=== PATIENT | male | born 1960 | race Two or more races ===

== ENCOUNTER 2024-01-21 16:10 | Inpatient (IN) | payer MEDICARE, MEDICAID ==
[~2024-01-21] VITALS: Ht 190.5 cm; Wt 178.7 kg
[2024-01-21 18:12] LABS: Basophils # (auto) 0.1 10 ^3/uL (0-0.2); Basophils % (auto) 0.3 % (0.0-2.0); Eosinophils # (auto) 0.2 10 ^3/uL (0-0.8); Eosinophils % (auto) 1.1 % (0.0-7.0); Hematocrit 31.3 % (41.0-53.0); Hemoglobin 10.2 g/dL (13.5-17.5); Lymphocytes # (auto) 1.1 10 ^3/uL (0.4-5.4); Lymphocytes % (auto) 7.9 % (10.0-50.0); Mean Corpuscular Hemoglobin 27.9 pg (28.0-32.0); Mean Corpuscular Hgb Conc. 32.5 g/dL (32.0-36.0); Mean Corpuscular Volume 85.9 fL (80.0-100.0); Monocytes # (auto) 1.3 10 ^3/uL (0-1.3); Monocytes % (auto) 8.8 % (0.0-12.0); Neutrophils # (auto) 11.8 10 ^3/uL (1.6-8.6); Neutrophils % (auto) 81.9 % (37.0-80.0); Red Blood Cells 3.64 10^6/uL (4.5-5.90); White Blood Cell 14.4 10^3/uL (4.4-10.8)
[2024-01-21 18:35] LABS: Alanine Aminotransferase 12 U/L (7-40); Alkaline Phosphatase 173 U/L (46-116); Anion Gap 6 (5-15); Aspartate Aminotransferase 21 U/L (13-40); BUN/Creatinine Ratio 10.7 (10.0-20.0); Blood Urea Nitrogen 61 mg/dL (9-23); Calcium 8.2 mg/dL (8.7-10.4); Carbon Dioxide 25 mmol/L (20-30); Chloride 90 mmol/L (98-107); Glucose 224 mg/dL (74-106); Potassium 5.2 mmol/L (3.5-5.1); Sodium 121 mmol/L (136-145)
[2024-01-21 18:36] LABS: Albumin 3.4 g/dL (3.2-4.8); Bilirubin, Total 0.5 mg/dL (0.2-1.0); Total Protein 7.5 g/dL (5.7-8.2)
[2024-01-21] MEDS ORDERED: ACETAMINOPHEN 325 MG TAB PO PRN (19:45)
[2024-01-21] MEDS ORDERED: DOCUSATE SOD 100 MG CAP PO PRN (19:45)
[2024-01-21] MEDS ORDERED: ONDANSETRON HCL 4 MG/2 ML VIAL IV PRN (19:45)
[2024-01-21] MEDS ORDERED: hydrALAZINE HCL 20 MG/ML VL IV PRN (19:45)
[2024-01-21] MEDS ORDERED: MORPHINE SULFATE INJ 2 MG/ml SYRG IV PRN (21:30)
[2024-01-21] MEDS ORDERED: NITROGLYCERIN 0.4 MG SL TAB SL PRN (21:30)
[2024-01-22 00:40] VITALS: PULSE 102; RESP 18; O2SAT 99
[2024-01-22] MEDS: APIXABAN 5 MG TAB PO SCH (01:09)
[2024-01-22] MEDS: CARVEDILOL 12.5 MG TAB PO SCH (01:10)
[2024-01-22] MEDS: cefTRIAXone 1GM/50ML D5W 50 ML IV ONE (01:11)
[2024-01-22] MEDS: ATORVASTATIN 20 MG TAB PO SCH (01:11)
[2024-01-22 02:58] LABS: Urine Bacteria None Seen /hpf (None Seen)
[2024-01-22 03:18] LABS: Urine Blood TRACE /uL (Negative); Urine Clarity Clear (Clear); Urine Color Light-Yellow (Yellow); Urine Protein, UAD 2+ (Negative); Urine Specific Gravity 1.007 (1.001-1.035); Urine Urobilinogen Normal (Negative); Urine WBC 4 /hpf (0 - 3)
[2024-01-22] MEDS: HYDROcodone-ACET 5/325MG TAB PO PRN (05:21)
[2024-01-22 06:18] LABS: Basophils # (auto) 0 10 ^3/uL (0-0.2); Basophils % (auto) 0.3 % (0.0-2.0); Eosinophils # (auto) 0.1 10 ^3/uL (0-0.8); Eosinophils % (auto) 0.9 % (0.0-7.0); Hematocrit 29.6 % (41.0-53.0); Hemoglobin 9.7 g/dL (13.5-17.5); Lymphocytes # (auto) 1.1 10 ^3/uL (0.4-5.4); Lymphocytes % (auto) 7.6 % (10.0-50.0); Mean Corpuscular Hgb Conc. 32.7 g/dL (32.0-36.0); Mean Corpuscular Volume 85.8 fL (80.0-100.0); Monocytes # (auto) 1.2 10 ^3/uL (0-1.3); Monocytes % (auto) 8.4 % (0.0-12.0); Neutrophils # (auto) 11.9 10 ^3/uL (1.6-8.6); Neutrophils % (auto) 82.8 % (37.0-80.0); Nucleated Red Blood Cells % 0.1 %; Red Blood Cells 3.44 10^6/uL (4.5-5.90); Red Cell Distribution Width 14.2 % (11.8-14.3); White Blood Cell 14.4 10^3/uL (4.4-10.8)
[2024-01-22 06:34] LABS: Alanine Aminotransferase 12 U/L (7-40); Albumin 3.2 g/dL (3.2-4.8); Alkaline Phosphatase 164 U/L (46-116); Anion Gap 8 (5-15); Aspartate Aminotransferase 20 U/L (13-40); BUN/Creatinine Ratio 10.9 (10.0-20.0); Blood Urea Nitrogen 66 mg/dL (9-23); Calcium 8.2 mg/dL (8.7-10.4); Carbon Dioxide 24 mmol/L (20-30); Chloride 89 mmol/L (98-107); Glucose 216 mg/dL (74-106); Sodium 121 mmol/L (136-145)
[2024-01-22 06:35] LABS: Bilirubin, Total 0.5 mg/dL (0.2-1.0); Total Protein 7.3 g/dL (5.7-8.2)
[2024-01-22 06:39] LABS: Potassium 5.7 mmol/L (3.5-5.1)
[2024-01-22] MEDS: SODIUM ZIRCONIUM CYCL 10 GM PAK PO ONE (07:42)
[2024-01-22] MEDS: ALBUTEROL SULF 2.5 MG/0.5ML(0.5%) NEB SOLN NEB ONE (07:42)
[2024-01-22] MEDS: cefTRIAXone 1GM/50ML D5W 50 ML IV SCH (07:42)
[2024-01-22] MEDS: B-COMPLEX W/ C & FOLIC ACID(NEPHROVITE TAB) PO SCH (07:43)
[2024-01-22] MEDS: SEVELAMER 800 MG TAB PO SCH (07:43)
[2024-01-22] MEDS: SODIUM BICARB 8.4% 50Meq/50ml SYR INJ IV ONE (07:44)
[2024-01-22] MEDS: FUROSEMIDE 40 MG/4 ML VIAL IV ONE (07:44)
[2024-01-22] MEDS: DEXTROSE (50%) 50ML SYRG IV ONE (07:44)
[2024-01-22] MEDS: InsuLIN REG 1unit/0.01ml Soln (100units/ml) IV ONE (07:48)
[2024-01-22] MEDS: CALCIUM GLUC 1,000mg/50ml-NS 50 ML IV ONE ×2 (08:21)
[2024-01-22] MEDS: FAMOTIDINE 20 MG TAB PO SCH (08:22)
[2024-01-22] MEDS ORDERED: SODIUM BICARB 8.4% 50Meq/50ml SYR INJ IV ONE (08:30)
[2024-01-22] MEDS ORDERED: DEXTROSE (50%) 50ML SYRG IV ONE (08:30)
[2024-01-22] MEDS ORDERED: FUROSEMIDE 20 MG/2 ML VIAL IV ONE (08:30)
[2024-01-22] MEDS ORDERED: InsuLIN REG 1unit/0.01ml Soln (100units/ml) IV ONE (08:30)
[2024-01-22] MEDS ORDERED: ALBUTEROL SULF 2.5 MG/0.5ML(0.5%) NEB SOLN NEB ONE (08:30)
[2024-01-22 08:54] VITALS: PULSE 85; RESP 18; O2SAT 91; O2SAT 98
[2024-01-22] MEDS: SODIUM CHL 0.9% 1000 ML BAG XX ONE (09:30)
[2024-01-22] MEDS ORDERED: ASPirin 81 mg TAB PO SCH (10:00)
[2024-01-22] MEDS ORDERED: FAMOTIDINE (10MG/ML) 2ML VL IV SCH (10:00)
[2024-01-22 11:34] LABS: % Iron Saturation 22.3 % (20-55)
[2024-01-22] MEDS ORDERED: DEXTROSE (50%) 50ML SYRG IV PRN (16:00)
[2024-01-22] MEDS: InsuLIN REG 1unit/0.01ml Soln (100units/ml) SC SCH (17:10)
[2024-01-22] MEDS: ACCU-CHEK COMFORT CURVE STRIP VI SCH (17:10)
[2024-01-22] MEDS: AZITHROMYCIN 500MG/ 250ML 250 ML IV ONE (19:00)
[2024-01-22 19:10] VITALS: PULSE 85; RESP 18; O2SAT 98
[2024-01-22 19:31] LABS: COVID19 ANTIGEN SOFIA FIA NEGATIVE (NEGATIVE); Rapid Influenza A Negative (Negative); Rapid Influenza B Negative (Negative)
[2024-01-22] MEDS: EPOETIN ALFA-EPBX 4,000 UNIT/ML VIAL SC ONE (21:13)
[2024-01-22] MEDS: INSULIN LANTUS (GLARGINE) 1 /0.01ml (100units/ml) SC SCH (21:24)
[2024-01-23] VITALS (7 sets, daily range): BP systolic 113–122; BP diastolic 51–64; PULSE 71–84; RESP 18–22; TEMP 36.6; O2SAT 93–100
[2024-01-23] MEDS ORDERED: OYST500T28 (03:09)
[2024-01-23] MEDS ORDERED: ACET-1882 PO (03:09)
[2024-01-23 06:20] LABS: Basophils # (auto) 0 10 ^3/uL (0-0.2); Basophils % (auto) 0.3 % (0.0-2.0); Eosinophils # (auto) 0.2 10 ^3/uL (0-0.8); Eosinophils % (auto) 2.1 % (0.0-7.0); Hematocrit 37.7 % (41.0-53.0); Hemoglobin 13.1 g/dL (13.5-17.5); Lymphocytes # (auto) 2.2 10 ^3/uL (0.4-5.4); Lymphocytes % (auto) 29.6 % (10.0-50.0); Mean Corpuscular Hemoglobin 30.7 pg (28.0-32.0); Mean Corpuscular Hgb Conc. 34.7 g/dL (32.0-36.0); Mean Corpuscular Volume 88.5 fL (80.0-100.0); Monocytes # (auto) 0.8 10 ^3/uL (0-1.3); Monocytes % (auto) 10.4 % (0.0-12.0); Neutrophils # (auto) 4.2 10 ^3/uL (1.6-8.6); Neutrophils % (auto) 57.6 % (37.0-80.0); Red Blood Cells 4.26 10^6/uL (4.5-5.90); Red Cell Distribution Width 12.8 % (11.8-14.3); White Blood Cell 7.3 10^3/uL (4.4-10.8)
[2024-01-23 06:26] LABS: Potassium 4.1 mmol/L (3.5-5.1); Sodium 140 mmol/L (136-145)
[2024-01-23 06:27] LABS: Anion Gap 6 (5-15); Carbon Dioxide 25 mmol/L (20-30)
[2024-01-23 06:28] LABS: Calcium 8.4 mg/dL (8.7-10.4)
[2024-01-23 06:32] LABS: BUN/Creatinine Ratio 11.1 (10.0-20.0); Blood Urea Nitrogen 11 mg/dL (9-23); Glucose 88 mg/dL (74-106)
[2024-01-23 06:33] LABS: Chloride 109 mmol/L (98-107)
[2024-01-23 06:35] LABS: Phosphorus 2.9 mg/dL (2.4-5.1)
[2024-01-23] MEDS ORDERED: AUG875T PO ×2 (09:10→18:59)
[2024-01-23 09:18] LABS: Hepatitis B Surface Antigen Negative (Negative)
[2024-01-23 09:39] LABS: Hepatitis A Ab IgM Negative; Hepatitis B Core IgM Negative
[2024-01-23 09:40] LABS: Hepatitis C Antibody Negative (Negative)
[2024-01-23] MEDS ORDERED: APIX2.5T PO ×2 (10:04→18:59)
[2024-01-23] MEDS ORDERED: MUPI2OIN2 EX ×2 (15:01→18:59)
[2024-01-23] MEDS ORDERED: DOXY-448 PO ×2 (15:04→18:59)
[2024-01-23] MEDS ORDERED: AZITHROMYCIN 500MG/ 250ML 250 ML IV SCH (22:00)
== END 2024-01-23 20:14 | disposition home or self-care (01) | DRG 177 ==
LOC: ER 16:10 → TELE 21:20 → OVERFLOW 21:20 → UNDOADMIN 21:20 → TELE-CENTR 01-23 02:44
PROVIDERS: ADMIT Internal Medicine Pulmonary Disease; ATTEND Internal Medicine Pulmonary Disease
PROC: 5A1D70Z Performance of Urinary Filtration, Intermittent, Less than 6 Hours Per Day (ICD-10-PCS; principal; 2024-01-22)
DX: J15.69 Pneumonia due to other Gram-negative bacteria (principal); J96.01 Acute respiratory failure with hypoxia; N18.6 End stage renal disease; J44.0 Chronic obstructive pulmonary disease with (acute) lower respiratory infection; I13.2 Hypertensive heart and chronic kidney disease with heart failure and with stage 5 chronic kidney disease, or end stage renal disease; J44.1 Chronic obstructive pulmonary disease with (acute) exacerbation; Z68.41 Body mass index [BMI] 40.0-44.9, adult; J15.9 Unspecified bacterial pneumonia; E11.22 Type 2 diabetes mellitus with diabetic chronic kidney disease; E87.5 Hyperkalemia; D63.1 Anemia in chronic kidney disease; E66.01 Morbid (severe) obesity due to excess calories; I50.9 Heart failure, unspecified; E11.65 Type 2 diabetes mellitus with hyperglycemia; Z20.822 Contact with and (suspected) exposure to COVID-19; K21.9 Gastro-esophageal reflux disease without esophagitis; I48.91 Unspecified atrial fibrillation; Z96.653 Presence of artificial knee joint, bilateral; Z99.2 Dependence on renal dialysis; Z88.8 Allergy status to other drugs, medicaments and biological substances; Z88.1 Allergy status to other antibiotic agents
CPT/HCPCS: 36415; 71045; 71250; 76604; 80048; 80053; 80074; 81001; 82728; 82962; 83036; 83540; 83550; 83605; 83880; 84100; 84132; 84484; 85025; 87040; 87081; 87426; 87804; 90935; 93306; 93970; 94640; G0378; J1642; J1815

== ENCOUNTER 2024-01-30 11:00 | Inpatient (IN) | payer MEDICARE, MEDICAID ==
[~2024-01-30] VITALS: Ht 190.5 cm; Wt 173.5 kg
[~2024-01-30 11:00] MED LIST: ACET-1882 PO; APIX2.5T PO; AUG875T PO; DOXY-448 PO; MUPI2OIN2 EX; OYST500T28
[2024-01-30 11:56] LABS: Basophils # (auto) 0.1 10 ^3/uL (0-0.2); Basophils % (auto) 0.4 % (0.0-2.0); Eosinophils # (auto) 0.2 10 ^3/uL (0-0.8); Eosinophils % (auto) 1.5 % (0.0-7.0); Hemoglobin 9.7 g/dL (13.5-17.5); Lymphocytes # (auto) 1.2 10 ^3/uL (0.4-5.4); Mean Corpuscular Hemoglobin 28.5 pg (28.0-32.0); Mean Corpuscular Hgb Conc. 32.3 g/dL (32.0-36.0); Mean Corpuscular Volume 88.3 fL (80.0-100.0); Monocytes # (auto) 1.3 10 ^3/uL (0-1.3); Monocytes % (auto) 8.5 % (0.0-12.0); Neutrophils # (auto) 12.5 10 ^3/uL (1.6-8.6); Neutrophils % (auto) 81.6 % (37.0-80.0); Nucleated Red Blood Cells % 0.1 %; Red Cell Distribution Width 14.6 % (11.8-14.3); White Blood Cell 15.3 10^3/uL (4.4-10.8)
[2024-01-30 12:00] VITALS: PULSE 100; O2SAT 99
[2024-01-30 12:03] LABS: Alanine Aminotransferase 12 U/L (7-40); Albumin 3.2 g/dL (3.2-4.8); Alkaline Phosphatase 159 U/L (46-116); Anion Gap 6 (5-15); Aspartate Aminotransferase 17 U/L (13-40); BUN/Creatinine Ratio 8.6 (10.0-20.0); Blood Urea Nitrogen 44 mg/dL (9-23); Carbon Dioxide 28 mmol/L (20-30); Chloride 91 mmol/L (98-107); Glucose 321 mg/dL (74-106); INR 1.18 (0.9-1.15); Partial Thromboplastin Time 31.2 SEC (24.5-34.5); Potassium 4.9 mmol/L (3.5-5.1); Prothrombin Time 12.4 sec (9.3-11.8); Sodium 125 mmol/L (136-145)
[2024-01-30 12:04] LABS: Bilirubin, Total 0.3 mg/dL (0.2-1.0); Total Protein 7.5 g/dL (5.7-8.2)
[2024-01-30] MEDS ORDERED: ACETAMINOPHEN 325 MG TAB PO PRN (15:30)
[2024-01-30] MEDS: SODIUM CHLOR 0.9% PF (SALINE LOCK) 10ML VIAL/SYR IV SCH (21:52)
[2024-01-30] MEDS: APIXABAN 2.5 MG TAB PO SCH (22:18)
[2024-01-30] MEDS: BUMETANIDE 2.5mg/10ml (0.25 mg/ml) INJ IV SCH (22:18)
[2024-01-30] MEDS: HYDROcodone-ACET 5/325MG TAB PO PRN (22:18)
[2024-01-30] MEDS: ONDANSETRON HCL 4 MG/2 ML VIAL IV PRN (22:19)
[2024-01-30 23:57] VITALS: BP 99/53; PULSE 86; RESP 19; TEMP 98.7; O2SAT 95
[2024-01-31] VITALS (7 sets, daily range): BP systolic 99–134; BP diastolic 45–99; PULSE 67–98; RESP 15–19; TEMP 97–98.9; O2SAT 88–100
[2024-01-31] MEDS ORDERED: MAGN241.4 PO (01:58)
[2024-01-31] MEDS ORDERED: GUAI400T13 PO (01:58)
[2024-01-31] MEDS ORDERED: CYCL-839 PO (01:58)
[2024-01-31] MEDS ORDERED: FURO40TA4 PO (01:58)
[2024-01-31] MEDS ORDERED: ATOR20TA50 PO (01:58)
[2024-01-31] MEDS ORDERED: APIX5TAB PO (01:58)
[2024-01-31] MEDS ORDERED: SITA50TA PO (01:58)
[2024-01-31 07:59] LABS: Chloride 92 mmol/L (98-107); Potassium 5.1 mmol/L (3.5-5.1); Sodium 124 mmol/L (136-145)
[2024-01-31 08:00] LABS: Anion Gap 7 (5-15); Calcium 8.3 mg/dL (8.7-10.4); Carbon Dioxide 25 mmol/L (20-30)
[2024-01-31 08:05] LABS: BUN/Creatinine Ratio 8.2 (10.0-20.0); Blood Urea Nitrogen 47 mg/dL (9-23)
[2024-01-31 08:06] LABS: Glucose 178 mg/dL (74-106)
[2024-01-31 10:08] LABS: Basophils # (auto) 0.1 10 ^3/uL (0-0.2); Basophils % (auto) 0.9 % (0.0-2.0); Eosinophils # (auto) 0.3 10 ^3/uL (0-0.8); Lymphocytes # (auto) 1.7 10 ^3/uL (0.4-5.4); Lymphocytes % (auto) 11.5 % (10.0-50.0); Mean Corpuscular Hemoglobin 28.2 pg (28.0-32.0); Mean Corpuscular Hgb Conc. 32.3 g/dL (32.0-36.0); Mean Corpuscular Volume 87.4 fL (80.0-100.0); Monocytes # (auto) 1.5 10 ^3/uL (0-1.3); Monocytes % (auto) 10.2 % (0.0-12.0); Neutrophils # (auto) 10.8 10 ^3/uL (1.6-8.6); Neutrophils % (auto) 75.4 % (37.0-80.0); Red Blood Cells 3.55 10^6/uL (4.5-5.90); Red Cell Distribution Width 14.6 % (11.8-14.3); White Blood Cell 14.3 10^3/uL (4.4-10.8)
[2024-01-31] MEDS: CEFEPIME 1GM/ 50ML 50 ML IV SCH (13:04)
[2024-01-31] MEDS ORDERED: DEXTROSE (50%) 50ML SYRG IV PRN (15:30)
[2024-01-31] MEDS: ACCU-CHEK COMFORT CURVE STRIP VI SCH (17:42)
[2024-01-31] MEDS: FUROSEMIDE 40 MG TAB PO ONE (17:45)
[2024-01-31] MEDS: InsuLIN REG 1unit/0.01ml Soln (100units/ml) SC SCH ×2 (17:45→22:13)
[2024-01-31] MEDS: CALCIUM ACETATE 667 MG CAP PO SCH (17:48)
[2024-01-31] MEDS: ATORVASTATIN 20 MG TAB PO SCH (21:57)
[2024-01-31] MEDS: APIXABAN 5 MG TAB PO SCH (21:57)
[2024-02-01 01:00] VITALS: BP 119/63; PULSE 86; RESP 18; TEMP 98.1; O2SAT 92
[2024-02-01 05:00] VITALS: BP 122/68; PULSE 98; RESP 18; TEMP 98; O2SAT 92
[2024-02-01] MEDS: SODIUM CHL 0.9% 1000 ML BAG XX ONE (07:00)
[2024-02-01 07:33] LABS: Basophils # (auto) 0.1 10 ^3/uL (0-0.2); Basophils % (auto) 0.5 % (0.0-2.0); Eosinophils # (auto) 0.2 10 ^3/uL (0-0.8); Eosinophils % (auto) 1.5 % (0.0-7.0); Hematocrit 31.9 % (41.0-53.0); Hemoglobin 10.1 g/dL (13.5-17.5); Lymphocytes # (auto) 1.4 10 ^3/uL (0.4-5.4); Lymphocytes % (auto) 8.5 % (10.0-50.0); Mean Corpuscular Hemoglobin 27.9 pg (28.0-32.0); Mean Corpuscular Hgb Conc. 31.5 g/dL (32.0-36.0); Mean Corpuscular Volume 88.6 fL (80.0-100.0); Monocytes # (auto) 1.4 10 ^3/uL (0-1.3); Monocytes % (auto) 8.6 % (0.0-12.0); Neutrophils % (auto) 80.9 % (37.0-80.0); Red Cell Distribution Width 14.4 % (11.8-14.3); White Blood Cell 16.1 10^3/uL (4.4-10.8)
[2024-02-01 07:44] LABS: Chloride 90 mmol/L (98-107); Sodium 124 mmol/L (136-145)
[2024-02-01 07:45] LABS: Anion Gap 12 (5-15); Calcium 8.2 mg/dL (8.7-10.4); Carbon Dioxide 22 mmol/L (20-30)
[2024-02-01 07:49] VITALS: BP 108/57; PULSE 66; RESP 22; TEMP 98.6
[2024-02-01 07:50] LABS: BUN/Creatinine Ratio 7.4 (10.0-20.0); Blood Urea Nitrogen 48 mg/dL (9-23); Glucose 166 mg/dL (74-106)
[2024-02-01 07:54] LABS: Potassium 5.7 mmol/L (3.5-5.1)
[2024-02-01] MEDS ORDERED: VANCOMYCIN PER PHARMACY 0 MG IV SCH (09:30)
[2024-02-01] MEDS: MUPIROCIN 2% OINT 15gm or 22gm FOR MRSA NARES EACHNOSTRI SCH (10:04)
[2024-02-01 11:44] VITALS: BP 136/55; PULSE 82; RESP 20; TEMP 98.7; O2SAT 97
[2024-02-01] MEDS: FUROSEMIDE 40 MG TAB PO SCH (14:12)
[2024-02-01] MEDS: VANCOMYCIN 1GM/200ML 200 ML IV ONE (14:30)
[2024-02-01 16:38] VITALS: BP 125/71; PULSE 83; RESP 22; TEMP 98.7; O2SAT 90
[2024-02-01] MEDS: METOPROLOL SUCCINATE XL 50 MG TAB PO ONE (19:30)
[2024-02-01 21:00] VITALS: BP 115/64; PULSE 74; RESP 18; O2SAT 95
[2024-02-01] MEDS: EPOETIN ALFA-EPBX 10,000 UNIT/1ML VIAL SC ONE (21:01)
[2024-02-02] VITALS (7 sets, daily range): BP systolic 96–138; BP diastolic 50–68; PULSE 63–102; RESP 16–20; TEMP 97.3–98.7; O2SAT 90–97
[2024-02-02 06:09] LABS: Chloride 95 mmol/L (98-107); Potassium 4.9 mmol/L (3.5-5.1)
[2024-02-02 06:10] LABS: Anion Gap 8 (5-15); Basophils # (auto) 0.1 10 ^3/uL (0-0.2); Basophils % (auto) 0.5 % (0.0-2.0); Calcium 8.6 mg/dL (8.7-10.4); Carbon Dioxide 28 mmol/L (20-30); Eosinophils # (auto) 0.2 10 ^3/uL (0-0.8); Eosinophils % (auto) 1.5 % (0.0-7.0); Hematocrit 35.4 % (41.0-53.0); Hemoglobin 11.5 g/dL (13.5-17.5); Lymphocytes # (auto) 0.8 10 ^3/uL (0.4-5.4); Mean Corpuscular Hemoglobin 28.9 pg (28.0-32.0); Mean Corpuscular Hgb Conc. 32.5 g/dL (32.0-36.0); Mean Corpuscular Volume 88.9 fL (80.0-100.0); Monocytes # (auto) 1.2 10 ^3/uL (0-1.3); Monocytes % (auto) 9.6 % (0.0-12.0); Neutrophils # (auto) 9.8 10 ^3/uL (1.6-8.6); Neutrophils % (auto) 81.4 % (37.0-80.0); Nucleated Red Blood Cells % 0.1 %; Red Blood Cells 3.98 10^6/uL (4.5-5.90); Red Cell Distribution Width 14.9 % (11.8-14.3); White Blood Cell 12.1 10^3/uL (4.4-10.8)
[2024-02-02 06:15] LABS: BUN/Creatinine Ratio 7.1 (10.0-20.0); Glucose 214 mg/dL (74-106)
[2024-02-02 06:36] LABS: Blood Urea Nitrogen 38 mg/dL (9-23); Sodium 131 mmol/L (136-145)
[2024-02-02] MEDS: METOPROLOL SUCCINATE XL 50 MG TAB PO SCH (09:19)
[2024-02-02 10:03] LABS: Base Excess -0.3 mmol/L (-2.0-2.0)
[2024-02-02] MEDS: VANCOMYCIN 1GM/200ML 200 ML IV ONE (16:00)
[2024-02-02] MEDS ORDERED: DOX100PBAE PO (17:14)
[2024-02-03] VITALS (8 sets, daily range): BP systolic 105–133; BP diastolic 55–67; PULSE 69–92; RESP 16–21; TEMP 36.6–37; O2SAT 91–100
[2024-02-03 08:55] LABS: Hepatitis B Surface Antigen Negative (Negative)
[2024-02-03 09:16] LABS: Hepatitis A Ab IgM Negative
[2024-02-03 09:17] LABS: Hepatitis B Core IgM Negative; Hepatitis C Antibody Negative (Negative)
[2024-02-03 09:32] LABS: Chloride 97 mmol/L (98-107); Potassium 5.1 mmol/L (3.5-5.1); Sodium 133 mmol/L (136-145)
[2024-02-03 09:33] LABS: Anion Gap 11 (5-15); Carbon Dioxide 25 mmol/L (20-30)
[2024-02-03 09:34] LABS: Calcium 8.1 mg/dL (8.7-10.4)
[2024-02-03 09:39] LABS: BUN/Creatinine Ratio 9.7 (10.0-20.0); Glucose 186 mg/dL (74-106)
[2024-02-03 09:41] LABS: Blood Urea Nitrogen 58 mg/dL (9-23)
[2024-02-03] MEDS: SODIUM ZIRCONIUM CYCL 10 GM PAK PO ONE (12:12)
[2024-02-03] MEDS: VANCOMYCIN 1GM/200ML 200 ML IV ONE (12:13)
[2024-02-04] MEDS ORDERED: SODIUM CHL 0.9% 1000 ML BAG XX ONE (07:00)
[2024-02-04] MEDS ORDERED: EPOETIN ALFA-EPBX 10,000 UNIT/1ML VIAL SC ONE (21:00)
== END 2024-02-03 22:38 | disposition home or self-care (01) | DRG 640 ==
LOC: ER 11:00 → EDBD 11:00 → OVERFLOW 15:26 → EAST 15:26 → CENTRAL 23:43 → EAST 02-02 14:46
PROVIDERS: ADMIT Internal Medicine Geriatric Medicine; ATTEND Emergency Medicine
PROC: 5A1D70Z Performance of Urinary Filtration, Intermittent, Less than 6 Hours Per Day (ICD-10-PCS; principal; 2024-02-01)
DX: E87.5 Hyperkalemia (principal); N18.6 End stage renal disease; I13.2 Hypertensive heart and chronic kidney disease with heart failure and with stage 5 chronic kidney disease, or end stage renal disease; Z68.42 Body mass index [BMI] 45.0-49.9, adult; J44.0 Chronic obstructive pulmonary disease with (acute) lower respiratory infection; J96.10 Chronic respiratory failure, unspecified whether with hypoxia or hypercapnia; E66.2 Morbid (severe) obesity with alveolar hypoventilation; E87.1 Hypo-osmolality and hyponatremia; I48.0 Paroxysmal atrial fibrillation; D63.1 Anemia in chronic kidney disease; E83.39 Other disorders of phosphorus metabolism; I50.9 Heart failure, unspecified; E11.22 Type 2 diabetes mellitus with diabetic chronic kidney disease; K21.9 Gastro-esophageal reflux disease without esophagitis; Z88.8 Allergy status to other drugs, medicaments and biological substances; Z79.899 Other long term (current) drug therapy; Z79.1 Long term (current) use of non-steroidal anti-inflammatories (NSAID); Z88.1 Allergy status to other antibiotic agents; Z99.2 Dependence on renal dialysis; Z74.01 Bed confinement status; Z79.85 Long-term (current) use of injectable non-insulin antidiabetic drugs; J20.9 Acute bronchitis, unspecified
CPT/HCPCS: 36415; 36600; 71045; 76604; 80048; 80053; 80074; 80202; 82565; 82805; 82962; 84100; 85025; 85610; 85730; 87040; 87081; 90935; 93005; G0378; J1642; J1815; J2405

== ENCOUNTER 2024-02-05 13:56 | Inpatient (IN) | payer MEDICARE, MEDICAID ==
[~2024-02-05] VITALS: Ht 182.9 cm; Wt 164.4 kg
[~2024-02-05 13:56] MED LIST changes: +APIX5TAB PO; +ATOR20TA50 PO; +CYCL-839 PO; +DOX100PBAE PO; +FURO40TA4 PO; +GUAI400T13 PO; +MAGN241.4 PO; +SITA50TA PO
[2024-02-05 14:16] VITALS: PULSE 81; RESP 18; O2SAT 98
[2024-02-05 15:44] LABS: Basophils # (auto) 0.1 10 ^3/uL (0-0.2); Basophils % (auto) 0.9 % (0.0-2.0); Eosinophils # (auto) 0.2 10 ^3/uL (0-0.8); Eosinophils % (auto) 1.5 % (0.0-7.0); Hematocrit 32.9 % (41.0-53.0); Hemoglobin 10.5 g/dL (13.5-17.5); Lymphocytes # (auto) 1.2 10 ^3/uL (0.4-5.4); Lymphocytes % (auto) 9.5 % (10.0-50.0); Mean Corpuscular Hemoglobin 27.8 pg (28.0-32.0); Mean Corpuscular Hgb Conc. 31.8 g/dL (32.0-36.0); Mean Corpuscular Volume 87.5 fL (80.0-100.0); Monocytes # (auto) 1.3 10 ^3/uL (0-1.3); Neutrophils # (auto) 9.4 10 ^3/uL (1.6-8.6); Neutrophils % (auto) 77.1 % (37.0-80.0); Red Blood Cells 3.76 10^6/uL (4.5-5.90); Red Cell Distribution Width 15.1 % (11.8-14.3); White Blood Cell 12.2 10^3/uL (4.4-10.8)
[2024-02-05 16:04] LABS: Alanine Aminotransferase 13 U/L (7-40); Albumin 3.4 g/dL (3.2-4.8); Alkaline Phosphatase 178 U/L (46-116); Anion Gap 10 (5-15); Aspartate Aminotransferase 23 U/L (13-40); BUN/Creatinine Ratio 8.3 (10.0-20.0); Bilirubin, Total 0.3 mg/dL (0.2-1.0); Blood Urea Nitrogen 62 mg/dL (9-23); Calcium 8.8 mg/dL (8.7-10.4); Carbon Dioxide 25 mmol/L (20-30); Chloride 96 mmol/L (98-107); Glucose 257 mg/dL (74-106); Potassium 4.7 mmol/L (3.5-5.1); Sodium 131 mmol/L (136-145); Total Protein 7.9 g/dL (5.7-8.2)
[2024-02-05 16:22] LABS: Urine Bacteria None Seen /hpf (None Seen)
[2024-02-05 16:33] LABS: Urine Blood TRACE /uL (Negative); Urine Clarity Clear (Clear); Urine Color Light-Yellow (Yellow); Urine Protein, UAD 2+ (Negative); Urine Urobilinogen Normal (Negative); Urine WBC 5 /hpf (0 - 3); Urine pH 6.5 (5.0-9.0)
[2024-02-05] MEDS: FUROSEMIDE 20 MG/2 ML VIAL IV ONE ×2 (16:59→20:51)
[2024-02-05 19:17] VITALS: PULSE 109; RESP 18; O2SAT 100
[2024-02-05] MEDS ORDERED: ACETAMINOPHEN 325 MG TAB PO PRN (20:00)
[2024-02-05] MEDS ORDERED: DOCUSATE SOD 100 MG CAP PO PRN (20:00)
[2024-02-05] MEDS ORDERED: ONDANSETRON HCL 4 MG/2 ML VIAL IV PRN (20:00)
[2024-02-05] MEDS: APIXABAN 5 MG TAB PO SCH (20:52)
[2024-02-05] MEDS: SODIUM CHLOR 0.9% PF (SALINE LOCK) 10ML VIAL/SYR IV SCH (22:21)
[2024-02-06] MEDS: SODIUM CHLORIDE 0.9% 500 ML IV ONE (04:53)
[2024-02-06] MEDS: FUROSEMIDE 40 MG/4 ML VIAL IV SCH (06:03)
[2024-02-06 08:30] VITALS: BP 124/46; PULSE 78; RESP 20; TEMP 97.3; O2SAT 98
[2024-02-06 09:00] VITALS: BP 124/46; PULSE 78; RESP 20; TEMP 97.3; O2SAT 98
[2024-02-06] MEDS: HYDROcodone-ACET 5/325MG TAB PO PRN (09:52)
[2024-02-06 10:51] LABS: Basophils # (auto) 0.1 10 ^3/uL (0-0.2); Eosinophils # (auto) 0.2 10 ^3/uL (0-0.8); Eosinophils % (auto) 1.3 % (0.0-7.0); Hemoglobin 10.2 g/dL (13.5-17.5); Lymphocytes # (auto) 1.1 10 ^3/uL (0.4-5.4); Nucleated Red Blood Cells % 0.1 %
[2024-02-06 10:53] LABS: Basophils % (auto) 0.4 % (0.0-2.0); Hematocrit 33.1 % (41.0-53.0); Lymphocytes % (auto) 7.7 % (10.0-50.0); Mean Corpuscular Hemoglobin 27.7 pg (28.0-32.0); Mean Corpuscular Hgb Conc. 30.7 g/dL (32.0-36.0); Mean Corpuscular Volume 90.2 fL (80.0-100.0); Monocytes # (auto) 1.2 10 ^3/uL (0-1.3); Monocytes % (auto) 8.9 % (0.0-12.0); Neutrophils # (auto) 11.2 10 ^3/uL (1.6-8.6); Neutrophils % (auto) 81.7 % (37.0-80.0); Red Blood Cells 3.67 10^6/uL (4.5-5.90); Red Cell Distribution Width 15.3 % (11.8-14.3); White Blood Cell 13.7 10^3/uL (4.4-10.8)
[2024-02-06 11:02] LABS: Alanine Aminotransferase 14 U/L (7-40); Albumin 3.3 g/dL (3.2-4.8); Alkaline Phosphatase 161 U/L (46-116); Anion Gap 10 (5-15); Aspartate Aminotransferase 23 U/L (13-40); BUN/Creatinine Ratio 8.5 (10.0-20.0); Blood Urea Nitrogen 67 mg/dL (9-23); Calcium 8.8 mg/dL (8.7-10.4); Carbon Dioxide 25 mmol/L (20-30); Chloride 96 mmol/L (98-107); Glucose 166 mg/dL (74-106); Potassium 5.2 mmol/L (3.5-5.1); Sodium 131 mmol/L (136-145)
[2024-02-06 11:03] LABS: Bilirubin, Total 0.3 mg/dL (0.2-1.0); Total Protein 7.6 g/dL (5.7-8.2)
[2024-02-06 13:09] VITALS: BP 106/47; PULSE 76; RESP 20; TEMP 97.2; O2SAT 99
[2024-02-06 17:21] VITALS: BP 130/67; PULSE 84; RESP 20; TEMP 97.2; O2SAT 98
[2024-02-06 20:00] VITALS: PULSE 102; RESP 17; O2SAT 100
[2024-02-06 21:00] VITALS: BP 130/64; PULSE 102; RESP 17; TEMP 100; O2SAT 100
[2024-02-06] MEDS: ATORVASTATIN 20 MG TAB PO SCH (21:59)
[2024-02-06] MEDS: EPOETIN ALFA-EPBX 4,000 UNIT/ML VIAL SC ONE (22:01)
[2024-02-07] VITALS (7 sets, daily range): BP systolic 100–126; BP diastolic 51–68; PULSE 80–104; RESP 16–19; TEMP 97.8–99.6; O2SAT 92–100
[2024-02-07] MEDS: CYCLOBENZAPRINE HCL 10 MG TAB PO PRN (03:36)
[2024-02-07 06:45] LABS: Anion Gap 8 (5-15); Carbon Dioxide 28 mmol/L (20-30); Chloride 96 mmol/L (98-107); Potassium 4.6 mmol/L (3.5-5.1); Sodium 132 mmol/L (136-145)
[2024-02-07 06:46] LABS: Calcium 8.7 mg/dL (8.7-10.4)
[2024-02-07 06:49] LABS: % Iron Saturation 21.2 % (20-55)
[2024-02-07 06:52] LABS: BUN/Creatinine Ratio 8.3 (10.0-20.0); Glucose 211 mg/dL (74-106)
[2024-02-07 06:54] LABS: Blood Urea Nitrogen 50 mg/dL (9-23)
[2024-02-07 07:01] LABS: Basophils # (auto) 0.1 10 ^3/uL (0-0.2); Basophils % (auto) 0.7 % (0.0-2.0); Eosinophils # (auto) 0.2 10 ^3/uL (0-0.8); Eosinophils % (auto) 1.2 % (0.0-7.0); Hematocrit 31.6 % (41.0-53.0); Lymphocytes % (auto) 7.8 % (10.0-50.0); Mean Corpuscular Hemoglobin 27.8 pg (28.0-32.0); Mean Corpuscular Hgb Conc. 31.6 g/dL (32.0-36.0); Monocytes # (auto) 1.3 10 ^3/uL (0-1.3); Monocytes % (auto) 9.7 % (0.0-12.0); Neutrophils # (auto) 10.5 10 ^3/uL (1.6-8.6); Neutrophils % (auto) 80.6 % (37.0-80.0); Red Blood Cells 3.59 10^6/uL (4.5-5.90); Red Cell Distribution Width 15.5 % (11.8-14.3)
[2024-02-07 07:17] LABS: Phosphorus 5.1 mg/dL (2.4-5.1)
[2024-02-07] MEDS: SODIUM CHL 0.9% 1000 ML BAG XX ONE ×2 (08:00→08:28)
[2024-02-07] MEDS: ALBUMIN 25% 50 ML IV ONE (09:26)
[2024-02-08] VITALS (7 sets, daily range): BP systolic 112–145; BP diastolic 40–70; PULSE 94–103; RESP 18–20; TEMP 97.3–98.6; O2SAT 92–100
[2024-02-08 06:02] LABS: Basophils # (auto) 0 10 ^3/uL (0-0.2); Basophils % (auto) 0.4 % (0.0-2.0); Eosinophils # (auto) 0.2 10 ^3/uL (0-0.8); Eosinophils % (auto) 1.5 % (0.0-7.0); Hematocrit 31.4 % (41.0-53.0); Hemoglobin 9.9 g/dL (13.5-17.5); Lymphocytes # (auto) 0.9 10 ^3/uL (0.4-5.4); Lymphocytes % (auto) 8.3 % (10.0-50.0); Mean Corpuscular Hgb Conc. 31.4 g/dL (32.0-36.0); Mean Corpuscular Volume 89.3 fL (80.0-100.0); Monocytes # (auto) 1.1 10 ^3/uL (0-1.3); Monocytes % (auto) 10.5 % (0.0-12.0); Neutrophils # (auto) 8.6 10 ^3/uL (1.6-8.6); Neutrophils % (auto) 79.3 % (37.0-80.0); Nucleated Red Blood Cells % 0.1 %; Red Blood Cells 3.52 10^6/uL (4.5-5.90); Red Cell Distribution Width 15.2 % (11.8-14.3); White Blood Cell 10.8 10^3/uL (4.4-10.8)
[2024-02-08 06:03] LABS: Anion Gap 8 (5-15); Carbon Dioxide 28 mmol/L (20-30); Chloride 100 mmol/L (98-107); Potassium 4.5 mmol/L (3.5-5.1); Sodium 136 mmol/L (136-145)
[2024-02-08 06:05] LABS: Calcium 8.8 mg/dL (8.7-10.4)
[2024-02-08 06:09] LABS: Glucose 161 mg/dL (74-106)
[2024-02-08 06:10] LABS: Blood Urea Nitrogen 29 mg/dL (9-23)
[2024-02-09] VITALS (8 sets, daily range): BP systolic 96–142; BP diastolic 45–65; PULSE 95–106; RESP 19–22; TEMP 97.8–98.4; O2SAT 96–100
[2024-02-09 06:05] LABS: Basophils # (auto) 0.1 10 ^3/uL (0-0.2); Basophils % (auto) 0.5 % (0.0-2.0); Eosinophils # (auto) 0.2 10 ^3/uL (0-0.8); Eosinophils % (auto) 1.7 % (0.0-7.0); Hemoglobin 9.2 g/dL (13.5-17.5); Lymphocytes # (auto) 0.8 10 ^3/uL (0.4-5.4); Lymphocytes % (auto) 7.8 % (10.0-50.0); Mean Corpuscular Hemoglobin 28.1 pg (28.0-32.0); Mean Corpuscular Hgb Conc. 31.7 g/dL (32.0-36.0); Mean Corpuscular Volume 88.6 fL (80.0-100.0); Monocytes # (auto) 1.2 10 ^3/uL (0-1.3); Neutrophils # (auto) 8.1 10 ^3/uL (1.6-8.6); Red Blood Cells 3.27 10^6/uL (4.5-5.90); Red Cell Distribution Width 15.4 % (11.8-14.3); White Blood Cell 10.4 10^3/uL (4.4-10.8)
[2024-02-09 06:56] LABS: Chloride 99 mmol/L (98-107); Potassium 4.4 mmol/L (3.5-5.1); Sodium 135 mmol/L (136-145)
[2024-02-09 06:57] LABS: Anion Gap 9 (5-15); Carbon Dioxide 27 mmol/L (20-30)
[2024-02-09 06:58] LABS: Calcium 8.5 mg/dL (8.7-10.4)
[2024-02-09 07:02] LABS: BUN/Creatinine Ratio 6.5 (10.0-20.0); Glucose 192 mg/dL (74-106)
[2024-02-09 07:03] LABS: Blood Urea Nitrogen 40 mg/dL (9-23)
[2024-02-10] VITALS (8 sets, daily range): BP systolic 100–147; BP diastolic 56–72; PULSE 78–109; RESP 16–22; TEMP 97.6–98.7; O2SAT 92–98
[2024-02-10 07:13] LABS: Basophils # (auto) 0.1 10 ^3/uL (0-0.2); Basophils % (auto) 0.8 % (0.0-2.0); Eosinophils # (auto) 0.2 10 ^3/uL (0-0.8); Eosinophils % (auto) 1.8 % (0.0-7.0); Hematocrit 32.1 % (41.0-53.0); Hemoglobin 10.2 g/dL (13.5-17.5); Lymphocytes # (auto) 1.1 10 ^3/uL (0.4-5.4); Lymphocytes % (auto) 9.5 % (10.0-50.0); Mean Corpuscular Hemoglobin 28.4 pg (28.0-32.0); Mean Corpuscular Hgb Conc. 31.8 g/dL (32.0-36.0); Mean Corpuscular Volume 89.2 fL (80.0-100.0); Monocytes # (auto) 1.1 10 ^3/uL (0-1.3); Monocytes % (auto) 10.2 % (0.0-12.0); Neutrophils # (auto) 8.6 10 ^3/uL (1.6-8.6); Neutrophils % (auto) 77.7 % (37.0-80.0); Red Cell Distribution Width 16.1 % (11.8-14.3); White Blood Cell 11.1 10^3/uL (4.4-10.8)
[2024-02-10 07:33] LABS: Anion Gap 10 (5-15); Calcium 9.1 mg/dL (8.7-10.4); Carbon Dioxide 27 mmol/L (20-30); Chloride 97 mmol/L (98-107); Potassium 4.6 mmol/L (3.5-5.1); Sodium 134 mmol/L (136-145)
[2024-02-10 07:40] LABS: BUN/Creatinine Ratio 7.4 (10.0-20.0); Blood Urea Nitrogen 49 mg/dL (9-23); Glucose 185 mg/dL (74-106)
[2024-02-10] MEDS ORDERED: SODIUM CHL 0.9% 1000 ML BAG XX ONE (09:15)
[2024-02-11] VITALS (10 sets, daily range): BP systolic 103–140; BP diastolic 53–87; PULSE 76–93; RESP 17–20; TEMP 97.6–98.8; O2SAT 95–98
[2024-02-11 10:36] LABS: Anion Gap 7 (5-15); Carbon Dioxide 30 mmol/L (20-30); Chloride 98 mmol/L (98-107); Potassium 4.5 mmol/L (3.5-5.1); Sodium 135 mmol/L (136-145)
[2024-02-11 10:42] LABS: Glucose 208 mg/dL (74-106)
[2024-02-11 10:43] LABS: BUN/Creatinine Ratio 6.3 (10.0-20.0)
[2024-02-11 10:45] LABS: Blood Urea Nitrogen 34 mg/dL (9-23)
[2024-02-11] MEDS: SODIUM CHL 0.9% 1000 ML BAG XX ONE (11:30)
[2024-02-12] VITALS (8 sets, daily range): BP systolic 104–129; BP diastolic 47–63; PULSE 89–114; RESP 18–20; TEMP 97.8–98.8; O2SAT 92–98
[2024-02-12 05:52] LABS: Basophils # (auto) 0.1 10 ^3/uL (0-0.2); Basophils % (auto) 0.6 % (0.0-2.0); Eosinophils # (auto) 0.2 10 ^3/uL (0-0.8); Eosinophils % (auto) 1.6 % (0.0-7.0); Hematocrit 32.8 % (41.0-53.0); Hemoglobin 10.2 g/dL (13.5-17.5); Lymphocytes # (auto) 0.9 10 ^3/uL (0.4-5.4); Lymphocytes % (auto) 7.2 % (10.0-50.0); Mean Corpuscular Hemoglobin 27.6 pg (28.0-32.0); Mean Corpuscular Volume 89.3 fL (80.0-100.0); Monocytes # (auto) 1.2 10 ^3/uL (0-1.3); Monocytes % (auto) 10.1 % (0.0-12.0); Neutrophils # (auto) 9.5 10 ^3/uL (1.6-8.6); Neutrophils % (auto) 80.5 % (37.0-80.0); Nucleated Red Blood Cells % 0.1 %; Red Blood Cells 3.67 10^6/uL (4.5-5.90); Red Cell Distribution Width 15.9 % (11.8-14.3); White Blood Cell 11.8 10^3/uL (4.4-10.8)
[2024-02-12 06:09] LABS: Anion Gap 7 (5-15); Calcium 8.9 mg/dL (8.7-10.4); Carbon Dioxide 29 mmol/L (20-30); Chloride 100 mmol/L (98-107); Potassium 4.2 mmol/L (3.5-5.1); Sodium 136 mmol/L (136-145)
[2024-02-12 06:15] LABS: BUN/Creatinine Ratio 5.4 (10.0-20.0); Blood Urea Nitrogen 21 mg/dL (9-23); Glucose 164 mg/dL (74-106)
[2024-02-12] MEDS ORDERED: SODIUM CHL 0.9% 1000 ML BAG XX ONE (07:00)
[2024-02-12] MEDS: NYSTATIN TOPICAL POWDER 15GM TOP SCH (22:00)
[2024-02-13 01:00] VITALS: BP 107/52; PULSE 91; RESP 20; TEMP 97.6; O2SAT 98
[2024-02-13 05:00] VITALS: BP 123/69; PULSE 87; RESP 20; TEMP 97.5; O2SAT 91
[2024-02-13 06:30] LABS: Chloride 98 mmol/L (98-107); Potassium 4.6 mmol/L (3.5-5.1); Sodium 133 mmol/L (136-145)
[2024-02-13 06:31] LABS: Anion Gap 8 (5-15); Calcium 9.2 mg/dL (8.7-10.4); Carbon Dioxide 27 mmol/L (20-30)
[2024-02-13 06:36] LABS: Blood Urea Nitrogen 30 mg/dL (9-23); Glucose 170 mg/dL (74-106)
[2024-02-13 08:00] VITALS: PULSE 104; RESP 20; O2SAT 96
[2024-02-13 09:00] VITALS: BP 103/59; PULSE 104; RESP 20; TEMP 97.4; O2SAT 99
[2024-02-13] MEDS ORDERED: NYST150P2 XX (10:59)
[2024-02-13] MEDS ORDERED: FURO1TAB31 PO (10:59)
[2024-02-13] MEDS ORDERED: CYCL-839 PO (10:59)
[2024-02-13] MEDS ORDERED: HYDR-4902 PO (10:59)
[2024-02-13 13:00] VITALS: BP_SYST 111; BP_SYST 92; BP_DIAS 50; BP_DIAS 59; PULSE 81; PULSE 92; RESP 16; RESP 18; TEMP 97.7; TEMP 97.8; O2SAT 97
[2024-02-13 13:07] VITALS: BP 107/52
== END 2024-02-13 22:15 | disposition home or self-care (01) | DRG 640 ==
LOC: ER 13:56 → EDUNIT# 13:56 → EDBD 13:56 → OVERFLOW 19:52 → WEST WING 02-06 07:59
PROVIDERS: ADMIT Internal Medicine Geriatric Medicine; ATTEND Internal Medicine Geriatric Medicine
PROC: 5A1D70Z Performance of Urinary Filtration, Intermittent, Less than 6 Hours Per Day (ICD-10-PCS; principal; 2024-02-06)
PROC: 5A1D70Z Performance of Urinary Filtration, Intermittent, Less than 6 Hours Per Day (ICD-10-PCS; 2024-02-07)
PROC: 5A1D70Z Performance of Urinary Filtration, Intermittent, Less than 6 Hours Per Day (ICD-10-PCS; 2024-02-10)
PROC: 5A1D70Z Performance of Urinary Filtration, Intermittent, Less than 6 Hours Per Day (ICD-10-PCS; 2024-02-11)
PROC: 5A1D70Z Performance of Urinary Filtration, Intermittent, Less than 6 Hours Per Day (ICD-10-PCS; 2024-02-13)
DX: E87.70 Fluid overload, unspecified (principal); G93.41 Metabolic encephalopathy; N18.6 End stage renal disease; Z68.42 Body mass index [BMI] 45.0-49.9, adult; E87.5 Hyperkalemia; E87.1 Hypo-osmolality and hyponatremia; D63.1 Anemia in chronic kidney disease; E66.01 Morbid (severe) obesity due to excess calories; K21.9 Gastro-esophageal reflux disease without esophagitis; I48.91 Unspecified atrial fibrillation; J44.9 Chronic obstructive pulmonary disease, unspecified; I50.9 Heart failure, unspecified; Z91.158 Patient's noncompliance with renal dialysis for other reason; Z88.1 Allergy status to other antibiotic agents; Z74.01 Bed confinement status; Z99.2 Dependence on renal dialysis
CPT/HCPCS: 36415; 70450; 71045; 80048; 80053; 81001; 82728; 82962; 83540; 83550; 83880; 84100; 84484; 85025; 86803; 87081; 87340; 90935; 93005; 96374; 96376; 97163; G0378; J1642

== ENCOUNTER 2024-02-18 09:48 | Inpatient (IN) | payer MEDICARE, MEDICAID ==
[2024-02-18] VITALS (26 sets, daily range): BP systolic 92–139; BP diastolic 39–116; PULSE 64–160; RESP 17–24; TEMP 97.7–98.4; O2SAT 86–100
[~2024-02-18] VITALS: Ht 177.8 cm; Wt 157.5 kg
[~2024-02-18 09:48] MED LIST changes: -APIX2.5T PO; -AUG875T PO; -DOX100PBAE PO; -DOXY-448 PO; +FURO1TAB31 PO; +HYDR-4902 PO; -MUPI2OIN2 EX; +NYST150P2 XX
[2024-02-18] MEDS: ETOMIDATE (2MG/ML) 20ML VIAL IV ONE (10:03)
[2024-02-18] MEDS: ROCURONIUM 10MG/ML 10ML VIAL IV ONE (10:04)
[2024-02-18] MEDS: MIDAZOLAM DRIP 50 mg/50mL 50 ML IV ONE (10:09)
[2024-02-18 11:41] LABS: Basophils # (auto) 0 10 ^3/uL (0-0.2); Basophils % (auto) 0.4 % (0.0-2.0); Eosinophils # (auto) 0.2 10 ^3/uL (0-0.8); Eosinophils % (auto) 1.8 % (0.0-7.0); Hematocrit 35.1 % (41.0-53.0); Hemoglobin 10.9 g/dL (13.5-17.5); Lymphocytes # (auto) 0.6 10 ^3/uL (0.4-5.4); Lymphocytes % (auto) 5.5 % (10.0-50.0); Mean Corpuscular Hemoglobin 28.2 pg (28.0-32.0); Monocytes % (auto) 9.5 % (0.0-12.0); Neutrophils # (auto) 8.4 10 ^3/uL (1.6-8.6); Neutrophils % (auto) 82.8 % (37.0-80.0); Nucleated Red Blood Cells % 0.1 %; Platelet Count (auto) 335 10^3/uL (140-450); Red Blood Cells 3.86 10^6/uL (4.5-5.90); Red Cell Distribution Width 16.9 % (11.8-14.3); White Blood Cell 10.2 10^3/uL (4.4-10.8)
[2024-02-18 11:55] LABS: Alanine Aminotransferase 17 U/L (7-40); Albumin 3.3 g/dL (3.2-4.8); Alkaline Phosphatase 160 U/L (46-116); Anion Gap 5 (5-15); Aspartate Aminotransferase 33 U/L (13-40); BUN/Creatinine Ratio 4.9 (10.0-20.0); Blood Urea Nitrogen 24 mg/dL (9-23); Calcium 8.9 mg/dL (8.7-10.4); Carbon Dioxide 29 mmol/L (20-30); Chloride 98 mmol/L (98-107); Glucose 168 mg/dL (74-106); Potassium 4.6 mmol/L (3.5-5.1); Sodium 132 mmol/L (136-145)
[2024-02-18 11:56] LABS: Bilirubin, Total 0.6 mg/dL (0.2-1.0); Total Protein 8.1 g/dL (5.7-8.2)
[2024-02-18] MEDS: MIDAZOLAM DRIP 50 mg/50mL 50 ML IV SCH (13:00)
[2024-02-18 13:04] LABS: Urine Blood 2+ /uL (Negative); Urine Clarity Ex.Turbid (Clear); Urine Color Brown (Yellow); Urine Protein, UAD 3+ (Negative); Urine Specific Gravity 1.012 (1.001-1.035); Urine Urobilinogen Normal (Negative); Urine WBC 4518 /hpf (0 - 3); Urine WBC Clumps PRESENT /hpf (None Seen)
[2024-02-18] MEDS ORDERED: VANCOMYCIN PER PHARMACY 0 MG IV SCH (13:30)
[2024-02-18] MEDS ORDERED: ONDANSETRON HCL 4 MG/2 ML VIAL IV PRN (13:45)
[2024-02-18] MEDS ORDERED: NITROGLYCERIN 0.4 MG SL TAB SL PRN (13:45)
[2024-02-18] MEDS ORDERED: DOCUSATE SOD 100 MG CAP PO PRN (13:45)
[2024-02-18] MEDS ORDERED: HYDROcodone-ACET 5/325MG TAB PO PRN (13:45)
[2024-02-18] MEDS: NOREPINEPHRINE 8 MG/250ML KIT 250 ML IV SCH (13:45)
[2024-02-18] MEDS ORDERED: DEXTROSE (50%) 50ML SYRG IV PRN (14:00)
[2024-02-18] MEDS: NOREPINEPHRINE 8 MG/250ML KIT 250 ML IV ONE (14:07)
[2024-02-18 14:22] LABS: Creatinine, Urine 62.28 mg/dL (30.0-125.0)
[2024-02-18] MEDS: CEFEPIME 1GM/ 50ML 50 ML IV ONE (14:22)
[2024-02-18] MEDS: SODIUM CHLORIDE 0.9% 1,000 ML IV SCH (14:22)
[2024-02-18 14:26] LABS: Protein, Urine 673.7 mg/dL (0.0-11.9)
[2024-02-18 15:08] LABS: Base Excess 0.4 mmol/L (-2.0-2.0)
[2024-02-18 15:23] LABS: Magnesium 2.1 mg/dL (1.6-2.6)
[2024-02-18 15:24] LABS: Phosphorus 5.7 mg/dL (2.4-5.1)
[2024-02-18] MEDS: VANCOMYCIN 1GM/250ML 200 ML IV ONE (15:27)
[2024-02-18 15:43] LABS: INR 1.16 (0.9-1.15); Partial Thromboplastin Time 27.5 SEC (24.5-34.5); Prothrombin Time 12.2 sec (9.3-11.8)
[2024-02-18] MEDS ORDERED: InsuLIN REG 1unit/0.01ml Soln (100units/ml) SC SCH ×2 (17:00→22:00)
[2024-02-18] MEDS ORDERED: ACCU-CHEK COMFORT CURVE STRIP VI SCH (17:00)
[2024-02-18] MEDS: VANCOMYCIN 500 MG in D5W 5% 100 ML IV ONE (17:22)
[2024-02-18] MEDS: FUROSEMIDE 40 MG TAB PO SCH (18:00)
[2024-02-18] MEDS: ACCU-CHEK COMFORT CURVE STRIP VI SCH (18:32)
[2024-02-18] MEDS: InsuLIN REG 1unit/0.01ml Soln (100units/ml) SC SCH (18:35)
[2024-02-18 19:21] LABS: Amphetamine Screen, Urine Neg (NEGATIVE); Barbiturate Scree,Urine Neg (NEGATIVE); Benzodiazephine Screen, Urine Neg (NEGATIVE); Cannabinoid Screen, Urine Pos (NEGATIVE); Cocaine Screen, Urine Neg (NEGATIVE); Opiate Scree,Urine Neg (NEGATIVE); Phencyclidine Screen, Urine Neg (NEGATIVE)
[2024-02-18] MEDS: FUROSEMIDE 100 MG/10ML VIAL IV ONE (20:54)
[2024-02-18] MEDS ORDERED: APIXABAN 5 MG TAB PO SCH (22:00)
[2024-02-18] MEDS: HEPARIN SODIUM (PORCINE) 5000 UNITS/ML 1ML VIAL SC SCH (22:16)
[2024-02-18] MEDS: FAMOTIDINE (10MG/ML) 2ML VL IV SCH (22:16)
[2024-02-19] VITALS (99 sets, daily range): BP systolic 92–140; BP diastolic 36–90; PULSE 62–89; RESP 15–28; TEMP 97.2–98.6; O2SAT 94–100
[2024-02-19 04:07] LABS: Basophils # (auto) 0 10 ^3/uL (0-0.2); Basophils % (auto) 0.4 % (0.0-2.0); Eosinophils # (auto) 0.2 10 ^3/uL (0-0.8); Eosinophils % (auto) 1.4 % (0.0-7.0); Hematocrit 35.7 % (41.0-53.0); Hemoglobin 11.2 g/dL (13.5-17.5); Lymphocytes # (auto) 0.9 10 ^3/uL (0.4-5.4); Lymphocytes % (auto) 7.6 % (10.0-50.0); Mean Corpuscular Hemoglobin 27.7 pg (28.0-32.0); Mean Corpuscular Hgb Conc. 31.2 g/dL (32.0-36.0); Mean Corpuscular Volume 88.6 fL (80.0-100.0); Monocytes # (auto) 1.1 10 ^3/uL (0-1.3); Monocytes % (auto) 9.9 % (0.0-12.0); Neutrophils # (auto) 9.1 10 ^3/uL (1.6-8.6); Neutrophils % (auto) 80.7 % (37.0-80.0); Nucleated Red Blood Cells % 0.2 %; Platelet Count (auto) 312 10^3/uL (140-450); Red Blood Cells 4.03 10^6/uL (4.5-5.90); Red Cell Distribution Width 17.1 % (11.8-14.3); White Blood Cell 11.3 10^3/uL (4.4-10.8)
[2024-02-19 04:24] LABS: Alanine Aminotransferase 13 U/L (7-40); Albumin 2.8 g/dL (3.2-4.8); Alkaline Phosphatase 140 U/L (46-116); Anion Gap 9 (5-15); Aspartate Aminotransferase 28 U/L (13-40); BUN/Creatinine Ratio 4.5 (10.0-20.0); Bilirubin, Total 0.6 mg/dL (0.2-1.0); Blood Urea Nitrogen 24 mg/dL (9-23); Calcium 8.6 mg/dL (8.7-10.4); Carbon Dioxide 25 mmol/L (20-30); Chloride 99 mmol/L (98-107); Glucose 172 mg/dL (74-106); Sodium 133 mmol/L (136-145)
[2024-02-19] MEDS: FUROSEMIDE 100 MG/10ML VIAL IV SCH (05:39)
[2024-02-19 07:12] LABS: Base Excess -0.5 mmol/L (-2.0-2.0)
[2024-02-19] MEDS ORDERED: SITAGLIPTIN PHOSPHATE PO SCH (10:00)
[2024-02-19] MEDS: MAGNESIUM OXIDE 400 MG TAB PO SCH (10:00)
[2024-02-19] MEDS ORDERED: PATIENTS OWN MEDICATION (Magnesium Oxide (Mag-Ox) 1 TAB) PO SCH (10:00)
[2024-02-19] MEDS ORDERED: ENOXAPARIN SOD 40 MG/0.4 ML SYRINGE SC SCH (10:00)
[2024-02-19] MEDS: ATORVASTATIN 20 MG TAB PO SCH (10:00)
[2024-02-19] MEDS: fentaNYL Drip 2500mCg/250mlNS 250 ML IV SCH (10:36)
[2024-02-19 12:48] LABS: Body Fluid Polymorphonuclear 30 % (0-25); Body Fluid Red Blood Cells 93150 CUMM (0-2000); Body Fluid White Blood Cells 150 CUMM (0-200)
[2024-02-19] MEDS: MEROPENEM 1GM IVPB 50 ML IV ONE (16:15)
[2024-02-19] MEDS: NOREPINEPHRINE 8 MG/250ML KIT 250 ML IV SCH (19:15)
[2024-02-19] MEDS: SODIUM CHL 0.9% 1000 ML BAG XX ONE (19:34)
[2024-02-19] MEDS: MICAFUNGIN SODIUM 100 MG in SODIUM CHL 0.9% 100 ML IV ONE (21:27)
[2024-02-19] MEDS: MEROPENEM 500MG IVPB 50 ML IV SCH (22:26)
[2024-02-20] VITALS (107 sets, daily range): BP systolic 89–136; BP diastolic 23–83; PULSE 68–95; RESP 16–23; TEMP 97.9–98.6; O2SAT 82–100
[2024-02-20 04:44] LABS: Basophils # (auto) 0.1 10 ^3/uL (0-0.2); Basophils % (auto) 0.7 % (0.0-2.0); Eosinophils # (auto) 0.2 10 ^3/uL (0-0.8); Eosinophils % (auto) 1.8 % (0.0-7.0); Hematocrit 36.6 % (41.0-53.0); Hemoglobin 11.3 g/dL (13.5-17.5); Lymphocytes # (auto) 1.1 10 ^3/uL (0.4-5.4); Lymphocytes % (auto) 9.4 % (10.0-50.0); Mean Corpuscular Hemoglobin 27.6 pg (28.0-32.0); Monocytes # (auto) 1.1 10 ^3/uL (0-1.3); Monocytes % (auto) 9.8 % (0.0-12.0); Neutrophils # (auto) 9.1 10 ^3/uL (1.6-8.6); Neutrophils % (auto) 78.3 % (37.0-80.0); Nucleated Red Blood Cells % 0.1 %; Platelet Count (auto) 315 10^3/uL (140-450); Red Blood Cells 4.11 10^6/uL (4.5-5.90); Red Cell Distribution Width 17.4 % (11.8-14.3); White Blood Cell 11.6 10^3/uL (4.4-10.8)
[2024-02-20 05:05] LABS: Alanine Aminotransferase 13 U/L (7-40); Alkaline Phosphatase 142 U/L (46-116); Anion Gap 14 (5-15); Aspartate Aminotransferase 33 U/L (13-40); BUN/Creatinine Ratio 4.8 (10.0-20.0); Blood Urea Nitrogen 20 mg/dL (9-23); Calcium 8.6 mg/dL (8.7-10.4); Carbon Dioxide 20 mmol/L (20-30); Chloride 103 mmol/L (98-107); Glucose 161 mg/dL (74-106); Potassium 4.3 mmol/L (3.5-5.1); Sodium 137 mmol/L (136-145)
[2024-02-20 05:06] LABS: Bilirubin, Total 0.7 mg/dL (0.2-1.0); Total Protein 7.4 g/dL (5.7-8.2)
[2024-02-20 07:48] LABS: Base Excess -1.4 mmol/L (-2.0-2.0)
[2024-02-20 09:09] LABS: Hepatitis B Surface Antigen Negative (Negative)
[2024-02-20 09:30] LABS: Hepatitis A Ab IgM Negative
[2024-02-20 09:31] LABS: Hepatitis B Core IgM Negative
[2024-02-20] MEDS: MICAFUNGIN SODIUM 100 MG in SODIUM CHL 0.9% 100 ML IV SCH (09:52)
[2024-02-20 11:55] LABS: Hepatitis C Antibody Negative (Negative)
[2024-02-20 13:07] LABS: Protein, Body Fluid 5.1 g/dL (.)
[2024-02-20] MEDS: Nepro With Carb Steady 1 Liter Bottle GT SCH (15:26)
[2024-02-20] MEDS: VANCOMYCIN 500 MG in D5W 5% 100 ML IV ONE (16:56)
[2024-02-21] VITALS (109 sets, daily range): BP systolic 83–126; BP diastolic 28–69; PULSE 64–95; RESP 16–25; TEMP 97.9–99; O2SAT 95–99
[2024-02-21 04:39] LABS: Calcium 8.7 mg/dL (8.7-10.4); Chloride 105 mmol/L (98-107); Sodium 137 mmol/L (136-145)
[2024-02-21 04:40] LABS: Anion Gap 10 (5-15); Carbon Dioxide 22 mmol/L (20-30)
[2024-02-21 04:45] LABS: BUN/Creatinine Ratio 5.9 (10.0-20.0); Glucose 161 mg/dL (74-106)
[2024-02-21 04:50] LABS: Basophils # (auto) 0.1 10 ^3/uL (0-0.2); Basophils % (auto) 0.8 % (0.0-2.0); Eosinophils # (auto) 0.2 10 ^3/uL (0-0.8); Eosinophils % (auto) 2.1 % (0.0-7.0); Hematocrit 33.6 % (41.0-53.0); Hemoglobin 10.6 g/dL (13.5-17.5); Lymphocytes % (auto) 9.1 % (10.0-50.0); Mean Corpuscular Hemoglobin 27.3 pg (28.0-32.0); Mean Corpuscular Hgb Conc. 31.4 g/dL (32.0-36.0); Mean Corpuscular Volume 86.7 fL (80.0-100.0); Monocytes % (auto) 9.1 % (0.0-12.0); Neutrophils # (auto) 9.1 10 ^3/uL (1.6-8.6); Neutrophils % (auto) 78.9 % (37.0-80.0); Nucleated Red Blood Cells % 0.2 %; Platelet Count (auto) 316 10^3/uL (140-450); Red Blood Cells 3.87 10^6/uL (4.5-5.90); Red Cell Distribution Width 17.2 % (11.8-14.3); White Blood Cell 11.5 10^3/uL (4.4-10.8)
[2024-02-21 04:58] LABS: Blood Urea Nitrogen 30 mg/dL (9-23)
[2024-02-21 07:45] LABS: Base Excess 1.2 mmol/L (-2.0-2.0)
[2024-02-21] MEDS: LINEZOLID 600MG/300ML 300 ML IV SCH (21:49)
[2024-02-21] MEDS: MUPIROCIN 2% OINT 15gm or 22gm FOR MRSA NARES EACHNOSTRI SCH (21:50)
[2024-02-22] VITALS (115 sets, daily range): BP systolic 85–131; BP diastolic 39–74; PULSE 61–85; RESP 17–30; TEMP 97.5–99; O2SAT 88–100
[2024-02-22 04:31] LABS: Basophils # (auto) 0.1 10 ^3/uL (0-0.2); Basophils % (auto) 0.7 % (0.0-2.0); Eosinophils # (auto) 0.3 10 ^3/uL (0-0.8); Eosinophils % (auto) 3.4 % (0.0-7.0); Hematocrit 32.3 % (41.0-53.0); Hemoglobin 10.4 g/dL (13.5-17.5); Lymphocytes % (auto) 11.1 % (10.0-50.0); Mean Corpuscular Hemoglobin 27.8 pg (28.0-32.0); Mean Corpuscular Volume 86.6 fL (80.0-100.0); Monocytes # (auto) 0.9 10 ^3/uL (0-1.3); Monocytes % (auto) 10.4 % (0.0-12.0); Neutrophils # (auto) 6.5 10 ^3/uL (1.6-8.6); Neutrophils % (auto) 74.4 % (37.0-80.0); Nucleated Red Blood Cells % 0.1 %; Platelet Count (auto) 296 10^3/uL (140-450); Red Blood Cells 3.73 10^6/uL (4.5-5.90); Red Cell Distribution Width 17.8 % (11.8-14.3); White Blood Cell 8.7 10^3/uL (4.4-10.8)
[2024-02-22 04:37] LABS: Calcium 8.8 mg/dL (8.7-10.4); Chloride 105 mmol/L (98-107); Potassium 3.9 mmol/L (3.5-5.1); Sodium 138 mmol/L (136-145)
[2024-02-22 04:38] LABS: Anion Gap 7 (5-15); Carbon Dioxide 26 mmol/L (20-30)
[2024-02-22 04:44] LABS: BUN/Creatinine Ratio 6.9 (10.0-20.0); Glucose 155 mg/dL (74-106)
[2024-02-22 04:47] LABS: Blood Urea Nitrogen 41 mg/dL (9-23)
[2024-02-23] VITALS (108 sets, daily range): BP systolic 69–137; BP diastolic 31–77; PULSE 53–85; RESP 10–36; TEMP 96.3–99.4; O2SAT 95–100
[2024-02-23 04:26] LABS: Alanine Aminotransferase 11 U/L (7-40); Alkaline Phosphatase 165 U/L (46-116); Anion Gap 10 (5-15); BUN/Creatinine Ratio 7.8 (10.0-20.0); Blood Urea Nitrogen 50 mg/dL (9-23); Calcium 8.8 mg/dL (8.7-10.4); Carbon Dioxide 24 mmol/L (20-30); Chloride 104 mmol/L (98-107); Glucose 233 mg/dL (74-106); Potassium 4.4 mmol/L (3.5-5.1); Sodium 138 mmol/L (136-145)
[2024-02-23 04:28] LABS: Albumin 2.6 g/dL (3.2-4.8); Aspartate Aminotransferase 34 U/L (13-40)
[2024-02-23 04:29] LABS: Basophils # (auto) 0.1 10 ^3/uL (0-0.2); Basophils % (auto) 0.9 % (0.0-2.0); Bilirubin, Total 0.4 mg/dL (0.2-1.0); Eosinophils # (auto) 0.3 10 ^3/uL (0-0.8); Eosinophils % (auto) 3.5 % (0.0-7.0); Hematocrit 33.2 % (41.0-53.0); Hemoglobin 10.5 g/dL (13.5-17.5); Lymphocytes # (auto) 1.2 10 ^3/uL (0.4-5.4); Lymphocytes % (auto) 13.2 % (10.0-50.0); Mean Corpuscular Hemoglobin 27.4 pg (28.0-32.0); Mean Corpuscular Hgb Conc. 31.6 g/dL (32.0-36.0); Monocytes # (auto) 0.8 10 ^3/uL (0-1.3); Monocytes % (auto) 9.4 % (0.0-12.0); Neutrophils # (auto) 6.3 10 ^3/uL (1.6-8.6); Nucleated Red Blood Cells % 0.1 %; Platelet Count (auto) 277 10^3/uL (140-450); Red Blood Cells 3.82 10^6/uL (4.5-5.90); Red Cell Distribution Width 18.2 % (11.8-14.3); Total Protein 6.7 g/dL (5.7-8.2); White Blood Cell 8.7 10^3/uL (4.4-10.8)
[2024-02-23] MEDS: SODIUM CHL 0.9% 1000 ML BAG XX ONE (07:00)
[2024-02-23 07:37] LABS: Base Excess -1.7 mmol/L (-2.0-2.0)
[2024-02-23] MEDS: EPOETIN ALFA-EPBX 10,000 UNIT/1ML VIAL SC ONE (20:42)
[2024-02-24] VITALS (96 sets, daily range): BP systolic 69–156; BP diastolic 33–88; PULSE 53–78; RESP 6–21; TEMP 94.6–99.1; O2SAT 92–100
[2024-02-24 04:10] LABS: Basophils # (auto) 0.1 10 ^3/uL (0-0.2); Basophils % (auto) 1.2 % (0.0-2.0); Eosinophils # (auto) 0.4 10 ^3/uL (0-0.8); Hematocrit 32.8 % (41.0-53.0); Hemoglobin 10.2 g/dL (13.5-17.5); Lymphocytes # (auto) 1.3 10 ^3/uL (0.4-5.4); Lymphocytes % (auto) 15.8 % (10.0-50.0); Mean Corpuscular Hemoglobin 26.9 pg (28.0-32.0); Mean Corpuscular Hgb Conc. 31.1 g/dL (32.0-36.0); Mean Corpuscular Volume 86.6 fL (80.0-100.0); Monocytes # (auto) 0.9 10 ^3/uL (0-1.3); Monocytes % (auto) 10.8 % (0.0-12.0); Neutrophils # (auto) 5.3 10 ^3/uL (1.6-8.6); Neutrophils % (auto) 67.2 % (37.0-80.0); Nucleated Red Blood Cells % 0.1 %; Platelet Count (auto) 230 10^3/uL (140-450); Red Blood Cells 3.79 10^6/uL (4.5-5.90); Red Cell Distribution Width 17.7 % (11.8-14.3); White Blood Cell 7.9 10^3/uL (4.4-10.8)
[2024-02-24 04:33] LABS: Alanine Aminotransferase 11 U/L (7-40); Albumin 2.4 g/dL (3.2-4.8); Alkaline Phosphatase 161 U/L (46-116); Anion Gap 10 (5-15); Aspartate Aminotransferase 38 U/L (13-40); BUN/Creatinine Ratio 7.8 (10.0-20.0); Calcium 8.4 mg/dL (8.7-10.4); Carbon Dioxide 25 mmol/L (20-30); Chloride 104 mmol/L (98-107); Glucose 185 mg/dL (74-106); Potassium 3.8 mmol/L (3.5-5.1); Sodium 139 mmol/L (136-145)
[2024-02-24 04:34] LABS: Bilirubin, Total 0.4 mg/dL (0.2-1.0); Total Protein 6.3 g/dL (5.7-8.2)
[2024-02-24 04:35] LABS: Blood Urea Nitrogen 40 mg/dL (9-23)
[2024-02-24 07:31] LABS: Base Excess 2.7 mmol/L (-2.0-2.0)
[2024-02-24] MEDS: HEPARIN SODIUM (PORCINE) 5000 UNITS/ML 1ML VIAL ONE (15:02)
[2024-02-25] VITALS (122 sets, daily range): BP systolic 79–163; BP diastolic 39–79; PULSE 42–83; RESP 14–29; TEMP 97.7–99.1; O2SAT 98–100
[2024-02-25 04:15] LABS: Basophils # (auto) 0.1 10 ^3/uL (0-0.2); Eosinophils # (auto) 0.5 10 ^3/uL (0-0.8); Eosinophils % (auto) 5.1 % (0.0-7.0); Hematocrit 33.9 % (41.0-53.0); Hemoglobin 10.8 g/dL (13.5-17.5); Lymphocytes # (auto) 1.5 10 ^3/uL (0.4-5.4); Lymphocytes % (auto) 17.1 % (10.0-50.0); Mean Corpuscular Hemoglobin 27.5 pg (28.0-32.0); Mean Corpuscular Hgb Conc. 31.8 g/dL (32.0-36.0); Mean Corpuscular Volume 86.4 fL (80.0-100.0); Monocytes # (auto) 0.7 10 ^3/uL (0-1.3); Monocytes % (auto) 8.2 % (0.0-12.0); Neutrophils # (auto) 6.1 10 ^3/uL (1.6-8.6); Neutrophils % (auto) 68.6 % (37.0-80.0); Platelet Count (auto) 260 10^3/uL (140-450); Red Blood Cells 3.93 10^6/uL (4.5-5.90); Red Cell Distribution Width 17.5 % (11.8-14.3); White Blood Cell 8.9 10^3/uL (4.4-10.8)
[2024-02-25 04:20] LABS: Calcium 8.8 mg/dL (8.7-10.4); Chloride 103 mmol/L (98-107); Potassium 4.2 mmol/L (3.5-5.1); Sodium 137 mmol/L (136-145)
[2024-02-25 04:26] LABS: BUN/Creatinine Ratio 8.6 (10.0-20.0); Blood Urea Nitrogen 49 mg/dL (9-23); Glucose 191 mg/dL (74-106)
[2024-02-25 04:30] LABS: Anion Gap 9 (5-15); Carbon Dioxide 25 mmol/L (20-30)
[2024-02-25] MEDS: MAGNESIUM SULFATE 1GM/100ML 100 ML IV SCH (06:01)
[2024-02-25 08:14] LABS: Base Excess -0.3 mmol/L (-2.0-2.0)
[2024-02-25 11:29] LABS: Basophils # (auto) 0.2 10 ^3/uL (0-0.2); Basophils % (auto) 2.8 % (0.0-2.0); Eosinophils # (auto) 0.3 10 ^3/uL (0-0.8); Eosinophils % (auto) 5.2 % (0.0-7.0); Hematocrit 32.9 % (41.0-53.0); Hemoglobin 10.3 g/dL (13.5-17.5); Lymphocytes # (auto) 1.4 10 ^3/uL (0.4-5.4); Lymphocytes % (auto) 21.6 % (10.0-50.0); Mean Corpuscular Hemoglobin 27.3 pg (28.0-32.0); Mean Corpuscular Hgb Conc. 31.4 g/dL (32.0-36.0); Monocytes # (auto) 0.4 10 ^3/uL (0-1.3); Monocytes % (auto) 6.7 % (0.0-12.0); Neutrophils # (auto) 4.1 10 ^3/uL (1.6-8.6); Neutrophils % (auto) 63.7 % (37.0-80.0); Platelet Count (auto) 218 10^3/uL (140-450); Red Blood Cells 3.79 10^6/uL (4.5-5.90); Red Cell Distribution Width 17.4 % (11.8-14.3); White Blood Cell 6.5 10^3/uL (4.4-10.8)
[2024-02-25 11:54] LABS: INR 1.18 (0.9-1.15); Partial Thromboplastin Time 29.4 SEC (24.5-34.5); Prothrombin Time 12.4 sec (9.3-11.8)
[2024-02-25] MEDS: HEPARIN SODIUM (PORCINE) 5000 UNITS/ML 1ML VIAL IV ONE (12:16)
[2024-02-25] MEDS: HEPARIN DRIP/D5W 100UNITS/ML 250 ML IV SCH (12:18)
[2024-02-25 19:23] LABS: INR 1.25 (0.9-1.15)
[2024-02-25 19:40] LABS: Partial Thromboplastin Time > 139.0 SEC (24.5-34.5)
[2024-02-26] VITALS (107 sets, daily range): BP systolic 95–160; BP diastolic 41–99; PULSE 54–85; RESP 13–38; TEMP 97.5–98.7; O2SAT 96–100
[2024-02-26] MEDS: HEPARIN DRIP/D5W 100UNITS/ML 250 ML IV SCH ×3 (02:06→21:15)
[2024-02-26 03:50] LABS: Basophils # (auto) 0.1 10 ^3/uL (0-0.2); Basophils % (auto) 1.2 % (0.0-2.0); Eosinophils # (auto) 0.5 10 ^3/uL (0-0.8); Eosinophils % (auto) 5.3 % (0.0-7.0); Hematocrit 34.1 % (41.0-53.0); Hemoglobin 11.1 g/dL (13.5-17.5); Lymphocytes # (auto) 1.5 10 ^3/uL (0.4-5.4); Lymphocytes % (auto) 17.6 % (10.0-50.0); Mean Corpuscular Hemoglobin 27.7 pg (28.0-32.0); Mean Corpuscular Hgb Conc. 32.6 g/dL (32.0-36.0); Mean Corpuscular Volume 85.2 fL (80.0-100.0); Monocytes # (auto) 0.7 10 ^3/uL (0-1.3); Monocytes % (auto) 8.4 % (0.0-12.0); Neutrophils # (auto) 5.7 10 ^3/uL (1.6-8.6); Neutrophils % (auto) 67.5 % (37.0-80.0); Nucleated Red Blood Cells % 0.2 %; Platelet Count (auto) 184 10^3/uL (140-450); Red Cell Distribution Width 17.7 % (11.8-14.3); White Blood Cell 8.5 10^3/uL (4.4-10.8)
[2024-02-26 04:02] LABS: INR 1.18 (0.9-1.15); Partial Thromboplastin Time 49.3 SEC (24.5-34.5); Prothrombin Time 12.4 sec (9.3-11.8)
[2024-02-26 04:10] LABS: Alanine Aminotransferase 11 U/L (7-40); Albumin 2.6 g/dL (3.2-4.8); Alkaline Phosphatase 219 U/L (46-116); Anion Gap 8 (5-15); Aspartate Aminotransferase 50 U/L (13-40); BUN/Creatinine Ratio 8.8 (10.0-20.0); Bilirubin, Total 0.4 mg/dL (0.2-1.0); Blood Urea Nitrogen 41 mg/dL (9-23); Calcium 8.8 mg/dL (8.7-10.4); Carbon Dioxide 24 mmol/L (20-30); Chloride 103 mmol/L (98-107); Glucose 230 mg/dL (74-106); Potassium 4.3 mmol/L (3.5-5.1); Sodium 135 mmol/L (136-145); Total Protein 6.9 g/dL (5.7-8.2)
[2024-02-26 07:21] LABS: Base Excess 1.1 mmol/L (-2.0-2.0)
[2024-02-26] MEDS ORDERED: PANTOPRAZOLE 40 MG/10 ML VIAL INJ IV SCH (10:00)
[2024-02-26 12:52] LABS: INR 1.18 (0.9-1.15); Partial Thromboplastin Time 54.9 SEC (24.5-34.5); Prothrombin Time 12.4 sec (9.3-11.8)
[2024-02-26 20:03] LABS: INR 1.19 (0.9-1.15); Prothrombin Time 12.5 sec (9.3-11.8)
[2024-02-26 20:07] LABS: Partial Thromboplastin Time 103.7 SEC (24.5-34.5)
[2024-02-26] MEDS: INSULIN LANTUS (GLARGINE) 1 /0.01ml (100units/ml) SC SCH (22:00)
[2024-02-27] VITALS (107 sets, daily range): BP systolic 63–184; BP diastolic 39–94; PULSE 52–84; RESP 11–29; TEMP 97.2–98.7; O2SAT 87–100
[2024-02-27 03:54] LABS: Basophils # (auto) 0 10 ^3/uL (0-0.2); Basophils % (auto) 0.7 % (0.0-2.0); Eosinophils # (auto) 0.4 10 ^3/uL (0-0.8); Eosinophils % (auto) 5.9 % (0.0-7.0); Hematocrit 31.2 % (41.0-53.0); Lymphocytes % (auto) 27.9 % (10.0-50.0); Mean Corpuscular Hemoglobin 27.8 pg (28.0-32.0); Mean Corpuscular Volume 86.7 fL (80.0-100.0); Monocytes # (auto) 0.5 10 ^3/uL (0-1.3); Monocytes % (auto) 7.2 % (0.0-12.0); Neutrophils # (auto) 4.3 10 ^3/uL (1.6-8.6); Neutrophils % (auto) 58.3 % (37.0-80.0); Nucleated Red Blood Cells % 0.1 %; Platelet Count (auto) 199 10^3/uL (140-450); Red Blood Cells 3.59 10^6/uL (4.5-5.90); Red Cell Distribution Width 17.3 % (11.8-14.3); White Blood Cell 7.3 10^3/uL (4.4-10.8)
[2024-02-27 04:01] LABS: Chloride 104 mmol/L (98-107); Potassium 4.4 mmol/L (3.5-5.1); Sodium 135 mmol/L (136-145)
[2024-02-27 04:02] LABS: Anion Gap 8 (5-15); Carbon Dioxide 23 mmol/L (20-30)
[2024-02-27 04:03] LABS: Calcium 8.6 mg/dL (8.7-10.4)
[2024-02-27 04:07] LABS: BUN/Creatinine Ratio 8.9 (10.0-20.0); Blood Urea Nitrogen 46 mg/dL (9-23)
[2024-02-27 04:08] LABS: Glucose 129 mg/dL (74-106)
[2024-02-27 04:14] LABS: INR 1.17 (0.9-1.15); Prothrombin Time 12.3 sec (9.3-11.8)
[2024-02-27 04:23] LABS: Partial Thromboplastin Time 81.6 SEC (24.5-34.5)
[2024-02-27] MEDS: HEPARIN DRIP/D5W 100UNITS/ML 250 ML IV SCH ×2 (04:45→22:06)
[2024-02-27 07:48] LABS: Base Excess 0.4 mmol/L (-2.0-2.0)
[2024-02-27 14:34] LABS: INR 1.18 (0.9-1.15); Prothrombin Time 12.4 sec (9.3-11.8)
[2024-02-27] MEDS: LIDOCAINE 1% (LOCAL ANESTH.) PF 5ml SDV ID ONE (17:05)
[2024-02-27 20:55] LABS: INR 1.18 (0.9-1.15); Prothrombin Time 12.4 sec (9.3-11.8)
[2024-02-27 20:58] LABS: Partial Thromboplastin Time 98.9 SEC (24.5-34.5)
[2024-02-27] MEDS: SODIUM CHLOR 0.9% PF (SALINE LOCK) 10ML VIAL/SYR IV SCH (21:33)
[2024-02-28] VITALS (107 sets, daily range): BP systolic 89–162; BP diastolic 45–78; PULSE 51–79; RESP 11–22; TEMP 97.7–98.6; O2SAT 94–100
[2024-02-28 04:12] LABS: Basophils # (auto) 0.1 10 ^3/uL (0-0.2); Basophils % (auto) 1.2 % (0.0-2.0); Eosinophils # (auto) 0.3 10 ^3/uL (0-0.8); Eosinophils % (auto) 5.3 % (0.0-7.0); Hematocrit 32.2 % (41.0-53.0); Hemoglobin 10.6 g/dL (13.5-17.5); Lymphocytes # (auto) 1.6 10 ^3/uL (0.4-5.4); Lymphocytes % (auto) 28.1 % (10.0-50.0); Mean Corpuscular Hemoglobin 28.1 pg (28.0-32.0); Mean Corpuscular Hgb Conc. 32.8 g/dL (32.0-36.0); Mean Corpuscular Volume 85.6 fL (80.0-100.0); Monocytes # (auto) 0.5 10 ^3/uL (0-1.3); Monocytes % (auto) 8.4 % (0.0-12.0); Neutrophils # (auto) 3.3 10 ^3/uL (1.6-8.6); Nucleated Red Blood Cells % 0.2 %; Platelet Count (auto) 187 10^3/uL (140-450); Red Blood Cells 3.77 10^6/uL (4.5-5.90); Red Cell Distribution Width 17.3 % (11.8-14.3); White Blood Cell 5.8 10^3/uL (4.4-10.8)
[2024-02-28 04:21] LABS: INR 1.17 (0.9-1.15); Partial Thromboplastin Time 45.6 SEC (24.5-34.5); Prothrombin Time 12.3 sec (9.3-11.8)
[2024-02-28 04:26] LABS: Alanine Aminotransferase 11 U/L (7-40); Albumin 2.4 g/dL (3.2-4.8); Alkaline Phosphatase 175 U/L (46-116); Anion Gap 7 (5-15); Aspartate Aminotransferase 48 U/L (13-40); BUN/Creatinine Ratio 8.7 (10.0-20.0); Bilirubin, Total 0.6 mg/dL (0.2-1.0); Calcium 8.9 mg/dL (8.7-10.4); Carbon Dioxide 26 mmol/L (20-30); Chloride 102 mmol/L (98-107); Glucose 151 mg/dL (74-106); Potassium 4.1 mmol/L (3.5-5.1); Sodium 135 mmol/L (136-145); Total Protein 6.7 g/dL (5.7-8.2)
[2024-02-28 04:27] LABS: Blood Urea Nitrogen 35 mg/dL (9-23)
[2024-02-28] MEDS: HEPARIN DRIP/D5W 100UNITS/ML 250 ML IV SCH ×3 (05:00→18:30)
[2024-02-28 08:24] LABS: Base Excess 2.5 mmol/L (-2.0-2.0)
[2024-02-28] MEDS: FLUCONAZOLE 200MG/100ML 100 ML IV SCH (10:02)
[2024-02-28] MEDS: FLORASTOR (S. BOULARDII) 250 MG CAP PO SCH (10:06)
[2024-02-28 12:07] LABS: INR 1.18 (0.9-1.15); Prothrombin Time 12.4 sec (9.3-11.8)
[2024-02-28 12:16] LABS: Partial Thromboplastin Time > 139.0 SEC (24.5-34.5)
[2024-02-28] MEDS ORDERED: NOREPINEPHRINE 8 MG/250ML KIT 250 ML IV SCH (14:00)
[2024-02-28] MEDS: NOREPINEPHRINE 8 MG/250ML KIT 250 ML IV SCH (15:35)
[2024-02-28 18:13] LABS: INR 1.17 (0.9-1.15); Prothrombin Time 12.3 sec (9.3-11.8)
[2024-02-28 18:17] LABS: Partial Thromboplastin Time > 139.0 SEC (24.5-34.5)
[2024-02-29] VITALS (109 sets, daily range): BP systolic 71–179; BP diastolic 22–86; PULSE 53–83; RESP 8–27; TEMP 97–98.6; O2SAT 95–100
[2024-02-29 01:00] LABS: INR 1.11 (0.9-1.15); Partial Thromboplastin Time 33.2 SEC (24.5-34.5); Prothrombin Time 11.7 sec (9.3-11.8)
[2024-02-29] MEDS: HEPARIN DRIP/D5W 100UNITS/ML 250 ML IV SCH ×2 (01:30→17:30)
[2024-02-29] MEDS: HEPARIN SODIUM (PORCINE) 5000 UNITS/ML 1ML VIAL IV ONE (01:33)
[2024-02-29 03:42] LABS: Basophils # (auto) 0.1 10 ^3/uL (0-0.2); Basophils % (auto) 1.4 % (0.0-2.0); Eosinophils # (auto) 0.4 10 ^3/uL (0-0.8); Eosinophils % (auto) 6.9 % (0.0-7.0); Hematocrit 31.6 % (41.0-53.0); Hemoglobin 10.4 g/dL (13.5-17.5); Lymphocytes # (auto) 1.4 10 ^3/uL (0.4-5.4); Lymphocytes % (auto) 26.4 % (10.0-50.0); Mean Corpuscular Hemoglobin 28.5 pg (28.0-32.0); Mean Corpuscular Hgb Conc. 32.9 g/dL (32.0-36.0); Mean Corpuscular Volume 86.4 fL (80.0-100.0); Monocytes # (auto) 0.3 10 ^3/uL (0-1.3); Monocytes % (auto) 6.2 % (0.0-12.0); Neutrophils # (auto) 3.1 10 ^3/uL (1.6-8.6); Neutrophils % (auto) 59.1 % (37.0-80.0); Platelet Count (auto) 160 10^3/uL (140-450); Red Blood Cells 3.66 10^6/uL (4.5-5.90); Red Cell Distribution Width 17.2 % (11.8-14.3); White Blood Cell 5.2 10^3/uL (4.4-10.8)
[2024-02-29 03:43] LABS: Anion Gap 9 (5-15); Carbon Dioxide 24 mmol/L (20-30); Chloride 101 mmol/L (98-107); Potassium 4.4 mmol/L (3.5-5.1); Sodium 134 mmol/L (136-145)
[2024-02-29 03:49] LABS: BUN/Creatinine Ratio 9.3 (10.0-20.0); Blood Urea Nitrogen 43 mg/dL (9-23); Glucose 173 mg/dL (74-106)
[2024-02-29] MEDS: ALBUMIN 25% 100 ML IV ONE ×2 (07:53)
[2024-02-29 09:48] LABS: INR 1.16 (0.9-1.15); Partial Thromboplastin Time 58.7 SEC (24.5-34.5); Prothrombin Time 12.2 sec (9.3-11.8)
[2024-02-29 16:06] LABS: Base Excess 1.5 mmol/L (-2.0-2.0)
[2024-02-29 16:28] LABS: INR 1.13 (0.9-1.15); Partial Thromboplastin Time 35.7 SEC (24.5-34.5); Prothrombin Time 11.9 sec (9.3-11.8)
[2024-02-29] MEDS: CLOTRIMAZOLE 1 % CREAM 15GM TOP SCH (20:47)
[2024-03-01] VITALS (110 sets, daily range): BP systolic 98–159; BP diastolic 45–107; PULSE 51–80; RESP 11–36; TEMP 97–98.1; O2SAT 92–100
[2024-03-01 00:06] LABS: INR 1.12 (0.9-1.15); Partial Thromboplastin Time 44.8 SEC (24.5-34.5); Prothrombin Time 11.8 sec (9.3-11.8)
[2024-03-01] MEDS: HEPARIN DRIP/D5W 100UNITS/ML 250 ML IV SCH (01:00)
[2024-03-01 04:15] LABS: Basophils # (auto) 0.1 10 ^3/uL (0-0.2); Basophils % (auto) 1.4 % (0.0-2.0); Eosinophils # (auto) 0.4 10 ^3/uL (0-0.8); Eosinophils % (auto) 8.9 % (0.0-7.0); Hematocrit 29.6 % (41.0-53.0); Hemoglobin 9.6 g/dL (13.5-17.5); Lymphocytes # (auto) 1.2 10 ^3/uL (0.4-5.4); Lymphocytes % (auto) 26.6 % (10.0-50.0); Mean Corpuscular Hemoglobin 27.8 pg (28.0-32.0); Mean Corpuscular Hgb Conc. 32.4 g/dL (32.0-36.0); Mean Corpuscular Volume 85.9 fL (80.0-100.0); Monocytes # (auto) 0.3 10 ^3/uL (0-1.3); Monocytes % (auto) 6.8 % (0.0-12.0); Neutrophils # (auto) 2.6 10 ^3/uL (1.6-8.6); Neutrophils % (auto) 56.3 % (37.0-80.0); Nucleated Red Blood Cells % 0.1 %; Platelet Count (auto) 116 10^3/uL (140-450); Red Blood Cells 3.44 10^6/uL (4.5-5.90); Red Cell Distribution Width 17.5 % (11.8-14.3); White Blood Cell 4.6 10^3/uL (4.4-10.8)
[2024-03-01 04:32] LABS: Alkaline Phosphatase 156 U/L (46-116); Anion Gap 8 (5-15); BUN/Creatinine Ratio 8.2 (10.0-20.0); Calcium 9.3 mg/dL (8.7-10.4); Carbon Dioxide 26 mmol/L (20-30); Chloride 101 mmol/L (98-107); Glucose 125 mg/dL (74-106); Sodium 135 mmol/L (136-145)
[2024-03-01 04:33] LABS: Albumin 2.9 g/dL (3.2-4.8); Aspartate Aminotransferase 41 U/L (13-40); Bilirubin, Total 0.5 mg/dL (0.2-1.0); Total Protein 6.7 g/dL (5.7-8.2)
[2024-03-01 04:38] LABS: Blood Urea Nitrogen 32 mg/dL (9-23)
[2024-03-01 04:39] LABS: Alanine Aminotransferase < 9 U/L (7-40)
[2024-03-01 06:54] LABS: Base Excess 2.7 mmol/L (-2.0-2.0)
[2024-03-01 09:57] LABS: INR 1.1 (0.9-1.15); Partial Thromboplastin Time 50.4 SEC (24.5-34.5); Prothrombin Time 11.6 sec (9.3-11.8)
[2024-03-01 10:01] LABS: Hematocrit 34.1 % (41.0-53.0); Hemoglobin 10.9 g/dL (13.5-17.5)
[2024-03-01 15:36] LABS: Hematocrit 30.2 % (41.0-53.0); Hemoglobin 9.3 g/dL (13.5-17.5)
[2024-03-01] MEDS: HEPARIN SODIUM (PORCINE) 5000 UNITS/ML 1ML VIAL IV ONE (17:37)
[2024-03-01] MEDS ORDERED: HEPARIN DRIP/D5W 100UNITS/ML 250 ML IV SCH ×2 (17:45)
[2024-03-01 21:12] LABS: Hematocrit 32.2 % (41.0-53.0); Hemoglobin 10.3 g/dL (13.5-17.5)
[2024-03-02] VITALS (106 sets, daily range): BP systolic 71–155; BP diastolic 39–79; PULSE 53–82; RESP 8–36; TEMP 93.7–98.1; O2SAT 97–100
[2024-03-02 04:37] LABS: Chloride 101 mmol/L (98-107); Potassium 4.2 mmol/L (3.5-5.1); Sodium 135 mmol/L (136-145)
[2024-03-02 04:39] LABS: Calcium 9.4 mg/dL (8.7-10.4)
[2024-03-02 04:43] LABS: Glucose 90 mg/dL (74-106)
[2024-03-02 04:44] LABS: BUN/Creatinine Ratio 8.5 (10.0-20.0); Blood Urea Nitrogen 39 mg/dL (9-23)
[2024-03-02 04:46] LABS: INR 1.12 (0.9-1.15); Prothrombin Time 11.8 sec (9.3-11.8)
[2024-03-02 05:08] LABS: Partial Thromboplastin Time 72.6 SEC (24.5-34.5)
[2024-03-02] MEDS: HEPARIN DRIP/D5W 100UNITS/ML 250 ML IV SCH (05:22)
[2024-03-02 05:23] LABS: Anion Gap 9 (5-15); Carbon Dioxide 25 mmol/L (20-30)
[2024-03-02 06:55] LABS: Basophils # (auto) 0.1 10 ^3/uL (0-0.2); Basophils % (auto) 3.4 % (0.0-2.0); Eosinophils # (auto) 0.4 10 ^3/uL (0-0.8); Eosinophils % (auto) 8.9 % (0.0-7.0); Hematocrit 32.5 % (41.0-53.0); Hemoglobin 10.2 g/dL (13.5-17.5); Lymphocytes # (auto) 1.4 10 ^3/uL (0.4-5.4); Lymphocytes % (auto) 36.6 % (10.0-50.0); Mean Corpuscular Hemoglobin 27.4 pg (28.0-32.0); Mean Corpuscular Hgb Conc. 31.5 g/dL (32.0-36.0); Mean Corpuscular Volume 87.2 fL (80.0-100.0); Monocytes # (auto) 0.3 10 ^3/uL (0-1.3); Monocytes % (auto) 6.7 % (0.0-12.0); Neutrophils # (auto) 1.8 10 ^3/uL (1.6-8.6); Neutrophils % (auto) 44.4 % (37.0-80.0); Nucleated Red Blood Cells % 0.3 %; Platelet Count (auto) 109 10^3/uL (140-450); Red Blood Cells 3.73 10^6/uL (4.5-5.90); Red Cell Distribution Width 17.2 % (11.8-14.3); White Blood Cell 3.9 10^3/uL (4.4-10.8)
[2024-03-02 07:21] LABS: Base Excess 0.8 mmol/L (-2.0-2.0)
[2024-03-02 10:33] LABS: INR 1.09 (0.9-1.15); Prothrombin Time 11.5 sec (9.3-11.8)
[2024-03-02 17:15] LABS: INR 1.12 (0.9-1.15); Partial Thromboplastin Time 51.1 SEC (24.5-34.5); Prothrombin Time 11.8 sec (9.3-11.8)
[2024-03-03] VITALS (109 sets, daily range): BP systolic 67–154; BP diastolic 34–87; PULSE 56–84; RESP 7–27; TEMP 97.2–98.2; O2SAT 92–100
[2024-03-03 03:33] LABS: Basophils # (auto) 0.1 10 ^3/uL (0-0.2); Basophils % (auto) 2.8 % (0.0-2.0); Eosinophils # (auto) 0.3 10 ^3/uL (0-0.8); Eosinophils % (auto) 8.4 % (0.0-7.0); Hematocrit 28.4 % (41.0-53.0); Hemoglobin 9.4 g/dL (13.5-17.5); Lymphocytes # (auto) 1.2 10 ^3/uL (0.4-5.4); Mean Corpuscular Hgb Conc. 32.9 g/dL (32.0-36.0); Mean Corpuscular Volume 85.2 fL (80.0-100.0); Monocytes # (auto) 0.2 10 ^3/uL (0-1.3); Monocytes % (auto) 5.4 % (0.0-12.0); Neutrophils # (auto) 1.5 10 ^3/uL (1.6-8.6); Neutrophils % (auto) 46.4 % (37.0-80.0); Nucleated Red Blood Cells % 0.1 %; Platelet Count (auto) 112 10^3/uL (140-450); Red Blood Cells 3.34 10^6/uL (4.5-5.90); Red Cell Distribution Width 17.2 % (11.8-14.3); White Blood Cell 3.3 10^3/uL (4.4-10.8)
[2024-03-03 03:50] LABS: Albumin 2.8 g/dL (3.2-4.8); Alkaline Phosphatase 149 U/L (46-116); Anion Gap 8 (5-15); Aspartate Aminotransferase 66 U/L (13-40); BUN/Creatinine Ratio 8.8 (10.0-20.0); Blood Urea Nitrogen 45 mg/dL (9-23); Calcium 9.3 mg/dL (8.7-10.4); Carbon Dioxide 25 mmol/L (20-30); Chloride 99 mmol/L (98-107); Glucose 98 mg/dL (74-106); Potassium 4.3 mmol/L (3.5-5.1); Sodium 132 mmol/L (136-145)
[2024-03-03 03:51] LABS: Bilirubin, Total 0.4 mg/dL (0.2-1.0)
[2024-03-03 03:53] LABS: INR 1.15 (0.9-1.15); Prothrombin Time 12.1 sec (9.3-11.8)
[2024-03-03 04:01] LABS: Alanine Aminotransferase < 9 U/L (7-40)
[2024-03-03 04:03] LABS: Partial Thromboplastin Time 77.7 SEC (24.5-34.5)
[2024-03-03 04:11] LABS: Total Protein 6.6 g/dL (5.7-8.2)
[2024-03-03 06:38] LABS: Base Excess 0.9 mmol/L (-2.0-3.0)
[2024-03-03 11:27] LABS: INR 1.13 (0.9-1.15); Partial Thromboplastin Time 61.8 SEC (24.5-34.5); Prothrombin Time 11.9 sec (9.3-11.8)
[2024-03-03] MEDS: HEPARIN DRIP/D5W 100UNITS/ML 250 ML IV SCH (13:12)
[2024-03-03] MEDS: SODIUM CHL 0.9% 1000 ML BAG XX ONE (13:15)
[2024-03-03 17:15] LABS: INR 1.14 (0.9-1.15); Partial Thromboplastin Time 67.2 SEC (24.5-34.5)
[2024-03-03] MEDS: EPOETIN ALFA-EPBX 10,000 UNIT/1ML VIAL SC ONE (20:47)
[2024-03-03 23:15] LABS: INR 1.15 (0.9-1.15); Partial Thromboplastin Time 69.1 SEC (24.5-34.5); Prothrombin Time 12.1 sec (9.3-11.8)
[2024-03-04] VITALS (102 sets, daily range): BP systolic 89–149; BP diastolic 32–103; PULSE 53–104; RESP 6–29; TEMP 96.8–98.2; O2SAT 76–100
[2024-03-04 08:00] LABS: Base Excess 3.3 mmol/L (-2.0-3.0)
[2024-03-04 11:51] LABS: Basophils # (auto) 0.1 10 ^3/uL (0-0.2); Basophils % (auto) 2.4 % (0.0-2.0); Eosinophils # (auto) 0.2 10 ^3/uL (0-0.8); Eosinophils % (auto) 7.4 % (0.0-7.0); Hematocrit 28.3 % (41.0-53.0); Hemoglobin 9.5 g/dL (13.5-17.5); Lymphocytes # (auto) 1.1 10 ^3/uL (0.4-5.4); Lymphocytes % (auto) 38.5 % (10.0-50.0); Mean Corpuscular Hemoglobin 28.3 pg (28.0-32.0); Mean Corpuscular Hgb Conc. 33.5 g/dL (32.0-36.0); Mean Corpuscular Volume 84.4 fL (80.0-100.0); Monocytes # (auto) 0.2 10 ^3/uL (0-1.3); Monocytes % (auto) 6.8 % (0.0-12.0); Neutrophils # (auto) 1.2 10 ^3/uL (1.6-8.6); Neutrophils % (auto) 44.9 % (37.0-80.0); Platelet Count (auto) 82 10^3/uL (140-450); Red Blood Cells 3.35 10^6/uL (4.5-5.90); White Blood Cell 2.8 10^3/uL (4.4-10.8)
[2024-03-04 12:00] LABS: Chloride 101 mmol/L (98-107); Potassium 3.9 mmol/L (3.5-5.1); Sodium 135 mmol/L (136-145)
[2024-03-04 12:01] LABS: Anion Gap 6 (5-15); Calcium 9.1 mg/dL (8.7-10.4); Carbon Dioxide 28 mmol/L (20-30)
[2024-03-04 12:06] LABS: BUN/Creatinine Ratio 7.2 (10.0-20.0); Glucose 94 mg/dL (74-106)
[2024-03-04 12:10] LABS: INR 1.15 (0.9-1.15); Partial Thromboplastin Time 50.8 SEC (24.5-34.5); Prothrombin Time 12.1 sec (9.3-11.8)
[2024-03-04 12:11] LABS: Blood Urea Nitrogen 30 mg/dL (9-23)
[2024-03-04] MEDS: ALBUMIN 25% 100 ML IV ONE (16:23)
[2024-03-05] VITALS (105 sets, daily range): BP systolic 80–142; BP diastolic 46–97; PULSE 56–94; RESP 14–20; TEMP 96.6–98.6; O2SAT 88–100
[2024-03-05 04:00] LABS: Basophils # (auto) 0.1 10 ^3/uL (0-0.2); Basophils % (auto) 2.1 % (0.0-2.0); Eosinophils # (auto) 0.2 10 ^3/uL (0-0.8); Eosinophils % (auto) 9.1 % (0.0-7.0); Hematocrit 26.2 % (41.0-53.0); Hemoglobin 8.6 g/dL (13.5-17.5); Lymphocytes % (auto) 37.6 % (10.0-50.0); Mean Corpuscular Hemoglobin 27.8 pg (28.0-32.0); Mean Corpuscular Hgb Conc. 32.7 g/dL (32.0-36.0); Mean Corpuscular Volume 84.9 fL (80.0-100.0); Monocytes # (auto) 0.2 10 ^3/uL (0-1.3); Neutrophils # (auto) 1.2 10 ^3/uL (1.6-8.6); Neutrophils % (auto) 45.2 % (37.0-80.0); Nucleated Red Blood Cells % 0.2 %; Platelet Count (auto) 72 10^3/uL (140-450); Red Blood Cells 3.08 10^6/uL (4.5-5.90); Red Cell Distribution Width 16.8 % (11.8-14.3); White Blood Cell 2.7 10^3/uL (4.4-10.8)
[2024-03-05 04:04] LABS: Chloride 100 mmol/L (98-107); Sodium 136 mmol/L (136-145)
[2024-03-05 04:05] LABS: Anion Gap 10 (5-15); Calcium 9.2 mg/dL (8.7-10.4); Carbon Dioxide 26 mmol/L (20-30)
[2024-03-05 04:10] LABS: BUN/Creatinine Ratio 7.2 (10.0-20.0); Blood Urea Nitrogen 34 mg/dL (9-23); Glucose 97 mg/dL (74-106)
[2024-03-05] MEDS: ALBUMIN 25% 100 ML IV ONE ×2 (07:00)
[2024-03-05] MEDS: SODIUM CHL 0.9% 1000 ML BAG XX ONE (09:00)
[2024-03-05 11:57] LABS: Base Excess 3.1 mmol/L (-2.0-3.0)
[2024-03-05] MEDS: EPOETIN ALFA-EPBX 10,000 UNIT/1ML VIAL SC ONE (21:32)
[2024-03-05] MEDS: DAPTOmycin 600 MG in SODIUM CHL 0.9% 50 ML IV SCH (22:17)
[2024-03-06] VITALS (106 sets, daily range): BP systolic 77–149; BP diastolic 38–89; PULSE 56–97; RESP 7–21; TEMP 90.5–98.6; O2SAT 93–100
[2024-03-06 03:58] LABS: Basophils # (auto) 0.1 10 ^3/uL (0-0.2); Basophils % (auto) 1.9 % (0.0-2.0); Eosinophils # (auto) 0.3 10 ^3/uL (0-0.8); Eosinophils % (auto) 8.4 % (0.0-7.0); Hematocrit 26.9 % (41.0-53.0); Hemoglobin 8.8 g/dL (13.5-17.5); Lymphocytes # (auto) 1.2 10 ^3/uL (0.4-5.4); Mean Corpuscular Hemoglobin 27.6 pg (28.0-32.0); Mean Corpuscular Hgb Conc. 32.7 g/dL (32.0-36.0); Mean Corpuscular Volume 84.5 fL (80.0-100.0); Monocytes # (auto) 0.2 10 ^3/uL (0-1.3); Monocytes % (auto) 5.6 % (0.0-12.0); Neutrophils # (auto) 1.5 10 ^3/uL (1.6-8.6); Neutrophils % (auto) 46.1 % (37.0-80.0); Nucleated Red Blood Cells % 0.1 %; Platelet Count (auto) 48 10^3/uL (140-450); Red Blood Cells 3.18 10^6/uL (4.5-5.90); Red Cell Distribution Width 16.8 % (11.8-14.3); White Blood Cell 3.2 10^3/uL (4.4-10.8)
[2024-03-06 04:17] LABS: Albumin 3.3 g/dL (3.2-4.8); Alkaline Phosphatase 128 U/L (46-116); Anion Gap 9 (5-15); Aspartate Aminotransferase 63 U/L (13-40); BUN/Creatinine Ratio 6.4 (10.0-20.0); Bilirubin, Total 0.4 mg/dL (0.2-1.0); Blood Urea Nitrogen 25 mg/dL (9-23); Calcium 9.5 mg/dL (8.7-10.4); Carbon Dioxide 27 mmol/L (20-30); Chloride 102 mmol/L (98-107); Glucose 100 mg/dL (74-106); Potassium 3.9 mmol/L (3.5-5.1); Sodium 138 mmol/L (136-145); Total Protein 6.9 g/dL (5.7-8.2)
[2024-03-06 04:44] LABS: Alanine Aminotransferase < 9 U/L (7-40)
[2024-03-06 05:09] LABS: Platelet Estimate Decrea
[2024-03-06 06:33] LABS: Base Excess 0.3 mmol/L (-2.0-3.0)
[2024-03-06] MEDS ORDERED: DAPTOmycin 1,000 MG in SODIUM CHL 0.9% 50 ML IV SCH (22:00)
[2024-03-07] VITALS (110 sets, daily range): BP systolic 86–156; BP diastolic 45–98; PULSE 60–104; RESP 11–19; TEMP 97.7–98.8; O2SAT 92–100
[2024-03-07 04:18] LABS: Basophils # (auto) 0.1 10 ^3/uL (0-0.2); Eosinophils # (auto) 0.3 10 ^3/uL (0-0.8); Hemoglobin 8.6 g/dL (13.5-17.5); Monocytes # (auto) 0.2 10 ^3/uL (0-1.3); Neutrophils # (auto) 1.5 10 ^3/uL (1.6-8.6); Neutrophils % (auto) 42.7 % (37.0-80.0)
[2024-03-07 04:21] LABS: Eosinophils % (auto) 7.8 % (0.0-7.0); Lymphocytes # (auto) 1.4 10 ^3/uL (0.4-5.4); Lymphocytes % (auto) 41.3 % (10.0-50.0); Mean Corpuscular Hemoglobin 28.1 pg (28.0-32.0); Mean Corpuscular Hgb Conc. 33.1 g/dL (32.0-36.0); Mean Corpuscular Volume 84.7 fL (80.0-100.0); Monocytes % (auto) 6.2 % (0.0-12.0); Nucleated Red Blood Cells % 0.2 %; Platelet Count (auto) 58 10^3/uL (140-450); Red Blood Cells 3.07 10^6/uL (4.5-5.90); Red Cell Distribution Width 16.9 % (11.8-14.3); White Blood Cell 3.4 10^3/uL (4.4-10.8)
[2024-03-07 04:33] LABS: Alkaline Phosphatase 124 U/L (46-116); Anion Gap 9 (5-15); Aspartate Aminotransferase 57 U/L (13-40); BUN/Creatinine Ratio 6.6 (10.0-20.0); Blood Urea Nitrogen 32 mg/dL (9-23); Calcium 9.6 mg/dL (8.7-10.4); Carbon Dioxide 26 mmol/L (20-30); Chloride 103 mmol/L (98-107); Glucose 103 mg/dL (74-106); Potassium 3.9 mmol/L (3.5-5.1); Sodium 138 mmol/L (136-145)
[2024-03-07 04:34] LABS: Bilirubin, Total 0.4 mg/dL (0.2-1.0); Total Protein 6.7 g/dL (5.7-8.2)
[2024-03-07 04:41] LABS: Alanine Aminotransferase < 9 U/L (7-40)
[2024-03-07] MEDS: SODIUM CHL 0.9% 1000 ML BAG XX ONE (08:43)
[2024-03-07] MEDS: ALBUMIN 25% 100 ML IV ONE ×2 (09:18→12:50)
[2024-03-07] MEDS: DAPTOmycin 600 MG in SODIUM CHL 0.9% 50 ML IV SCH (21:16)
[2024-03-07] MEDS: EPOETIN ALFA-EPBX 10,000 UNIT/1ML VIAL SC ONE (21:16)
[2024-03-08] VITALS (112 sets, daily range): BP systolic 72–177; BP diastolic 37–103; PULSE 55–101; RESP 9–35; TEMP 96.8–99.3; O2SAT 86–100
[2024-03-08 03:52] LABS: Basophils # (auto) 0.1 10 ^3/uL (0-0.2); Eosinophils # (auto) 0.3 10 ^3/uL (0-0.8); Monocytes # (auto) 0.3 10 ^3/uL (0-1.3); Platelet Count (auto) 61 10^3/uL (140-450)
[2024-03-08 03:54] LABS: Basophils % (auto) 1.4 % (0.0-2.0); Eosinophils % (auto) 6.3 % (0.0-7.0); Hematocrit 29.2 % (41.0-53.0); Hemoglobin 9.1 g/dL (13.5-17.5); Lymphocytes # (auto) 1.5 10 ^3/uL (0.4-5.4); Lymphocytes % (auto) 33.5 % (10.0-50.0); Mean Corpuscular Hemoglobin 27.3 pg (28.0-32.0); Mean Corpuscular Hgb Conc. 31.3 g/dL (32.0-36.0); Mean Corpuscular Volume 87.2 fL (80.0-100.0); Monocytes % (auto) 7.3 % (0.0-12.0); Neutrophils # (auto) 2.3 10 ^3/uL (1.6-8.6); Neutrophils % (auto) 51.5 % (37.0-80.0); Nucleated Red Blood Cells % 0.2 %; Red Blood Cells 3.35 10^6/uL (4.5-5.90); Red Cell Distribution Width 17.1 % (11.8-14.3); White Blood Cell 4.4 10^3/uL (4.4-10.8)
[2024-03-08 07:02] LABS: Base Excess 3.8 mmol/L (-2.0-3.0)
[2024-03-08 07:16] LABS: Albumin 3.5 g/dL (3.2-4.8); Alkaline Phosphatase 137 U/L (46-116); Anion Gap 7 (5-15); Aspartate Aminotransferase 59 U/L (13-40); BUN/Creatinine Ratio 5.1 (10.0-20.0); Bilirubin, Total 0.5 mg/dL (0.2-1.0); Blood Urea Nitrogen 20 mg/dL (9-23); Calcium 10.1 mg/dL (8.7-10.4); Carbon Dioxide 28 mmol/L (20-30); Chloride 104 mmol/L (98-107); Glucose 137 mg/dL (74-106); Potassium 3.8 mmol/L (3.5-5.1); Sodium 139 mmol/L (136-145)
[2024-03-08 07:17] LABS: Total Protein 7.5 g/dL (5.7-8.2)
[2024-03-08 07:18] LABS: Alanine Aminotransferase < 9 U/L (7-40)
[2024-03-08] MEDS ORDERED: PANTOPRAZOLE 40 MG/10 ML VIAL INJ IV SCH (10:00)
[2024-03-09] VITALS (98 sets, daily range): BP systolic 70–160; BP diastolic 38–96; PULSE 60–98; RESP 9–29; TEMP 97.2–99; O2SAT 87–100
[2024-03-09 04:17] LABS: Basophils # (auto) 0.1 10 ^3/uL (0-0.2); Eosinophils # (auto) 0.3 10 ^3/uL (0-0.8); Red Blood Cells 2.95 10^6/uL (4.5-5.90)
[2024-03-09 04:18] LABS: Albumin 3.3 g/dL (3.2-4.8); Alkaline Phosphatase 121 U/L (46-116); Anion Gap 4 (5-15); Aspartate Aminotransferase 46 U/L (13-40); BUN/Creatinine Ratio 6.2 (10.0-20.0); Calcium 9.7 mg/dL (8.7-10.4); Carbon Dioxide 30 mmol/L (20-30); Chloride 106 mmol/L (98-107); Glucose 123 mg/dL (74-106); Potassium 3.6 mmol/L (3.5-5.1); Sodium 140 mmol/L (136-145)
[2024-03-09 04:19] LABS: Bilirubin, Total 0.4 mg/dL (0.2-1.0); Total Protein 7.1 g/dL (5.7-8.2)
[2024-03-09 04:20] LABS: Basophils % (auto) 1.8 % (0.0-2.0); Hematocrit 25.1 % (41.0-53.0); Hemoglobin 8.3 g/dL (13.5-17.5); Lymphocytes # (auto) 1.2 10 ^3/uL (0.4-5.4); Lymphocytes % (auto) 32.6 % (10.0-50.0); Mean Corpuscular Hgb Conc. 32.8 g/dL (32.0-36.0); Mean Corpuscular Volume 85.2 fL (80.0-100.0); Monocytes # (auto) 0.3 10 ^3/uL (0-1.3); Monocytes % (auto) 9.6 % (0.0-12.0); Neutrophils # (auto) 1.8 10 ^3/uL (1.6-8.6); Platelet Count (auto) 68 10^3/uL (140-450); Red Cell Distribution Width 16.4 % (11.8-14.3); White Blood Cell 3.6 10^3/uL (4.4-10.8)
[2024-03-09 04:23] LABS: Alanine Aminotransferase < 9 U/L (7-40); Blood Urea Nitrogen 30 mg/dL (9-23)
[2024-03-09] MEDS: SODIUM CHL 0.9% 1000 ML BAG XX ONE (06:35)
[2024-03-09] MEDS: ALBUMIN 25% 100 ML IV PRN (08:58)
[2024-03-09 12:06] LABS: Base Excess 6.5 mmol/L (-2.0-3.0)
[2024-03-09] MEDS: EPOETIN ALFA-EPBX 10,000 UNIT/1ML VIAL SC ONE (22:04)
[2024-03-10] VITALS (108 sets, daily range): BP systolic 78–184; BP diastolic 43–91; PULSE 58–103; RESP 10–21; TEMP 98.1–99.1; O2SAT 88–100
[2024-03-10 04:36] LABS: Basophils # (auto) 0.1 10 ^3/uL (0-0.2); Basophils % (auto) 1.2 % (0.0-2.0); Eosinophils # (auto) 0.3 10 ^3/uL (0-0.8); Eosinophils % (auto) 5.9 % (0.0-7.0); Hematocrit 26.1 % (41.0-53.0); Hemoglobin 8.6 g/dL (13.5-17.5); Lymphocytes # (auto) 1.7 10 ^3/uL (0.4-5.4); Lymphocytes % (auto) 36.4 % (10.0-50.0); Mean Corpuscular Volume 84.9 fL (80.0-100.0); Monocytes # (auto) 0.6 10 ^3/uL (0-1.3); Monocytes % (auto) 12.5 % (0.0-12.0); Nucleated Red Blood Cells % 0.1 %; Platelet Count (auto) 82 10^3/uL (140-450); Red Blood Cells 3.07 10^6/uL (4.5-5.90); Red Cell Distribution Width 16.4 % (11.8-14.3); White Blood Cell 4.6 10^3/uL (4.4-10.8)
[2024-03-10 04:55] LABS: Albumin 3.5 g/dL (3.2-4.8); Alkaline Phosphatase 115 U/L (46-116); Anion Gap 6 (5-15); Aspartate Aminotransferase 51 U/L (13-40); BUN/Creatinine Ratio 4.9 (10.0-20.0); Bilirubin, Total 0.6 mg/dL (0.2-1.0); Blood Urea Nitrogen 19 mg/dL (9-23); Calcium 9.5 mg/dL (8.7-10.4); Carbon Dioxide 30 mmol/L (20-30); Chloride 104 mmol/L (98-107); Glucose 92 mg/dL (74-106); Sodium 140 mmol/L (136-145); Total Protein 7.3 g/dL (5.7-8.2)
[2024-03-10 05:02] LABS: Alanine Aminotransferase < 9 U/L (7-40)
[2024-03-10] MEDS: POTASSIUM CHL 20MEQ/100ML 100 ML IV SCH (08:50)
[2024-03-10] MEDS ORDERED: POTASSIUM CHL 20MEQ/100ML 100 ML IV SCH (09:15)
[2024-03-10 09:56] LABS: Base Excess 6.1 mmol/L (-2.0-3.0)
[2024-03-11] VITALS (106 sets, daily range): BP systolic 66–153; BP diastolic 37–103; PULSE 63–132; RESP 10–36; TEMP 96.8–100.2; O2SAT 93–100
[2024-03-11 04:32] LABS: Calcium 9.9 mg/dL (8.7-10.4); Chloride 105 mmol/L (98-107); Potassium 3.5 mmol/L (3.5-5.1); Sodium 140 mmol/L (136-145)
[2024-03-11 04:33] LABS: Anion Gap 10 (5-15); Carbon Dioxide 25 mmol/L (20-30)
[2024-03-11 04:37] LABS: Hematocrit 28.6 % (41.0-53.0); Hemoglobin 9.3 g/dL (13.5-17.5); Mean Corpuscular Hemoglobin 27.4 pg (28.0-32.0); Mean Corpuscular Hgb Conc. 32.3 g/dL (32.0-36.0); Mean Corpuscular Volume 84.8 fL (80.0-100.0); Platelet Count (auto) 89 10^3/uL (140-450); Red Blood Cells 3.38 10^6/uL (4.5-5.90); Red Cell Distribution Width 16.8 % (11.8-14.3); White Blood Cell 8.4 10^3/uL (4.4-10.8)
[2024-03-11 04:38] LABS: BUN/Creatinine Ratio 4.4 (10.0-20.0); Blood Urea Nitrogen 21 mg/dL (9-23); Glucose 102 mg/dL (74-106)
[2024-03-11 04:45] LABS: Band Neutrophils % (manual) 0; Basophils % (manual) 0 (0.0-2.0); Blast Cells 0; Metamyelocytes % 0; Myelocytes % 0; Promyelocytes % 0; Reactive Lymphocytes 0
[2024-03-11 06:42] LABS: Eosinophils % (manual) 8 (0-7); Lymphocytes % (manual) 35 (10.0-50.0); Monocytes % (manual) 13 (0-12)
[2024-03-11 06:43] LABS: Stomatocytes Moderate
[2024-03-11 06:45] LABS: Anisocytosis Slight; Platelet Estimate Decreased
[2024-03-11] MEDS: SODIUM CHL 0.9% 1000 ML BAG XX ONE (07:00)
[2024-03-11] MEDS: EPOETIN ALFA-EPBX 10,000 UNIT/1ML VIAL SC ONE (22:03)
[2024-03-12] VITALS (119 sets, daily range): BP systolic 74–152; BP diastolic 39–104; PULSE 67–116; RESP 12–39; TEMP 98.2–100; O2SAT 94–100
[2024-03-12 04:14] LABS: Hematocrit 28.8 % (41.0-53.0); Hemoglobin 9.5 g/dL (13.5-17.5); Mean Corpuscular Volume 84.8 fL (80.0-100.0); Platelet Count (auto) 172 10^3/uL (140-450); Red Cell Distribution Width 16.7 % (11.8-14.3); White Blood Cell 6.4 10^3/uL (4.4-10.8)
[2024-03-12 04:30] LABS: Alanine Aminotransferase 11 U/L (7-40); Albumin 3.9 g/dL (3.2-4.8); Alkaline Phosphatase 131 U/L (46-116); Anion Gap 11 (5-15); Aspartate Aminotransferase 51 U/L (13-40); BUN/Creatinine Ratio 3.9 (10.0-20.0); Bilirubin, Total 0.8 mg/dL (0.2-1.0); Blood Urea Nitrogen 18 mg/dL (9-23); Calcium 10.3 mg/dL (8.7-10.4); Carbon Dioxide 27 mmol/L (20-30); Chloride 101 mmol/L (98-107); Glucose 108 mg/dL (74-106); Potassium 3.1 mmol/L (3.5-5.1); Sodium 139 mmol/L (136-145); Total Protein 8.2 g/dL (5.7-8.2)
[2024-03-12 04:40] LABS: Basophils % (manual) 0 (0.0-2.0); Blast Cells 0; Metamyelocytes % 0; Myelocytes % 0; Promyelocytes % 0; Reactive Lymphocytes 0
[2024-03-12 06:06] LABS: Anisocytosis Slight; Band Neutrophils % (manual) 3; Eosinophils % (manual) 5 (0-7); Large Platelets FEW; Lymphocytes % (manual) 23 (10.0-50.0); Monocytes % (manual) 11 (0-12); Platelet Estimate Adequate; Stomatocytes Few
[2024-03-12] MEDS: POTASSIUM CHL 20MEQ/100ML 100 ML IV ONE (07:13)
[2024-03-12 09:10] LABS: Base Excess 2.1 mmol/L (-2.0-3.0)
[2024-03-12] MEDS: POTASSIUM CHL 20MEQ/100ML 100 ML IV SCH ×2 (10:41→18:15)
[2024-03-12] MEDS: ALBUTEROL SULF 2.5 MG/0.5ML(0.5%) NEB SOLN NEB ONE (12:24)
[2024-03-12 14:08] LABS: Base Excess 2.4 mmol/L (-2.0-3.0)
[2024-03-12] MEDS: MEROPENEM 1GM IVPB 50 ML IV ONE (17:04)
[2024-03-12] MEDS: HEPARIN 1,000 UNITS/ml 1ML VIAL IV ONE (18:00)
[2024-03-12] MEDS: HEPARIN 1,000 UNITS/ml 1ML VIAL ONE (18:26)
[2024-03-12] MEDS: MEROPENEM 500MG IVPB 50 ML IV SCH (19:21)
[2024-03-12] MEDS: HEPARIN SODIUM (PORCINE) 5000 UNITS/ML 1ML VIAL SC SCH (21:43)
[2024-03-12] MEDS ORDERED: MEROPENEM 1GM IVPB 50 ML IV SCH (22:00)
[2024-03-13] VITALS (111 sets, daily range): BP systolic 70–144; BP diastolic 10–99; PULSE 54–145; RESP 11–37; TEMP 98.3–98.9; O2SAT 92–100
[2024-03-13 04:05] LABS: Basophils # (auto) 0.1 10 ^3/uL (0-0.2); Eosinophils # (auto) 0.4 10 ^3/uL (0-0.8); Hemoglobin 11.6 g/dL (13.5-17.5)
[2024-03-13 04:09] LABS: Basophils % (auto) 0.8 % (0.0-2.0); Eosinophils % (auto) 5.7 % (0.0-7.0); Hematocrit 36.5 % (41.0-53.0); Lymphocytes # (auto) 1.6 10 ^3/uL (0.4-5.4); Lymphocytes % (auto) 21.8 % (10.0-50.0); Mean Corpuscular Hgb Conc. 31.7 g/dL (32.0-36.0); Mean Corpuscular Volume 88.4 fL (80.0-100.0); Monocytes # (auto) 1.3 10 ^3/uL (0-1.3); Monocytes % (auto) 17.6 % (0.0-12.0); Neutrophils # (auto) 3.9 10 ^3/uL (1.6-8.6); Neutrophils % (auto) 54.1 % (37.0-80.0); Nucleated Red Blood Cells % 1.2 %; Platelet Count (auto) 110 10^3/uL (140-450); Red Blood Cells 4.13 10^6/uL (4.5-5.90); White Blood Cell 7.3 10^3/uL (4.4-10.8)
[2024-03-13 04:33] LABS: Alanine Aminotransferase 11 U/L (7-40); Albumin 4.2 g/dL (3.2-4.8); Alkaline Phosphatase 138 U/L (46-116); Anion Gap 10 (5-15); Aspartate Aminotransferase 63 U/L (13-40); BUN/Creatinine Ratio 3.2 (10.0-20.0); Bilirubin, Total 0.7 mg/dL (0.2-1.0); Blood Urea Nitrogen 19 mg/dL (9-23); Calcium 10.3 mg/dL (8.7-10.4); Carbon Dioxide 26 mmol/L (20-30); Chloride 103 mmol/L (98-107); Glucose 135 mg/dL (74-106); Potassium 4.3 mmol/L (3.5-5.1); Sodium 139 mmol/L (136-145); Total Protein 8.8 g/dL (5.7-8.2)
[2024-03-13] MEDS: SODIUM CHL 0.9% 1000 ML BAG XX ONE (07:00)
[2024-03-13 07:49] LABS: Base Excess 0.8 mmol/L (-2.0-3.0)
[2024-03-13 12:55] LABS: INR 1.18 (0.9-1.15); Partial Thromboplastin Time 26.5 SEC (24.5-34.5); Prothrombin Time 12.4 sec (9.3-11.8)
[2024-03-13] MEDS: MORPHINE SULFATE INJ 2 MG/ml SYRG ONE (17:00)
[2024-03-13] MEDS: MORPHINE SULFATE INJ 2 MG/ml SYRG IV ONE (17:00)
[2024-03-13] MEDS: EPOETIN ALFA-EPBX 10,000 UNIT/1ML VIAL SC ONE (21:13)
[2024-03-14] VITALS (103 sets, daily range): BP systolic 79–137; BP diastolic 36–105; PULSE 79–118; RESP 11–34; TEMP 98.3–99.1; O2SAT 75–100
[2024-03-14 04:10] LABS: Basophils # (auto) 0.1 10 ^3/uL (0-0.2); Basophils % (auto) 1.9 % (0.0-2.0); Eosinophils # (auto) 0.4 10 ^3/uL (0-0.8); Eosinophils % (auto) 6.4 % (0.0-7.0); Hemoglobin 10.9 g/dL (13.5-17.5); Lymphocytes # (auto) 1.4 10 ^3/uL (0.4-5.4); Lymphocytes % (auto) 23.4 % (10.0-50.0); Mean Corpuscular Hemoglobin 28.1 pg (28.0-32.0); Monocytes # (auto) 0.9 10 ^3/uL (0-1.3); Neutrophils # (auto) 3.2 10 ^3/uL (1.6-8.6); Neutrophils % (auto) 53.3 % (37.0-80.0); Nucleated Red Blood Cells % 0.6 %; Platelet Count (auto) 298 10^3/uL (140-450); Red Blood Cells 3.86 10^6/uL (4.5-5.90); Red Cell Distribution Width 17.7 % (11.8-14.3); White Blood Cell 6.1 10^3/uL (4.4-10.8)
[2024-03-14 04:33] LABS: Anion Gap 11 (5-15); Carbon Dioxide 26 mmol/L (20-30); Chloride 101 mmol/L (98-107); Potassium 3.3 mmol/L (3.5-5.1); Sodium 138 mmol/L (136-145)
[2024-03-14 04:39] LABS: BUN/Creatinine Ratio 3.2 (10.0-20.0); Blood Urea Nitrogen 14 mg/dL (9-23); Glucose 143 mg/dL (74-106)
[2024-03-14] MEDS: POTASSIUM CHL 20MEQ/100ML 100 ML IV ONE (06:30)
[2024-03-14] MEDS: POTASSIUM CHL 20MEQ/100ML 100 ML IV SCH (10:52)
[2024-03-15] VITALS (97 sets, daily range): BP systolic 80–126; BP diastolic 40–93; PULSE 83–130; RESP 11–36; TEMP 97.5–99; O2SAT 88–100
[2024-03-15 04:15] LABS: Basophils # (auto) 0.1 10 ^3/uL (0-0.2); Basophils % (auto) 1.2 % (0.0-2.0); Chloride 102 mmol/L (98-107); Eosinophils # (auto) 0.5 10 ^3/uL (0-0.8); Eosinophils % (auto) 6.3 % (0.0-7.0); Hematocrit 30.3 % (41.0-53.0); Hemoglobin 9.8 g/dL (13.5-17.5); Lymphocytes # (auto) 2.2 10 ^3/uL (0.4-5.4); Mean Corpuscular Hemoglobin 28.2 pg (28.0-32.0); Mean Corpuscular Hgb Conc. 32.2 g/dL (32.0-36.0); Mean Corpuscular Volume 87.6 fL (80.0-100.0); Monocytes # (auto) 1.1 10 ^3/uL (0-1.3); Neutrophils # (auto) 3.7 10 ^3/uL (1.6-8.6); Neutrophils % (auto) 48.5 % (37.0-80.0); Nucleated Red Blood Cells % 0.5 %; Platelet Count (auto) 363 10^3/uL (140-450); Potassium 4.1 mmol/L (3.5-5.1); Red Blood Cells 3.46 10^6/uL (4.5-5.90); Red Cell Distribution Width 17.8 % (11.8-14.3); Sodium 139 mmol/L (136-145); White Blood Cell 7.6 10^3/uL (4.4-10.8)
[2024-03-15 04:16] LABS: Anion Gap 9 (5-15); Calcium 10.1 mg/dL (8.7-10.4); Carbon Dioxide 28 mmol/L (20-30)
[2024-03-15 04:21] LABS: BUN/Creatinine Ratio 3.7 (10.0-20.0); Blood Urea Nitrogen 21 mg/dL (9-23); Glucose 161 mg/dL (74-106)
[2024-03-15 04:23] LABS: Creatine Kinase IFCC < 15 U/L (46-171)
[2024-03-15 20:04] LABS: Urine Bacteria None Seen /hpf (None Seen)
[2024-03-15 20:25] LABS: Urine Blood Negative /uL (Negative); Urine Clarity Clear (Clear); Urine Color Yellow (Yellow); Urine Mucus FEW (None Seen); Urine Protein, UAD Negative (Negative); Urine Specific Gravity 1.007 (1.001-1.035); Urine Urobilinogen Normal (Negative); Urine WBC 2 /hpf (0 - 3); Urine pH 5.5 (5.0-9.0)
[2024-03-16] VITALS (96 sets, daily range): BP systolic 76–143; BP diastolic 31–90; PULSE 76–105; RESP 10–25; TEMP 97.6–98.7; O2SAT 78–100
[2024-03-16 04:07] LABS: Basophils # (auto) 0.2 10 ^3/uL (0-0.2); Basophils % (auto) 3.2 % (0.0-2.0); Eosinophils # (auto) 0.6 10 ^3/uL (0-0.8); Eosinophils % (auto) 8.2 % (0.0-7.0); Hematocrit 28.5 % (41.0-53.0); Lymphocytes # (auto) 2.3 10 ^3/uL (0.4-5.4); Lymphocytes % (auto) 30.5 % (10.0-50.0); Mean Corpuscular Hemoglobin 28.3 pg (28.0-32.0); Mean Corpuscular Hgb Conc. 31.5 g/dL (32.0-36.0); Mean Corpuscular Volume 89.8 fL (80.0-100.0); Monocytes % (auto) 13.8 % (0.0-12.0); Neutrophils # (auto) 3.3 10 ^3/uL (1.6-8.6); Neutrophils % (auto) 44.3 % (37.0-80.0); Nucleated Red Blood Cells % 0.3 %; Platelet Count (auto) 373 10^3/uL (140-450); Red Blood Cells 3.18 10^6/uL (4.5-5.90); Red Cell Distribution Width 18.1 % (11.8-14.3); White Blood Cell 7.5 10^3/uL (4.4-10.8)
[2024-03-16 04:16] LABS: INR 1.13 (0.9-1.15); Partial Thromboplastin Time 23.4 SEC (24.5-34.5); Prothrombin Time 11.9 sec (9.3-11.8)
[2024-03-16 04:18] LABS: Anion Gap 10 (5-15); Carbon Dioxide 25 mmol/L (20-30); Chloride 96 mmol/L (98-107); Potassium 3.8 mmol/L (3.5-5.1)
[2024-03-16 04:19] LABS: Calcium 9.6 mg/dL (8.7-10.4)
[2024-03-16 04:24] LABS: BUN/Creatinine Ratio 3.6 (10.0-20.0); Blood Urea Nitrogen 24 mg/dL (9-23)
[2024-03-16 04:30] LABS: Glucose 366 mg/dL (74-106); Sodium 131 mmol/L (136-145)
[2024-03-16] MEDS: SODIUM CHL 0.9% 1000 ML BAG XX ONE (08:00)
[2024-03-16] MEDS: IODIXANOL 320MG/ML 100ML BTL IV ONE (08:00)
[2024-03-16] MEDS: LIDOCAINE 2%HCL (LOCAL ANESTH.) INJ 20ML MDV ONE (08:00)
[2024-03-16] MEDS: CATHFLO ACTIVASE (ALTEPLASE) 2 MG VIAL IV ONE (17:11)
[2024-03-16] MEDS: HEPARIN DRIP/D5W 100UNITS/ML 250 ML IV SCH (17:52)
[2024-03-16 20:15] LABS: Basophils # (auto) 0.1 10 ^3/uL (0-0.2); Basophils % (auto) 1.9 % (0.0-2.0); Eosinophils # (auto) 0.5 10 ^3/uL (0-0.8); Eosinophils % (auto) 8.4 % (0.0-7.0); Hematocrit 31.1 % (41.0-53.0); Hemoglobin 9.7 g/dL (13.5-17.5); Lymphocytes # (auto) 1.4 10 ^3/uL (0.4-5.4); Lymphocytes % (auto) 22.8 % (10.0-50.0); Mean Corpuscular Hemoglobin 28.2 pg (28.0-32.0); Mean Corpuscular Hgb Conc. 31.3 g/dL (32.0-36.0); Monocytes # (auto) 0.7 10 ^3/uL (0-1.3); Monocytes % (auto) 12.3 % (0.0-12.0); Neutrophils # (auto) 3.3 10 ^3/uL (1.6-8.6); Neutrophils % (auto) 54.6 % (37.0-80.0); Nucleated Red Blood Cells % 0.1 %; Platelet Count (auto) 402 10^3/uL (140-450); Red Blood Cells 3.46 10^6/uL (4.5-5.90); White Blood Cell 6.1 10^3/uL (4.4-10.8)
[2024-03-16 20:28] LABS: INR 1.17 (0.9-1.15); Partial Thromboplastin Time 43.2 SEC (24.5-34.5); Prothrombin Time 12.3 sec (9.3-11.8)
[2024-03-17] VITALS (96 sets, daily range): BP systolic 74–146; BP diastolic 34–75; PULSE 77–110; RESP 12–30; TEMP 98–98.9; O2SAT 87–100
[2024-03-17 01:20] LABS: INR 1.17 (0.9-1.15); Partial Thromboplastin Time 55.1 SEC (24.5-34.5); Prothrombin Time 12.3 sec (9.3-11.8)
[2024-03-17 03:46] LABS: Hemoglobin 9.3 g/dL (13.5-17.5)
[2024-03-17 03:52] LABS: Basophils # (auto) 0.1 10 ^3/uL (0-0.2); Eosinophils # (auto) 0.6 10 ^3/uL (0-0.8); Eosinophils % (auto) 8.3 % (0.0-7.0); Hematocrit 29.3 % (41.0-53.0); Hemoglobin 9.4 g/dL (13.5-17.5); Lymphocytes # (auto) 1.8 10 ^3/uL (0.4-5.4); Mean Corpuscular Hemoglobin 28.7 pg (28.0-32.0); Mean Corpuscular Hgb Conc. 32.2 g/dL (32.0-36.0); Mean Corpuscular Volume 89.1 fL (80.0-100.0); Monocytes # (auto) 0.9 10 ^3/uL (0-1.3); Neutrophils # (auto) 3.9 10 ^3/uL (1.6-8.6); Neutrophils % (auto) 52.7 % (37.0-80.0); Nucleated Red Blood Cells % 0.2 %; Platelet Count (auto) 369 10^3/uL (140-450); Red Blood Cells 3.29 10^6/uL (4.5-5.90); Red Cell Distribution Width 18.3 % (11.8-14.3); White Blood Cell 7.3 10^3/uL (4.4-10.8)
[2024-03-17 03:59] LABS: Anion Gap 10 (5-15); Calcium 9.7 mg/dL (8.7-10.4); Carbon Dioxide 25 mmol/L (20-30); Chloride 99 mmol/L (98-107); Potassium 4.2 mmol/L (3.5-5.1); Sodium 134 mmol/L (136-145)
[2024-03-17 04:05] LABS: BUN/Creatinine Ratio 3.5 (10.0-20.0); Blood Urea Nitrogen 25 mg/dL (9-23)
[2024-03-17 04:07] LABS: Glucose 137 mg/dL (74-106); Phosphorus 4.4 mg/dL (2.4-5.1)
[2024-03-17 04:12] LABS: % Iron Saturation 27.4 % (20-55)
[2024-03-17 09:00] LABS: INR 1.19 (0.9-1.15); Prothrombin Time 12.5 sec (9.3-11.8)
[2024-03-17 09:02] LABS: Partial Thromboplastin Time > 139.0 SEC (24.5-34.5)
[2024-03-17] MEDS: EPOETIN ALFA-EPBX 10,000 UNIT/1ML VIAL SC ONE ×2 (09:27→18:32)
[2024-03-17] MEDS: SODIUM CHL 0.9% 1000 ML BAG XX ONE (09:28)
[2024-03-17] MEDS: HEPARIN DRIP/D5W 100UNITS/ML 250 ML IV SCH ×2 (10:00→18:21)
[2024-03-17] MEDS: MIDODRINE HCL 10 MG TAB PO SCH (12:44)
[2024-03-17 17:01] LABS: INR 1.24 (0.9-1.15); Prothrombin Time 12.9 sec (9.3-11.8)
[2024-03-17 17:06] LABS: Partial Thromboplastin Time > 139.0 SEC (24.5-34.5)
[2024-03-18] VITALS (82 sets, daily range): BP systolic 76–149; BP diastolic 17–125; PULSE 64–97; RESP 10–29; TEMP 97.8–98.2; O2SAT 71–100
[2024-03-18 01:12] LABS: INR 1.25 (0.9-1.15)
[2024-03-18 01:18] LABS: Partial Thromboplastin Time 97.3 SEC (24.5-34.5)
[2024-03-18] MEDS: HEPARIN DRIP/D5W 100UNITS/ML 250 ML IV SCH ×2 (02:30→22:30)
[2024-03-18 04:07] LABS: Basophils # (auto) 0.1 10 ^3/uL (0-0.2); Basophils % (auto) 1.6 % (0.0-2.0); Eosinophils # (auto) 0.4 10 ^3/uL (0-0.8); Eosinophils % (auto) 4.6 % (0.0-7.0); Hematocrit 30.5 % (41.0-53.0); Hemoglobin 9.6 g/dL (13.5-17.5); Lymphocytes # (auto) 2.5 10 ^3/uL (0.4-5.4); Lymphocytes % (auto) 28.2 % (10.0-50.0); Mean Corpuscular Hemoglobin 27.8 pg (28.0-32.0); Mean Corpuscular Hgb Conc. 31.5 g/dL (32.0-36.0); Mean Corpuscular Volume 88.1 fL (80.0-100.0); Monocytes % (auto) 11.8 % (0.0-12.0); Neutrophils # (auto) 4.7 10 ^3/uL (1.6-8.6); Neutrophils % (auto) 53.8 % (37.0-80.0); Nucleated Red Blood Cells % 0.3 %; Platelet Count (auto) 380 10^3/uL (140-450); Red Blood Cells 3.46 10^6/uL (4.5-5.90); Red Cell Distribution Width 19.2 % (11.8-14.3); White Blood Cell 8.8 10^3/uL (4.4-10.8)
[2024-03-18 06:09] LABS: Alanine Aminotransferase 16 U/L (7-40); Albumin 3.8 g/dL (3.2-4.8); Alkaline Phosphatase 128 U/L (46-116); Anion Gap 7 (5-15); Aspartate Aminotransferase 63 U/L (13-40); BUN/Creatinine Ratio 3.2 (10.0-20.0); Bilirubin, Total 0.7 mg/dL (0.2-1.0); Blood Urea Nitrogen 17 mg/dL (9-23); Calcium 9.8 mg/dL (8.7-10.4); Carbon Dioxide 27 mmol/L (20-30); Chloride 98 mmol/L (98-107); Glucose 144 mg/dL (74-106); Potassium 3.8 mmol/L (3.5-5.1); Sodium 132 mmol/L (136-145); Total Protein 8.1 g/dL (5.7-8.2)
[2024-03-18 10:03] LABS: INR 1.23 (0.9-1.15); Prothrombin Time 12.8 sec (9.3-11.8)
[2024-03-18 10:41] LABS: Partial Thromboplastin Time 74.6 SEC (24.5-34.5)
[2024-03-18] MEDS: LIDOCAINE 2%HCL (LOCAL ANESTH.) INJ 20ML MDV ONE (10:44)
[2024-03-18] MEDS: IODIXANOL 320MG/ML 100ML BTL IV ONE (11:00)
[2024-03-18] MEDS: HEPARIN SODIUM (PORCINE) 5000 UNITS/ML 1ML VIAL ONE (12:48)
[2024-03-18 15:30] LABS: INR 1.25 (0.9-1.15)
[2024-03-18 15:44] LABS: Partial Thromboplastin Time 71.5 SEC (24.5-34.5)
[2024-03-18 22:09] LABS: INR 1.22 (0.9-1.15); Partial Thromboplastin Time 47.8 SEC (24.5-34.5); Prothrombin Time 12.7 sec (9.3-11.8)
[2024-03-19] VITALS (90 sets, daily range): BP systolic 76–164; BP diastolic 35–100; PULSE 64–97; RESP 10–27; TEMP 97.8–98.4; O2SAT 91–100
[2024-03-19 04:33] LABS: Basophils # (auto) 0.1 10 ^3/uL (0-0.2); Basophils % (auto) 1.5 % (0.0-2.0); Eosinophils # (auto) 0.4 10 ^3/uL (0-0.8); Eosinophils % (auto) 4.7 % (0.0-7.0); Hematocrit 30.6 % (41.0-53.0); Hemoglobin 9.6 g/dL (13.5-17.5); Lymphocytes # (auto) 1.9 10 ^3/uL (0.4-5.4); Lymphocytes % (auto) 23.8 % (10.0-50.0); Mean Corpuscular Hemoglobin 27.9 pg (28.0-32.0); Mean Corpuscular Hgb Conc. 31.5 g/dL (32.0-36.0); Mean Corpuscular Volume 88.5 fL (80.0-100.0); Monocytes # (auto) 1.1 10 ^3/uL (0-1.3); Monocytes % (auto) 13.2 % (0.0-12.0); Neutrophils # (auto) 4.6 10 ^3/uL (1.6-8.6); Neutrophils % (auto) 56.8 % (37.0-80.0); Nucleated Red Blood Cells % 0.2 %; Platelet Count (auto) 400 10^3/uL (140-450); Red Blood Cells 3.46 10^6/uL (4.5-5.90); Red Cell Distribution Width 19.5 % (11.8-14.3)
[2024-03-19 04:54] LABS: Anion Gap 9 (5-15); Carbon Dioxide 27 mmol/L (20-30); Chloride 95 mmol/L (98-107); Potassium 3.6 mmol/L (3.5-5.1); Sodium 131 mmol/L (136-145)
[2024-03-19 04:56] LABS: Calcium 9.9 mg/dL (8.7-10.4)
[2024-03-19 05:00] LABS: BUN/Creatinine Ratio 3.2 (10.0-20.0); Blood Urea Nitrogen 20 mg/dL (9-23); Glucose 171 mg/dL (74-106)
[2024-03-19 06:18] LABS: INR 1.23 (0.9-1.15); Partial Thromboplastin Time 58.2 SEC (24.5-34.5); Prothrombin Time 12.8 sec (9.3-11.8)
[2024-03-19 09:04] LABS: Hepatitis B Surface Antigen Negative (Negative)
[2024-03-19 09:24] LABS: Hepatitis A Ab IgM Negative
[2024-03-19 09:25] LABS: Hepatitis B Core IgM Negative; Hepatitis C Antibody Negative (Negative)
[2024-03-19 12:59] LABS: INR 1.19 (0.9-1.15); Prothrombin Time 12.5 sec (9.3-11.8)
[2024-03-19 13:10] LABS: Partial Thromboplastin Time 79.7 SEC (24.5-34.5)
[2024-03-19] MEDS: CATHFLO ACTIVASE (ALTEPLASE) 2 MG VIAL IV ONE (16:15)
[2024-03-19 19:15] LABS: INR 1.25 (0.9-1.15)
[2024-03-19 19:21] LABS: Partial Thromboplastin Time 105.3 SEC (24.5-34.5)
[2024-03-19] MEDS: HEPARIN DRIP/D5W 100UNITS/ML 250 ML IV SCH (21:45)
[2024-03-20] VITALS (106 sets, daily range): BP systolic 84–144; BP diastolic 35–117; PULSE 64–102; RESP 11–30; TEMP 97.7–98.8; O2SAT 78–100
[2024-03-20 03:11] LABS: INR 1.19 (0.9-1.15); Partial Thromboplastin Time 54.1 SEC (24.5-34.5); Prothrombin Time 12.5 sec (9.3-11.8)
[2024-03-20 04:36] LABS: Basophils # (auto) 0.1 10 ^3/uL (0-0.2); Basophils % (auto) 1.1 % (0.0-2.0); Eosinophils # (auto) 0.4 10 ^3/uL (0-0.8); Hematocrit 28.3 % (41.0-53.0); Hemoglobin 9.1 g/dL (13.5-17.5); Lymphocytes # (auto) 1.4 10 ^3/uL (0.4-5.4); Lymphocytes % (auto) 22.6 % (10.0-50.0); Mean Corpuscular Hemoglobin 28.3 pg (28.0-32.0); Mean Corpuscular Volume 88.4 fL (80.0-100.0); Monocytes # (auto) 0.8 10 ^3/uL (0-1.3); Monocytes % (auto) 12.6 % (0.0-12.0); Neutrophils # (auto) 3.6 10 ^3/uL (1.6-8.6); Neutrophils % (auto) 57.7 % (37.0-80.0); Nucleated Red Blood Cells % 0.1 %; Platelet Count (auto) 295 10^3/uL (140-450); Red Blood Cells 3.21 10^6/uL (4.5-5.90); Red Cell Distribution Width 19.5 % (11.8-14.3); White Blood Cell 6.2 10^3/uL (4.4-10.8)
[2024-03-20 04:43] LABS: Albumin 3.9 g/dL (3.2-4.8); Alkaline Phosphatase 115 U/L (46-116); Anion Gap 8 (5-15); BUN/Creatinine Ratio 2.7 (10.0-20.0); Blood Urea Nitrogen 12 mg/dL (9-23); Calcium 9.6 mg/dL (8.7-10.4); Carbon Dioxide 26 mmol/L (20-30); Chloride 100 mmol/L (98-107); Glucose 135 mg/dL (74-106); Potassium 3.4 mmol/L (3.5-5.1); Sodium 134 mmol/L (136-145)
[2024-03-20 04:44] LABS: Aspartate Aminotransferase 47 U/L (13-40); Bilirubin, Total 0.8 mg/dL (0.2-1.0); Total Protein 7.9 g/dL (5.7-8.2)
[2024-03-20 05:14] LABS: Alanine Aminotransferase < 9 U/L (7-40)
[2024-03-20] MEDS: POTASSIUM CHL 20MEQ/100ML 100 ML IV SCH (07:00)
[2024-03-20] MEDS: POTASSIUM CHL 20MEQ/100ML 100 ML IV ONE (07:00)
[2024-03-20 11:06] LABS: INR 1.16 (0.9-1.15); Partial Thromboplastin Time 39.3 SEC (24.5-34.5); Prothrombin Time 12.2 sec (9.3-11.8)
[2024-03-20] MEDS: HEPARIN DRIP/D5W 100UNITS/ML 250 ML IV SCH ×2 (11:34→18:36)
[2024-03-20 17:50] LABS: INR 1.14 (0.9-1.15); Partial Thromboplastin Time 23.2 SEC (24.5-34.5)
[2024-03-20] MEDS: MIDODRINE HCL 10 MG TAB PO SCH (18:30)
[2024-03-20] MEDS: HEPARIN SODIUM (PORCINE) 5000 UNITS/ML 1ML VIAL IV ONE (18:36)
[2024-03-21] VITALS (95 sets, daily range): BP systolic 75–149; BP diastolic 35–87; PULSE 62–105; RESP 11–28; TEMP 98–98.4; O2SAT 86–100
[2024-03-21 01:03] LABS: INR 1.18 (0.9-1.15); Prothrombin Time 12.4 sec (9.3-11.8)
[2024-03-21 01:06] LABS: Partial Thromboplastin Time 81.6 SEC (24.5-34.5)
[2024-03-21] MEDS: HEPARIN DRIP/D5W 100UNITS/ML 250 ML IV SCH ×2 (01:29→15:30)
[2024-03-21 04:04] LABS: Basophils # (auto) 0.1 10 ^3/uL (0-0.2); Basophils % (auto) 1.6 % (0.0-2.0); Eosinophils # (auto) 0.4 10 ^3/uL (0-0.8); Eosinophils % (auto) 5.8 % (0.0-7.0); Hematocrit 27.8 % (41.0-53.0); Hemoglobin 8.8 g/dL (13.5-17.5); Lymphocytes # (auto) 1.8 10 ^3/uL (0.4-5.4); Lymphocytes % (auto) 27.7 % (10.0-50.0); Mean Corpuscular Hemoglobin 27.8 pg (28.0-32.0); Mean Corpuscular Hgb Conc. 31.5 g/dL (32.0-36.0); Mean Corpuscular Volume 88.5 fL (80.0-100.0); Monocytes # (auto) 0.8 10 ^3/uL (0-1.3); Monocytes % (auto) 12.2 % (0.0-12.0); Neutrophils # (auto) 3.5 10 ^3/uL (1.6-8.6); Neutrophils % (auto) 52.7 % (37.0-80.0); Nucleated Red Blood Cells % 0.2 %; Platelet Count (auto) 301 10^3/uL (140-450); Red Blood Cells 3.15 10^6/uL (4.5-5.90); Red Cell Distribution Width 19.2 % (11.8-14.3); White Blood Cell 6.6 10^3/uL (4.4-10.8)
[2024-03-21 04:09] LABS: Chloride 100 mmol/L (98-107); Potassium 3.7 mmol/L (3.5-5.1); Sodium 135 mmol/L (136-145)
[2024-03-21 04:10] LABS: Anion Gap 13 (5-15); Calcium 9.3 mg/dL (8.7-10.4); Carbon Dioxide 22 mmol/L (20-30)
[2024-03-21 04:15] LABS: Glucose 166 mg/dL (74-106)
[2024-03-21 04:16] LABS: BUN/Creatinine Ratio 3.3 (10.0-20.0); Blood Urea Nitrogen 18 mg/dL (9-23); Magnesium 1.9 mg/dL (1.6-2.6)
[2024-03-21 08:31] LABS: INR 1.13 (0.9-1.15); Partial Thromboplastin Time 56.2 SEC (24.5-34.5); Prothrombin Time 11.9 sec (9.3-11.8)
[2024-03-21] MEDS: SODIUM CHL 0.9% 1000 ML BAG XX ONE (14:15)
[2024-03-21 15:17] LABS: INR 1.13 (0.9-1.15); Partial Thromboplastin Time 40.7 SEC (24.5-34.5); Prothrombin Time 11.9 sec (9.3-11.8)
[2024-03-21] MEDS: EPOETIN ALFA-EPBX 10,000 UNIT/1ML VIAL SC ONE (22:26)
[2024-03-21 22:32] LABS: INR 1.23 (0.9-1.15); Prothrombin Time 12.8 sec (9.3-11.8)
[2024-03-21 22:33] LABS: Partial Thromboplastin Time 70.9 SEC (24.5-34.5)
[2024-03-22] VITALS (96 sets, daily range): BP systolic 76–143; BP diastolic 21–99; PULSE 70–105; RESP 9–28; TEMP 97.7–98.2; O2SAT 81–100
[2024-03-22 04:14] LABS: INR 1.22 (0.9-1.15); Partial Thromboplastin Time 58.3 SEC (24.5-34.5); Prothrombin Time 12.7 sec (9.3-11.8)
[2024-03-22 11:40] LABS: INR 1.21 (0.9-1.15); Partial Thromboplastin Time 62.9 SEC (24.5-34.5); Prothrombin Time 12.6 sec (9.3-11.8)
[2024-03-23] VITALS (81 sets, daily range): BP systolic 71–133; BP diastolic 35–75; PULSE 62–114; RESP 12–25; TEMP 97.6–98.3; O2SAT 84–100
[2024-03-23 04:09] LABS: INR 1.18 (0.9-1.15); Partial Thromboplastin Time 59.6 SEC (24.5-34.5); Prothrombin Time 12.4 sec (9.3-11.8)
[2024-03-23 07:16] LABS: Albumin 3.8 g/dL (3.2-4.8); Alkaline Phosphatase 114 U/L (46-116); Anion Gap 9 (5-15); Aspartate Aminotransferase 45 U/L (13-40); Bilirubin, Total 0.7 mg/dL (0.2-1.0); Blood Urea Nitrogen 20 mg/dL (9-23); Carbon Dioxide 25 mmol/L (20-30); Chloride 100 mmol/L (98-107); Glucose 172 mg/dL (74-106); Potassium 3.7 mmol/L (3.5-5.1); Sodium 134 mmol/L (136-145); Total Protein 7.7 g/dL (5.7-8.2)
[2024-03-23 07:21] LABS: Alanine Aminotransferase < 9 U/L (7-40); BUN/Creatinine Ratio 3.2 (10.0-20.0)
[2024-03-23] MEDS: SODIUM CHLORIDE 0.9% 250 ML IV ONE (16:00)
[2024-03-23] MEDS: MIDODRINE HCL 10 MG TAB PO ONE (16:40)
[2024-03-23] MEDS: MIDODRINE HCL 10 MG TAB PO SCH (22:23)
[2024-03-24] VITALS (27 sets, daily range): BP systolic 74–135; BP diastolic 39–95; PULSE 73–105; RESP 12–29; TEMP 97.7–98.3; O2SAT 92–100
[2024-03-24 04:50] LABS: INR 1.19 (0.9-1.15); Partial Thromboplastin Time 57.5 SEC (24.5-34.5); Prothrombin Time 12.5 sec (9.3-11.8)
[2024-03-24] MEDS: EPOETIN ALFA-EPBX 10,000 UNIT/1ML VIAL SC SCH (09:48)
[2024-03-24 10:41] LABS: Chloride 99 mmol/L (98-107); Sodium 133 mmol/L (136-145)
[2024-03-24 10:42] LABS: Anion Gap 9 (5-15); Carbon Dioxide 25 mmol/L (20-30)
[2024-03-24 10:43] LABS: Calcium 10.1 mg/dL (8.7-10.4)
[2024-03-24 10:47] LABS: Glucose 100 mg/dL (74-106)
[2024-03-24 10:48] LABS: BUN/Creatinine Ratio 3.4 (10.0-20.0); Blood Urea Nitrogen 25 mg/dL (9-23)
[2024-03-24] MEDS: WARFARIN SODIUM 5 MG TAB PO ONE (21:37)
[2024-03-25] VITALS (21 sets, daily range): BP systolic 84–113; BP diastolic 38–83; PULSE 71–98; RESP 11–23; TEMP 97.5–98.7; O2SAT 91–100
[2024-03-25 05:24] LABS: Chloride 99 mmol/L (98-107); Potassium 3.7 mmol/L (3.5-5.1); Sodium 132 mmol/L (136-145)
[2024-03-25 05:25] LABS: Anion Gap 8 (5-15); Calcium 9.6 mg/dL (8.7-10.4); Carbon Dioxide 25 mmol/L (20-30)
[2024-03-25 05:30] LABS: BUN/Creatinine Ratio 2.8 (10.0-20.0); Blood Urea Nitrogen 18 mg/dL (9-23); Glucose 101 mg/dL (74-106)
[2024-03-25 05:53] LABS: INR 1.17 (0.9-1.15); Partial Thromboplastin Time 54.8 SEC (24.5-34.5); Prothrombin Time 12.3 sec (9.3-11.8)
[2024-03-25 05:56] LABS: Basophils # (auto) 0.1 10 ^3/uL (0-0.2); Basophils % (auto) 1.5 % (0.0-2.0); Eosinophils # (auto) 0.3 10 ^3/uL (0-0.8); Eosinophils % (auto) 4.7 % (0.0-7.0); Hematocrit 35.7 % (41.0-53.0); Hemoglobin 10.4 g/dL (13.5-17.5); Lymphocytes % (auto) 27.7 % (10.0-50.0); Mean Corpuscular Hemoglobin 27.6 pg (28.0-32.0); Mean Corpuscular Hgb Conc. 29.1 g/dL (32.0-36.0); Mean Corpuscular Volume 94.8 fL (80.0-100.0); Monocytes # (auto) 0.9 10 ^3/uL (0-1.3); Neutrophils # (auto) 3.8 10 ^3/uL (1.6-8.6); Neutrophils % (auto) 53.1 % (37.0-80.0); Nucleated Red Blood Cells % 0.2 %; Platelet Count (auto) 275 10^3/uL (140-450); Red Blood Cells 3.77 10^6/uL (4.5-5.90); White Blood Cell 7.2 10^3/uL (4.4-10.8)
[2024-03-25] MEDS: ACETAMINOPHEN 325 MG TAB PO PRN (16:55)
[2024-03-25] MEDS: WARFARIN SODIUM 5 MG TAB PO ONE (16:56)
[2024-03-26] VITALS (19 sets, daily range): BP systolic 89–126; BP diastolic 38–64; PULSE 62–102; RESP 12–24; TEMP 97.8–98.8; O2SAT 93–100
[2024-03-26 05:13] LABS: Basophils # (auto) 0.1 10 ^3/uL (0-0.2); Basophils % (auto) 1.5 % (0.0-2.0); Eosinophils # (auto) 0.4 10 ^3/uL (0-0.8); Eosinophils % (auto) 4.7 % (0.0-7.0); Hematocrit 29.8 % (41.0-53.0); Hemoglobin 9.3 g/dL (13.5-17.5); Lymphocytes # (auto) 2.7 10 ^3/uL (0.4-5.4); Lymphocytes % (auto) 35.3 % (10.0-50.0); Mean Corpuscular Hemoglobin 27.9 pg (28.0-32.0); Mean Corpuscular Hgb Conc. 31.3 g/dL (32.0-36.0); Mean Corpuscular Volume 88.9 fL (80.0-100.0); Monocytes # (auto) 0.9 10 ^3/uL (0-1.3); Monocytes % (auto) 11.4 % (0.0-12.0); Neutrophils # (auto) 3.5 10 ^3/uL (1.6-8.6); Neutrophils % (auto) 47.1 % (37.0-80.0); Nucleated Red Blood Cells % 0.1 %; Platelet Count (auto) 283 10^3/uL (140-450); Red Blood Cells 3.35 10^6/uL (4.5-5.90); Red Cell Distribution Width 17.7 % (11.8-14.3); White Blood Cell 7.5 10^3/uL (4.4-10.8)
[2024-03-26 07:07] LABS: INR 1.27 (0.9-1.15); Partial Thromboplastin Time 58.4 SEC (24.5-34.5); Prothrombin Time 13.2 sec (9.3-11.8)
[2024-03-26] MEDS: SODIUM CHL 0.9% 1000 ML BAG XX ONE (07:45)
[2024-03-26] MEDS: CATHFLO ACTIVASE (ALTEPLASE) 2 MG VIAL IV ONE (08:45)
[2024-03-26 10:10] LABS: Chloride 98 mmol/L (98-107); Potassium 4.4 mmol/L (3.5-5.1); Sodium 131 mmol/L (136-145)
[2024-03-26 10:11] LABS: Anion Gap 8 (5-15); Calcium 9.7 mg/dL (8.7-10.4); Carbon Dioxide 25 mmol/L (20-30)
[2024-03-26 10:16] LABS: BUN/Creatinine Ratio 3.7 (10.0-20.0); Blood Urea Nitrogen 27 mg/dL (9-23); Glucose 80 mg/dL (74-106)
[2024-03-26] MEDS: WARFARIN SODIUM 5 MG TAB PO ONE (17:21)
[2024-03-27] VITALS (22 sets, daily range): BP systolic 86–135; BP diastolic 42–75; PULSE 66–89; RESP 9–18; TEMP 97.7–99.4; O2SAT 87–100
[2024-03-27 05:32] LABS: INR 1.33 (0.9-1.15); Partial Thromboplastin Time 55.7 SEC (24.5-34.5); Prothrombin Time 13.8 sec (9.3-11.8)
[2024-03-27 11:42] LABS: Chloride 99 mmol/L (98-107); Potassium 4.7 mmol/L (3.5-5.1); Sodium 130 mmol/L (136-145)
[2024-03-27 11:43] LABS: Calcium 9.6 mg/dL (8.7-10.4)
[2024-03-27 11:48] LABS: BUN/Creatinine Ratio 4.2 (10.0-20.0); Blood Urea Nitrogen 26 mg/dL (9-23); Glucose 82 mg/dL (74-106)
[2024-03-27 12:10] LABS: Anion Gap 8 (5-15); Carbon Dioxide 23 mmol/L (20-30)
[2024-03-27] MEDS ORDERED: ARTIFICIAL TEARS 15ml EACHEYE PRN (16:45)
[2024-03-27] MEDS: IODIXANOL 320MG/ML 100ML BTL IV ONE (17:26)
[2024-03-27] MEDS: HEPARIN SODIUM (PORCINE) 5000 UNITS/ML 1ML VIAL ONE (17:34)
[2024-03-27] MEDS: LIDOCAINE 2%HCL (LOCAL ANESTH.) INJ 20ML MDV ONE (17:34)
[2024-03-27] MEDS: MIDAZOLAM HCL 2MG/2ML 2ml VIAL (1mg/ml) ONE (17:41)
[2024-03-27] MEDS: fentaNYL CITRATE 100 MCG/2 ML VL ONE (17:41)
[2024-03-27] MEDS: WARFARIN SODIUM 2 MG TAB PO ONE (21:33)
[2024-03-28] VITALS (66 sets, daily range): BP systolic 100–136; BP diastolic 34–83; PULSE 61–85; RESP 11–24; TEMP 97.9–99; O2SAT 85–100
[2024-03-28 06:04] LABS: INR 1.5 (0.9-1.15); Partial Thromboplastin Time 66.1 SEC (24.5-34.5); Prothrombin Time 15.4 sec (9.3-11.8)
[2024-03-28 09:31] LABS: Basophils # (auto) 0.2 10 ^3/uL (0-0.2); Basophils % (auto) 2.5 % (0.0-2.0); Eosinophils # (auto) 0.3 10 ^3/uL (0-0.8); Eosinophils % (auto) 4.9 % (0.0-7.0); Hematocrit 30.3 % (41.0-53.0); Hemoglobin 9.5 g/dL (13.5-17.5); Lymphocytes % (auto) 32.6 % (10.0-50.0); Mean Corpuscular Hemoglobin 27.5 pg (28.0-32.0); Mean Corpuscular Hgb Conc. 31.3 g/dL (32.0-36.0); Mean Corpuscular Volume 87.9 fL (80.0-100.0); Monocytes # (auto) 0.7 10 ^3/uL (0-1.3); Monocytes % (auto) 11.1 % (0.0-12.0); Neutrophils % (auto) 48.9 % (37.0-80.0); Nucleated Red Blood Cells % 0.3 %; Platelet Count (auto) 282 10^3/uL (140-450); Red Blood Cells 3.45 10^6/uL (4.5-5.90); Red Cell Distribution Width 17.9 % (11.8-14.3); White Blood Cell 6.1 10^3/uL (4.4-10.8)
[2024-03-28 09:39] LABS: Potassium 4.4 mmol/L (3.5-5.1); Sodium 130 mmol/L (136-145)
[2024-03-28 09:41] LABS: Calcium 9.8 mg/dL (8.7-10.4)
[2024-03-28 09:45] LABS: Glucose 79 mg/dL (74-106)
[2024-03-28 09:46] LABS: BUN/Creatinine Ratio 3.9 (10.0-20.0); Blood Urea Nitrogen 27 mg/dL (9-23)
[2024-03-28 09:50] LABS: Carbon Dioxide 22 mmol/L (20-30)
[2024-03-28 10:45] LABS: Anion Gap 11 (5-15); Chloride 97 mmol/L (98-107)
[2024-03-28] MEDS: SODIUM CHL 0.9% 1000 ML BAG XX ONE (11:00)
[2024-03-28] MEDS: WARFARIN SODIUM 2 MG TAB PO ONE (17:25)
[2024-03-28] MEDS ORDERED: EPOETIN ALFA-EPBX 10,000 UNIT/1ML VIAL SC ONE (21:00)
[2024-03-29] VITALS (18 sets, daily range): BP systolic 90–118; BP diastolic 38–67; PULSE 70–92; RESP 14–21; TEMP 97.6–98.6; O2SAT 87–99
[2024-03-29 06:07] LABS: Basophils # (auto) 0.1 10 ^3/uL (0-0.2); Basophils % (auto) 1.8 % (0.0-2.0); Eosinophils # (auto) 0.3 10 ^3/uL (0-0.8); Eosinophils % (auto) 4.2 % (0.0-7.0); Hematocrit 28.7 % (41.0-53.0); Hemoglobin 9.2 g/dL (13.5-17.5); Lymphocytes # (auto) 1.4 10 ^3/uL (0.4-5.4); Lymphocytes % (auto) 20.9 % (10.0-50.0); Mean Corpuscular Hgb Conc. 31.9 g/dL (32.0-36.0); Mean Corpuscular Volume 87.6 fL (80.0-100.0); Monocytes # (auto) 0.8 10 ^3/uL (0-1.3); Monocytes % (auto) 11.5 % (0.0-12.0); Neutrophils % (auto) 61.6 % (37.0-80.0); Nucleated Red Blood Cells % 0.3 %; Platelet Count (auto) 262 10^3/uL (140-450); Red Blood Cells 3.28 10^6/uL (4.5-5.90); White Blood Cell 6.5 10^3/uL (4.4-10.8)
[2024-03-29 06:28] LABS: INR 2.29 (0.9-1.15); Prothrombin Time 22.8 sec (9.3-11.8)
[2024-03-29 06:35] LABS: Partial Thromboplastin Time 79.4 SEC (24.5-34.5)
[2024-03-29] MEDS: HEPARIN DRIP/D5W 100UNITS/ML 250 ML IV SCH (06:45)
[2024-03-29 12:23] LABS: INR 2.38 (0.9-1.15); Partial Thromboplastin Time 62.7 SEC (24.5-34.5); Prothrombin Time 23.7 sec (9.3-11.8)
[2024-03-29] MEDS: WARFARIN SODIUM 5 MG TAB PO ONE (17:09)
[2024-03-30] VITALS (33 sets, daily range): BP systolic 94–111; BP diastolic 39–64; PULSE 65–87; RESP 13–21; TEMP 97.8–98.8; O2SAT 93–100
[2024-03-30 06:25] LABS: Basophils # (auto) 0.1 10 ^3/uL (0-0.2); Basophils % (auto) 1.1 % (0.0-2.0); Eosinophils # (auto) 0.4 10 ^3/uL (0-0.8); Eosinophils % (auto) 5.7 % (0.0-7.0); Hemoglobin 9.4 g/dL (13.5-17.5); Lymphocytes # (auto) 2.3 10 ^3/uL (0.4-5.4); Mean Corpuscular Hemoglobin 27.7 pg (28.0-32.0); Mean Corpuscular Hgb Conc. 31.2 g/dL (32.0-36.0); Mean Corpuscular Volume 88.7 fL (80.0-100.0); Monocytes # (auto) 0.8 10 ^3/uL (0-1.3); Monocytes % (auto) 10.8 % (0.0-12.0); Neutrophils # (auto) 3.6 10 ^3/uL (1.6-8.6); Neutrophils % (auto) 50.4 % (37.0-80.0); Nucleated Red Blood Cells % 0.1 %; Platelet Count (auto) 278 10^3/uL (140-450); Red Blood Cells 3.38 10^6/uL (4.5-5.90); Red Cell Distribution Width 17.7 % (11.8-14.3); White Blood Cell 7.2 10^3/uL (4.4-10.8)
[2024-03-30 06:31] LABS: Anion Gap 10 (5-15); Carbon Dioxide 23 mmol/L (20-30); Chloride 101 mmol/L (98-107); Potassium 4.2 mmol/L (3.5-5.1); Sodium 134 mmol/L (136-145)
[2024-03-30 06:37] LABS: Glucose 84 mg/dL (74-106)
[2024-03-30 06:38] LABS: BUN/Creatinine Ratio 3.9 (10.0-20.0); Blood Urea Nitrogen 26 mg/dL (9-23)
[2024-03-30 06:54] LABS: INR 2.47 (0.9-1.15); Partial Thromboplastin Time 35.9 SEC (24.5-34.5); Prothrombin Time 24.5 sec (9.3-11.8)
[2024-03-30] MEDS ORDERED: DEXTROSE (50%) 50ML SYRG IV PRN (11:15)
[2024-03-30] MEDS: ACCU-CHEK COMFORT CURVE STRIP VI SCH (11:30)
[2024-03-30] MEDS: InsuLIN REG 1unit/0.01ml Soln (100units/ml) SC SCH (11:30)
[2024-03-30] MEDS: WARFARIN SODIUM 5 MG TAB PO ONE (17:05)
[2024-03-31] VITALS (21 sets, daily range): BP systolic 85–125; BP diastolic 38–72; PULSE 65–78; RESP 15–21; TEMP 97.5–98.4; O2SAT 91–100
[2024-03-31 06:21] LABS: Basophils # (auto) 0.1 10 ^3/uL (0-0.2); Basophils % (auto) 1.4 % (0.0-2.0); Eosinophils # (auto) 0.3 10 ^3/uL (0-0.8); Eosinophils % (auto) 5.6 % (0.0-7.0); Hematocrit 29.4 % (41.0-53.0); Hemoglobin 9.2 g/dL (13.5-17.5); Lymphocytes # (auto) 1.8 10 ^3/uL (0.4-5.4); Lymphocytes % (auto) 28.8 % (10.0-50.0); Mean Corpuscular Hemoglobin 27.7 pg (28.0-32.0); Mean Corpuscular Hgb Conc. 31.4 g/dL (32.0-36.0); Mean Corpuscular Volume 87.9 fL (80.0-100.0); Monocytes # (auto) 0.6 10 ^3/uL (0-1.3); Monocytes % (auto) 9.2 % (0.0-12.0); Neutrophils # (auto) 3.4 10 ^3/uL (1.6-8.6); Nucleated Red Blood Cells % 0.1 %; Platelet Count (auto) 272 10^3/uL (140-450); Red Blood Cells 3.35 10^6/uL (4.5-5.90); Red Cell Distribution Width 17.8 % (11.8-14.3); White Blood Cell 6.1 10^3/uL (4.4-10.8)
[2024-03-31 06:29] LABS: INR 2.31 (0.9-1.15); Partial Thromboplastin Time 38.5 SEC (24.5-34.5)
[2024-03-31 06:34] LABS: Calcium 9.6 mg/dL (8.7-10.4); Chloride 100 mmol/L (98-107); Potassium 4.8 mmol/L (3.5-5.1); Sodium 136 mmol/L (136-145)
[2024-03-31 06:35] LABS: Anion Gap 11 (5-15); Carbon Dioxide 25 mmol/L (20-30)
[2024-03-31 06:40] LABS: BUN/Creatinine Ratio 4.4 (10.0-20.0); Glucose 86 mg/dL (74-106)
[2024-03-31 06:46] LABS: Blood Urea Nitrogen 36 mg/dL (9-23)
[2024-03-31] MEDS: SODIUM CHL 0.9% 1000 ML BAG XX ONE (12:01)
[2024-03-31] MEDS: WARFARIN SODIUM 5 MG TAB PO ONE (17:00)
[2024-04-01] VITALS (8 sets, daily range): BP systolic 78–125; BP diastolic 47–95; PULSE 72–91; RESP 18–20; TEMP 97.6–98.3; O2SAT 91–97
[2024-04-01 10:46] LABS: Basophils # (auto) 0.1 10 ^3/uL (0-0.2); Basophils % (auto) 1.9 % (0.0-2.0); Eosinophils # (auto) 0.4 10 ^3/uL (0-0.8); Eosinophils % (auto) 6.2 % (0.0-7.0); Hematocrit 31.4 % (41.0-53.0); Hemoglobin 9.8 g/dL (13.5-17.5); Lymphocytes # (auto) 1.7 10 ^3/uL (0.4-5.4); Lymphocytes % (auto) 24.3 % (10.0-50.0); Mean Corpuscular Hemoglobin 27.8 pg (28.0-32.0); Mean Corpuscular Hgb Conc. 31.2 g/dL (32.0-36.0); Mean Corpuscular Volume 88.9 fL (80.0-100.0); Monocytes # (auto) 0.5 10 ^3/uL (0-1.3); Monocytes % (auto) 7.8 % (0.0-12.0); Neutrophils # (auto) 4.2 10 ^3/uL (1.6-8.6); Neutrophils % (auto) 59.8 % (37.0-80.0); Nucleated Red Blood Cells % 0.1 %; Platelet Count (auto) 253 10^3/uL (140-450); Red Blood Cells 3.54 10^6/uL (4.5-5.90); Red Cell Distribution Width 17.6 % (11.8-14.3)
[2024-04-01 10:52] LABS: INR 1.93 (0.9-1.15); Partial Thromboplastin Time 35.5 SEC (24.5-34.5); Prothrombin Time 19.5 sec (9.3-11.8)
[2024-04-01] MEDS: WARFARIN SODIUM 5 MG TAB PO ONE (17:10)
[2024-04-02] VITALS (10 sets, daily range): BP systolic 88–145; BP diastolic 48–69; PULSE 66–90; RESP 16–19; TEMP 97.6–98.5; O2SAT 88–100
[2024-04-02 07:30] LABS: INR 1.7 (0.9-1.15); Partial Thromboplastin Time 29.1 SEC (24.5-34.5); Prothrombin Time 17.3 sec (9.3-11.8)
[2024-04-02] MEDS: WARFARIN SODIUM 2 MG TAB PO ONE (20:07)
[2024-04-03] VITALS (11 sets, daily range): BP systolic 90–129; BP diastolic 44–75; PULSE 70–96; RESP 15–19; TEMP 97.6–98.1; O2SAT 94–99
[2024-04-03 10:52] LABS: Alanine Aminotransferase 11 U/L (7-40); Alkaline Phosphatase 110 U/L (46-116); Anion Gap 11 (5-15); Aspartate Aminotransferase 49 U/L (13-40); BUN/Creatinine Ratio 4.7 (10.0-20.0); Blood Urea Nitrogen 27 mg/dL (9-23); Calcium 10.2 mg/dL (8.7-10.4); Carbon Dioxide 26 mmol/L (20-31); Chloride 99 mmol/L (98-107); Glucose 99 mg/dL (74-106); Potassium 3.8 mmol/L (3.5-5.1); Sodium 136 mmol/L (136-145)
[2024-04-03 10:53] LABS: Albumin 4.6 g/dL (3.2-4.8); Bilirubin, Total 0.6 mg/dL (0.2-1.0); Total Protein 8.3 g/dL (5.7-8.2)
[2024-04-03 10:54] LABS: INR 1.54 (0.9-1.15); Partial Thromboplastin Time 32.8 SEC (24.5-34.5); Prothrombin Time 15.8 sec (9.3-11.8)
[2024-04-03] MEDS: WARFARIN SODIUM 2 MG TAB PO ONE (17:49)
[2024-04-04] VITALS (12 sets, daily range): BP systolic 98–112; BP diastolic 57–92; PULSE 75–92; RESP 16–20; TEMP 97.7–98.5; O2SAT 94–100
[2024-04-04 06:03] LABS: Basophils # (auto) 0.1 10 ^3/uL (0-0.2); Eosinophils # (auto) 0.7 10 ^3/uL (0-0.8); Eosinophils % (auto) 7.3 % (0.0-7.0); Hemoglobin 11.8 g/dL (13.5-17.5); Lymphocytes # (auto) 2.4 10 ^3/uL (0.4-5.4); Lymphocytes % (auto) 25.3 % (10.0-50.0); Mean Corpuscular Hgb Conc. 31.8 g/dL (32.0-36.0); Mean Corpuscular Volume 87.9 fL (80.0-100.0); Monocytes # (auto) 0.6 10 ^3/uL (0-1.3); Monocytes % (auto) 6.3 % (0.0-12.0); Neutrophils # (auto) 5.7 10 ^3/uL (1.6-8.6); Neutrophils % (auto) 60.1 % (37.0-80.0); Nucleated Red Blood Cells % 0.1 %; Platelet Count (auto) 261 10^3/uL (140-450); Red Blood Cells 4.21 10^6/uL (4.5-5.90); Red Cell Distribution Width 17.6 % (11.8-14.3); White Blood Cell 9.4 10^3/uL (4.4-10.8)
[2024-04-04 06:17] LABS: INR 1.69 (0.9-1.15); Prothrombin Time 17.2 sec (9.3-11.8)
[2024-04-04] MEDS: WARFARIN SODIUM 2 MG TAB PO ONE (17:20)
[2024-04-04] MEDS: SUMAtriptan SUCCINATE 25 MG TAB PO PRN (18:42)
[2024-04-05] VITALS (9 sets, daily range): BP systolic 96–117; BP diastolic 46–80; PULSE 72–90; RESP 18–20; TEMP 97.8–98.3; O2SAT 95–100
[2024-04-05 06:24] LABS: Basophils # (auto) 0.1 10 ^3/uL (0-0.2); Basophils % (auto) 1.3 % (0.0-2.0); Eosinophils # (auto) 0.6 10 ^3/uL (0-0.8); Hematocrit 34.3 % (41.0-53.0); Hemoglobin 11.2 g/dL (13.5-17.5); Lymphocytes # (auto) 2.1 10 ^3/uL (0.4-5.4); Lymphocytes % (auto) 23.5 % (10.0-50.0); Mean Corpuscular Hemoglobin 29.1 pg (28.0-32.0); Mean Corpuscular Hgb Conc. 32.5 g/dL (32.0-36.0); Mean Corpuscular Volume 89.3 fL (80.0-100.0); Monocytes # (auto) 0.6 10 ^3/uL (0-1.3); Monocytes % (auto) 6.5 % (0.0-12.0); Neutrophils # (auto) 5.5 10 ^3/uL (1.6-8.6); Neutrophils % (auto) 61.7 % (37.0-80.0); Nucleated Red Blood Cells % 0.1 %; Platelet Count (auto) 265 10^3/uL (140-450); Red Blood Cells 3.84 10^6/uL (4.5-5.90); Red Cell Distribution Width 18.5 % (11.8-14.3); White Blood Cell 8.9 10^3/uL (4.4-10.8)
[2024-04-05 06:40] LABS: INR 1.95 (0.9-1.15); Partial Thromboplastin Time 36.2 SEC (24.5-34.5); Prothrombin Time 19.7 sec (9.3-11.8)
[2024-04-05 06:42] LABS: Alanine Aminotransferase 11 U/L (7-40); Albumin 4.4 g/dL (3.2-4.8); Alkaline Phosphatase 113 U/L (46-116); Anion Gap 10 (5-15); Aspartate Aminotransferase 50 U/L (13-40); BUN/Creatinine Ratio 3.9 (10.0-20.0); Bilirubin, Total 0.5 mg/dL (0.2-1.0); Blood Urea Nitrogen 20 mg/dL (9-23); Calcium 10.2 mg/dL (8.7-10.4); Carbon Dioxide 25 mmol/L (20-31); Chloride 100 mmol/L (98-107); Glucose 126 mg/dL (74-106); Potassium 3.7 mmol/L (3.5-5.1); Sodium 135 mmol/L (136-145); Total Protein 8.2 g/dL (5.7-8.2)
[2024-04-05] MEDS: WARFARIN SODIUM 2 MG TAB PO ONE (16:54)
[2024-04-06] VITALS (13 sets, daily range): BP systolic 86–110; BP diastolic 54–76; PULSE 65–94; RESP 14–19; TEMP 97.8–98.7; O2SAT 93–100
[2024-04-06 08:11] LABS: Basophils # (auto) 0.1 10 ^3/uL (0-0.2); Basophils % (auto) 0.6 % (0.0-2.0); Eosinophils # (auto) 0.7 10 ^3/uL (0-0.8); Eosinophils % (auto) 7.5 % (0.0-7.0); Hematocrit 33.1 % (41.0-53.0); Hemoglobin 10.6 g/dL (13.5-17.5); Lymphocytes # (auto) 2.1 10 ^3/uL (0.4-5.4); Lymphocytes % (auto) 23.3 % (10.0-50.0); Mean Corpuscular Hemoglobin 28.4 pg (28.0-32.0); Mean Corpuscular Hgb Conc. 32.1 g/dL (32.0-36.0); Mean Corpuscular Volume 88.4 fL (80.0-100.0); Monocytes # (auto) 0.6 10 ^3/uL (0-1.3); Monocytes % (auto) 7.3 % (0.0-12.0); Neutrophils # (auto) 5.4 10 ^3/uL (1.6-8.6); Neutrophils % (auto) 61.3 % (37.0-80.0); Nucleated Red Blood Cells % 0.1 %; Platelet Count (auto) 282 10^3/uL (140-450); Red Blood Cells 3.74 10^6/uL (4.5-5.90); Red Cell Distribution Width 18.1 % (11.8-14.3); White Blood Cell 8.9 10^3/uL (4.4-10.8)
[2024-04-06 08:14] LABS: Alanine Aminotransferase 18 U/L (7-40); Albumin 4.2 g/dL (3.2-4.8); Alkaline Phosphatase 111 U/L (46-116); Anion Gap 13 (5-15); Aspartate Aminotransferase 72 U/L (13-40); BUN/Creatinine Ratio 4.5 (10.0-20.0); Blood Urea Nitrogen 29 mg/dL (9-23); Calcium 9.8 mg/dL (8.7-10.4); Carbon Dioxide 25 mmol/L (20-31); Chloride 98 mmol/L (98-107); Glucose 102 mg/dL (74-106); Potassium 4.1 mmol/L (3.5-5.1); Sodium 136 mmol/L (136-145)
[2024-04-06 08:15] LABS: Bilirubin, Total 0.4 mg/dL (0.2-1.0); Total Protein 7.8 g/dL (5.7-8.2)
[2024-04-06 08:44] LABS: INR 2.18 (0.9-1.15); Partial Thromboplastin Time 34.7 SEC (24.5-34.5); Prothrombin Time 21.8 sec (9.3-11.8)
[2024-04-06] MEDS: ALBUMIN 25% 100 ML IV SCH (11:17)
[2024-04-06] MEDS: SODIUM CHL 0.9% 1000 ML BAG XX ONE (11:37)
[2024-04-06] MEDS: WARFARIN SODIUM 5 MG TAB PO ONE (18:03)
[2024-04-07] VITALS (9 sets, daily range): BP systolic 89–108; BP diastolic 49–68; PULSE 69–85; RESP 18–20; TEMP 97.4–98.4; O2SAT 93–100
[2024-04-08] VITALS (11 sets, daily range): BP systolic 88–114; BP diastolic 41–74; PULSE 64–92; RESP 13–21; TEMP 97.1–98.5; O2SAT 93–100
[2024-04-08] MEDS: ceFAZolin 2 GM/D5W100ml 100 ML IV ONE (10:51)
[2024-04-08] MEDS: ceFAZolin 1GM/50ML 50 ML IV ONE (10:54)
[2024-04-08] MEDS ORDERED: HEPARIN SODIUM (PORCINE) 5000 UNITS/ML 1ML VIAL ONE (11:16)
[2024-04-08] MEDS ORDERED: KETAMINE 50mg/ML 1ml syringe ONE ×2 (11:38→12:22)
[2024-04-08] MEDS ORDERED: fentaNYL CITRATE 100 MCG/2 ML VL ONE (11:39)
[2024-04-08] MEDS ORDERED: MIDAZOLAM HCL 2MG/2ML 2ml VIAL (1mg/ml) ONE (11:39)
[2024-04-08] MEDS ORDERED: GLYCOPYRROLATE 0.2 MG/ML 1ML VIAL ONE (11:39)
[2024-04-08] MEDS ORDERED: PROPOFOL 10 MG/ML 20 ML IV ONE (11:39)
[2024-04-08] MEDS: BUPIVACAINE 0.25% INJ 50ML VIAL ONE (12:21)
[2024-04-08] MEDS: LIDOCAINE 1% HCL (LOCAL ANESTH.) INJ 20ML MDV ONE (12:21)
[2024-04-09] VITALS (12 sets, daily range): BP systolic 85–119; BP diastolic 27–56; PULSE 64–85; RESP 16–20; TEMP 97.6–98.5; O2SAT 93–100
[2024-04-09 08:13] LABS: Chloride 98 mmol/L (98-107); Potassium 4.9 mmol/L (3.5-5.1); Sodium 135 mmol/L (136-145)
[2024-04-09 08:14] LABS: Anion Gap 11 (5-15); Calcium 9.3 mg/dL (8.7-10.4); Carbon Dioxide 26 mmol/L (20-31)
[2024-04-09 08:19] LABS: BUN/Creatinine Ratio 5.2 (10.0-20.0); Blood Urea Nitrogen 41 mg/dL (9-23); Glucose 100 mg/dL (74-106)
[2024-04-09 08:28] LABS: Basophils # (auto) 0.1 10 ^3/uL (0-0.2); Basophils % (auto) 1.2 % (0.0-2.0); Eosinophils # (auto) 0.5 10 ^3/uL (0-0.8); Eosinophils % (auto) 6.6 % (0.0-7.0); Hematocrit 31.4 % (41.0-53.0); Hemoglobin 10.1 g/dL (13.5-17.5); Lymphocytes # (auto) 1.4 10 ^3/uL (0.4-5.4); Lymphocytes % (auto) 18.6 % (10.0-50.0); Mean Corpuscular Hemoglobin 28.1 pg (28.0-32.0); Mean Corpuscular Hgb Conc. 32.3 g/dL (32.0-36.0); Monocytes # (auto) 0.4 10 ^3/uL (0-1.3); Monocytes % (auto) 5.8 % (0.0-12.0); Neutrophils % (auto) 67.8 % (37.0-80.0); Nucleated Red Blood Cells % 0.1 %; Platelet Count (auto) 265 10^3/uL (140-450); Red Blood Cells 3.61 10^6/uL (4.5-5.90); Red Cell Distribution Width 17.5 % (11.8-14.3); White Blood Cell 7.4 10^3/uL (4.4-10.8)
[2024-04-09] MEDS: LORATADINE 10 MG TAB PO SCH (10:00)
[2024-04-09] MEDS: CATHFLO ACTIVASE (ALTEPLASE) 2 MG VIAL IV ONE (14:06)
[2024-04-09] MEDS: SODIUM CHL 0.9% 1000 ML BAG XX ONE (14:06)
[2024-04-09] MEDS: WARFARIN SODIUM 2 MG TAB PO ONE (17:00)
[2024-04-10] VITALS (10 sets, daily range): BP systolic 100–155; BP diastolic 46–92; PULSE 23–87; RESP 16–19; TEMP 97–97.9; O2SAT 90–100
[2024-04-10 08:47] LABS: INR 2.16 (0.9-1.15); Prothrombin Time 21.6 sec (9.3-11.8)
[2024-04-10] MEDS: WARFARIN SODIUM 2 MG TAB PO ONE (17:00)
[2024-04-11] VITALS (10 sets, daily range): BP systolic 107–136; BP diastolic 53–72; PULSE 63–100; RESP 18–20; TEMP 97.6–98.1; O2SAT 96–100
[2024-04-11 06:56] LABS: INR 2.08 (0.9-1.15); Prothrombin Time 20.9 sec (9.3-11.8)
[2024-04-11] MEDS ORDERED: SODIUM CHL 0.9% 1000 ML BAG XX ONE (07:00)
[2024-04-11 07:06] LABS: Basophils # (auto) 0.1 10 ^3/uL (0-0.2); Basophils % (auto) 1.5 % (0.0-2.0); Eosinophils # (auto) 0.5 10 ^3/uL (0-0.8); Eosinophils % (auto) 5.8 % (0.0-7.0); Hematocrit 31.2 % (41.0-53.0); Hemoglobin 9.7 g/dL (13.5-17.5); Lymphocytes # (auto) 2.2 10 ^3/uL (0.4-5.4); Lymphocytes % (auto) 26.2 % (10.0-50.0); Mean Corpuscular Hemoglobin 28.4 pg (28.0-32.0); Mean Corpuscular Hgb Conc. 31.1 g/dL (32.0-36.0); Mean Corpuscular Volume 91.3 fL (80.0-100.0); Monocytes # (auto) 0.5 10 ^3/uL (0-1.3); Monocytes % (auto) 5.8 % (0.0-12.0); Neutrophils % (auto) 60.7 % (37.0-80.0); Platelet Count (auto) 248 10^3/uL (140-450); Red Blood Cells 3.42 10^6/uL (4.5-5.90); Red Cell Distribution Width 18.3 % (11.8-14.3); White Blood Cell 8.3 10^3/uL (4.4-10.8)
[2024-04-11] MEDS: WARFARIN SODIUM 2 MG TAB PO ONE (18:28)
[2024-04-11] MEDS: EPOETIN ALFA-EPBX 10,000 UNIT/1ML VIAL SC ONE (22:36)
[2024-04-12] VITALS (13 sets, daily range): BP systolic 88–118; BP diastolic 32–60; PULSE 70–92; RESP 17–20; TEMP 97.6–98.1; O2SAT 94–100
[2024-04-12 06:48] LABS: Basophils # (auto) 0.1 10 ^3/uL (0-0.2); Eosinophils # (auto) 0.4 10 ^3/uL (0-0.8); Eosinophils % (auto) 4.6 % (0.0-7.0); Hematocrit 34.7 % (41.0-53.0); Hemoglobin 11.3 g/dL (13.5-17.5); Lymphocytes # (auto) 1.4 10 ^3/uL (0.4-5.4); Lymphocytes % (auto) 14.5 % (10.0-50.0); Mean Corpuscular Hemoglobin 28.1 pg (28.0-32.0); Mean Corpuscular Hgb Conc. 32.4 g/dL (32.0-36.0); Mean Corpuscular Volume 86.7 fL (80.0-100.0); Monocytes # (auto) 0.5 10 ^3/uL (0-1.3); Monocytes % (auto) 5.6 % (0.0-12.0); Neutrophils # (auto) 7.2 10 ^3/uL (1.6-8.6); Neutrophils % (auto) 74.3 % (37.0-80.0); Platelet Count (auto) 309 10^3/uL (140-450); Red Blood Cells 4.01 10^6/uL (4.5-5.90); White Blood Cell 9.6 10^3/uL (4.4-10.8)
[2024-04-12 06:58] LABS: INR 2.14 (0.9-1.15); Partial Thromboplastin Time 40.7 SEC (24.5-34.5); Prothrombin Time 21.4 sec (9.3-11.8)
[2024-04-12] MEDS: WARFARIN SODIUM 2 MG TAB PO ONE (17:16)
[2024-04-13] VITALS (8 sets, daily range): BP systolic 98–124; BP diastolic 58–109; PULSE 69–91; RESP 16–20; TEMP 95–98.6; O2SAT 94–99
[2024-04-13 06:02] LABS: Basophils # (auto) 0.1 10 ^3/uL (0-0.2); Eosinophils # (auto) 0.4 10 ^3/uL (0-0.8); Eosinophils % (auto) 4.7 % (0.0-7.0); Hematocrit 32.9 % (41.0-53.0); Hemoglobin 10.7 g/dL (13.5-17.5); Lymphocytes # (auto) 2.2 10 ^3/uL (0.4-5.4); Lymphocytes % (auto) 23.5 % (10.0-50.0); Mean Corpuscular Hemoglobin 28.1 pg (28.0-32.0); Mean Corpuscular Hgb Conc. 32.7 g/dL (32.0-36.0); Mean Corpuscular Volume 86.1 fL (80.0-100.0); Monocytes # (auto) 0.5 10 ^3/uL (0-1.3); Monocytes % (auto) 5.3 % (0.0-12.0); Neutrophils # (auto) 6.2 10 ^3/uL (1.6-8.6); Neutrophils % (auto) 65.5 % (37.0-80.0); Platelet Count (auto) 327 10^3/uL (140-450); Red Blood Cells 3.82 10^6/uL (4.5-5.90); Red Cell Distribution Width 17.3 % (11.8-14.3); White Blood Cell 9.5 10^3/uL (4.4-10.8)
[2024-04-13 06:07] LABS: INR 2.33 (0.9-1.15); Prothrombin Time 23.2 sec (9.3-11.8)
[2024-04-13] MEDS: WARFARIN SODIUM 2 MG TAB PO ONE (15:52)
== END 2024-04-13 19:41 | DRG 264 ==
LOC: EDBD 09:48 → ER 09:53 → OVERFLOW 13:43 → ICU WEST 17:52 → DOU IN ICU 03-24 18:30 → TELE-CENTR 03-31 15:39
PROVIDERS: ADMIT Internal Medicine; ATTEND Internal Medicine
PROC: 5A1955Z Respiratory Ventilation, Greater than 96 Consecutive Hours (ICD-10-PCS; principal; 2024-02-18)
PROC: 0BH17EZ Insertion of Endotracheal Airway into Trachea, Via Natural or Artificial Opening (ICD-10-PCS; 2024-02-18)
PROC: 5A1D70Z Performance of Urinary Filtration, Intermittent, Less than 6 Hours Per Day (ICD-10-PCS; 2024-02-19)
PROC: 0JPTXXZ Removal of Tunneled Vascular Access Device from Trunk Subcutaneous Tissue and Fascia, External Approach (ICD-10-PCS; 2024-02-24)
PROC: 02PYX3Z Removal of Infusion Device from Great Vessel, External Approach (ICD-10-PCS; 2024-02-24)
PROC: 02H633Z Insertion of Infusion Device into Right Atrium, Percutaneous Approach (ICD-10-PCS; 2024-02-24)
PROC: B5181ZA Fluoroscopy of Superior Vena Cava using Low Osmolar Contrast, Guidance (ICD-10-PCS; 2024-02-24)
PROC: B548ZZA Ultrasonography of Superior Vena Cava, Guidance (ICD-10-PCS; 2024-02-24)
PROC: 5A1D70Z Performance of Urinary Filtration, Intermittent, Less than 6 Hours Per Day (ICD-10-PCS; 2024-02-25)
PROC: 5A1D70Z Performance of Urinary Filtration, Intermittent, Less than 6 Hours Per Day (ICD-10-PCS; 2024-02-25)
PROC: 5A1D70Z Performance of Urinary Filtration, Intermittent, Less than 6 Hours Per Day (ICD-10-PCS; 2024-02-25)
PROC: 5A1D70Z Performance of Urinary Filtration, Intermittent, Less than 6 Hours Per Day (ICD-10-PCS; 2024-02-27)
PROC: 5A1D70Z Performance of Urinary Filtration, Intermittent, Less than 6 Hours Per Day (ICD-10-PCS; 2024-02-27)
PROC: 5A1D70Z Performance of Urinary Filtration, Intermittent, Less than 6 Hours Per Day (ICD-10-PCS; 2024-02-27)
PROC: 5A09357 Assistance with Respiratory Ventilation, Less than 24 Consecutive Hours, Continuous Positive Airway Pressure (ICD-10-PCS; 2024-02-27)
PROC: 5A09357 Assistance with Respiratory Ventilation, Less than 24 Consecutive Hours, Continuous Positive Airway Pressure (ICD-10-PCS; 2024-02-27)
PROC: 5A1D70Z Performance of Urinary Filtration, Intermittent, Less than 6 Hours Per Day (ICD-10-PCS; 2024-03-03)
PROC: 5A1D70Z Performance of Urinary Filtration, Intermittent, Less than 6 Hours Per Day (ICD-10-PCS; 2024-03-07)
PROC: 5A1D70Z Performance of Urinary Filtration, Intermittent, Less than 6 Hours Per Day (ICD-10-PCS; 2024-03-09)
PROC: 5A1D70Z Performance of Urinary Filtration, Intermittent, Less than 6 Hours Per Day (ICD-10-PCS; 2024-03-11)
PROC: 02PYX3Z Removal of Infusion Device from Great Vessel, External Approach (ICD-10-PCS; 2024-03-11)
PROC: 06JYXZZ Inspection of Lower Vein, External Approach (ICD-10-PCS; 2024-03-12)
PROC: 5A09357 Assistance with Respiratory Ventilation, Less than 24 Consecutive Hours, Continuous Positive Airway Pressure (ICD-10-PCS; 2024-03-12)
PROC: 0JHN3XZ Insertion of Tunneled Vascular Access Device into Right Lower Leg Subcutaneous Tissue and Fascia, Percutaneous Approach (ICD-10-PCS; 2024-03-13)
PROC: B54BZZA Ultrasonography of Right Lower Extremity Veins, Guidance (ICD-10-PCS; 2024-03-13)
PROC: 5A1D70Z Performance of Urinary Filtration, Intermittent, Less than 6 Hours Per Day (ICD-10-PCS; 2024-03-13)
PROC: 5A09357 Assistance with Respiratory Ventilation, Less than 24 Consecutive Hours, Continuous Positive Airway Pressure (ICD-10-PCS; 2024-03-13)
PROC: 06HM33Z Insertion of Infusion Device into Right Femoral Vein, Percutaneous Approach (ICD-10-PCS; 2024-03-13)
PROC: 5A1D70Z Performance of Urinary Filtration, Intermittent, Less than 6 Hours Per Day (ICD-10-PCS; 2024-03-17)
PROC: 0JH63XZ Insertion of Tunneled Vascular Access Device into Chest Subcutaneous Tissue and Fascia, Percutaneous Approach (ICD-10-PCS; 2024-03-18)
PROC: 06H033Z Insertion of Infusion Device into Inferior Vena Cava, Percutaneous Approach (ICD-10-PCS; 2024-03-18)
PROC: B5191ZA Fluoroscopy of Inferior Vena Cava using Low Osmolar Contrast, Guidance (ICD-10-PCS; 2024-03-18)
PROC: B549ZZA Ultrasonography of Inferior Vena Cava, Guidance (ICD-10-PCS; 2024-03-18)
PROC: 5A1D70Z Performance of Urinary Filtration, Intermittent, Less than 6 Hours Per Day (ICD-10-PCS; 2024-03-19)
PROC: 5A09357 Assistance with Respiratory Ventilation, Less than 24 Consecutive Hours, Continuous Positive Airway Pressure (ICD-10-PCS; 2024-03-19)
PROC: 5A09357 Assistance with Respiratory Ventilation, Less than 24 Consecutive Hours, Continuous Positive Airway Pressure (ICD-10-PCS; 2024-03-20)
PROC: 5A1D70Z Performance of Urinary Filtration, Intermittent, Less than 6 Hours Per Day (ICD-10-PCS; 2024-03-21)
PROC: 5A09357 Assistance with Respiratory Ventilation, Less than 24 Consecutive Hours, Continuous Positive Airway Pressure (ICD-10-PCS; 2024-03-21)
PROC: 5A09357 Assistance with Respiratory Ventilation, Less than 24 Consecutive Hours, Continuous Positive Airway Pressure (ICD-10-PCS; 2024-03-22)
PROC: 5A09357 Assistance with Respiratory Ventilation, Less than 24 Consecutive Hours, Continuous Positive Airway Pressure (ICD-10-PCS; 2024-03-23)
PROC: 5A1D70Z Performance of Urinary Filtration, Intermittent, Less than 6 Hours Per Day (ICD-10-PCS; 2024-03-24)
PROC: 5A09357 Assistance with Respiratory Ventilation, Less than 24 Consecutive Hours, Continuous Positive Airway Pressure (ICD-10-PCS; 2024-03-24)
PROC: 5A09357 Assistance with Respiratory Ventilation, Less than 24 Consecutive Hours, Continuous Positive Airway Pressure (ICD-10-PCS; 2024-03-25)
PROC: 5A1D70Z Performance of Urinary Filtration, Intermittent, Less than 6 Hours Per Day (ICD-10-PCS; 2024-03-26)
PROC: 0J2TXYZ Change Other Device in Trunk Subcutaneous Tissue and Fascia, External Approach (ICD-10-PCS; 2024-03-27)
PROC: B519YZZ Fluoroscopy of Inferior Vena Cava using Other Contrast (ICD-10-PCS; 2024-03-27)
PROC: 5A1D70Z Performance of Urinary Filtration, Intermittent, Less than 6 Hours Per Day (ICD-10-PCS; 2024-03-28)
PROC: 5A1D70Z Performance of Urinary Filtration, Intermittent, Less than 6 Hours Per Day (ICD-10-PCS; 2024-03-31)
PROC: 5A09357 Assistance with Respiratory Ventilation, Less than 24 Consecutive Hours, Continuous Positive Airway Pressure (ICD-10-PCS; 2024-04-01)
PROC: 5A1D70Z Performance of Urinary Filtration, Intermittent, Less than 6 Hours Per Day (ICD-10-PCS; 2024-04-02)
PROC: 5A09357 Assistance with Respiratory Ventilation, Less than 24 Consecutive Hours, Continuous Positive Airway Pressure (ICD-10-PCS; 2024-04-02)
PROC: 5A09357 Assistance with Respiratory Ventilation, Less than 24 Consecutive Hours, Continuous Positive Airway Pressure (ICD-10-PCS; 2024-04-03)
PROC: 5A1D70Z Performance of Urinary Filtration, Intermittent, Less than 6 Hours Per Day (ICD-10-PCS; 2024-04-04)
PROC: 5A09357 Assistance with Respiratory Ventilation, Less than 24 Consecutive Hours, Continuous Positive Airway Pressure (ICD-10-PCS; 2024-04-04)
PROC: 5A1D70Z Performance of Urinary Filtration, Intermittent, Less than 6 Hours Per Day (ICD-10-PCS; 2024-04-06)
PROC: 5A09357 Assistance with Respiratory Ventilation, Less than 24 Consecutive Hours, Continuous Positive Airway Pressure (ICD-10-PCS; 2024-04-06)
PROC: 03170ZD Bypass Right Brachial Artery to Upper Arm Vein, Open Approach (ICD-10-PCS; 2024-04-08)
PROC: 5A09357 Assistance with Respiratory Ventilation, Less than 24 Consecutive Hours, Continuous Positive Airway Pressure (ICD-10-PCS; 2024-04-08)
PROC: 5A1D70Z Performance of Urinary Filtration, Intermittent, Less than 6 Hours Per Day (ICD-10-PCS; 2024-04-09)
PROC: 5A1D70Z Performance of Urinary Filtration, Intermittent, Less than 6 Hours Per Day (ICD-10-PCS; 2024-04-09)
PROC: 5A09357 Assistance with Respiratory Ventilation, Less than 24 Consecutive Hours, Continuous Positive Airway Pressure (ICD-10-PCS; 2024-04-13)
DX: T80.211A Bloodstream infection due to central venous catheter, initial encounter (principal); J96.21 Acute and chronic respiratory failure with hypoxia; A41.81 Sepsis due to Enterococcus; G93.41 Metabolic encephalopathy; R65.21 Severe sepsis with septic shock; J15.212 Pneumonia due to Methicillin resistant Staphylococcus aureus; I50.33 Acute on chronic diastolic (congestive) heart failure; N18.6 End stage renal disease; I13.2 Hypertensive heart and chronic kidney disease with heart failure and with stage 5 chronic kidney disease, or end stage renal disease; E44.0 Moderate protein-calorie malnutrition; B49 Unspecified mycosis; E87.1 Hypo-osmolality and hyponatremia; I82.C11 Acute embolism and thrombosis of right internal jugular vein; J44.0 Chronic obstructive pulmonary disease with (acute) lower respiratory infection; D68.69 Other thrombophilia; Z68.43 Body mass index [BMI] 50.0-59.9, adult; E66.01 Morbid (severe) obesity due to excess calories; K21.9 Gastro-esophageal reflux disease without esophagitis; E11.22 Type 2 diabetes mellitus with diabetic chronic kidney disease; D63.1 Anemia in chronic kidney disease; N30.90 Cystitis, unspecified without hematuria; G47.30 Sleep apnea, unspecified; E11.51 Type 2 diabetes mellitus with diabetic peripheral angiopathy without gangrene; Y84.8 Other medical procedures as the cause of abnormal reaction of the patient, or of later complication, without mention of misadventure at the time of the procedure; D69.6 Thrombocytopenia, unspecified; E88.810 Metabolic syndrome; I48.0 Paroxysmal atrial fibrillation; E78.5 Hyperlipidemia, unspecified; I25.10 Atherosclerotic heart disease of native coronary artery without angina pectoris; Z99.2 Dependence on renal dialysis; Z91.199 Patient's noncompliance with other medical treatment and regimen due to unspecified reason; Z88.1 Allergy status to other antibiotic agents; Z88.8 Allergy status to other drugs, medicaments and biological substances; Z79.899 Other long term (current) drug therapy; Z79.891 Long term (current) use of opiate analgesic; Z79.1 Long term (current) use of non-steroidal anti-inflammatories (NSAID); Z91.158 Patient's noncompliance with renal dialysis for other reason; Z79.01 Long term (current) use of anticoagulants; Z79.84 Long term (current) use of oral hypoglycemic drugs; Z82.49 Family history of ischemic heart disease and other diseases of the circulatory system; Z87.891 Personal history of nicotine dependence; Z89.429 Acquired absence of other toe(s), unspecified side; Y92.89 Other specified places as the place of occurrence of the external cause; Z74.01 Bed confinement status; Z86.718 Personal history of other venous thrombosis and embolism
CPT/HCPCS: 36415; 36558; 36569; 36600; 71045; 73620; 76604; 76775; 76942; 77001; 80048; 80053; 80074; 80202; 80307; 81001; 82043; 82306; 82550; 82553; 82570; 82607; 82728; 82805; 82962; 83540; 83550; 83605; 83735; 83880; 83930; 83935; 83986; 84100; 84132; 84133; 84156; 84300; 84443; 84484; 85007; 85014; 85018; 85025; 85027; 85610; 85730; 86704; 86706; 87040; 87070; 87075; 87077; 87081; 87086; 87088; 87186; 87205; 87340; 89051; 90935; 92610; 93005; 93306; 93970; 93971; 94002; 94003; 94640; 94660; 97110; 97163; 97530; 99152; 99291; C1894; G0378; J1450; J1642; J1815; J2003; J2185; J2248; J2250; J2704; J3480; J3490; J7060; P9047; Q9967